=== PATIENT | female | born 1950 | race Two or more races ===

== ENCOUNTER 2017-09-17 21:44 | Emergency (ER) | payer MEDICARE, OTHER ==
[~2017-09-17] VITALS: Ht 147.3 cm; Wt 62.1 kg
[2017-09-17] MEDS ORDERED: ALLOPURINOL300 MG PO (22:38)
[2017-09-17] MEDS ORDERED: LISINOPRIL30 MG PO (22:38)
[2017-09-17] MEDS ORDERED: LEVOTHYROXINE88 MCG PO (22:39)
[2017-09-17] MEDS ORDERED: ASPIR-LOW81 MG PO (22:39)
[2017-09-17] MEDS ORDERED: VITAMIN D22000 UNIT PO (22:40)
== END 2017-09-17 23:11 | disposition home or self-care (01) ==
LOC: ED 21:44
DX: M10.9 Gout, unspecified (principal); I10 Essential (primary) hypertension; E03.9 Hypothyroidism, unspecified; F17.200 Nicotine dependence, unspecified, uncomplicated; Z88.5 Allergy status to narcotic agent; Z88.6 Allergy status to analgesic agent; Z79.82 Long term (current) use of aspirin; Z79.899 Other long term (current) drug therapy
CPT/HCPCS: 99282

== ENCOUNTER 2021-01-25 15:39 | Observation (INO) | payer MEDICARE, OTHER ==
[~2021-01-25] VITALS: Ht 147.3 cm; Wt 54.7 kg
[~2021-01-25 15:39] MED LIST: ALLOPURINOL300 MG PO; ASPIR-LOW81 MG PO; LEVOTHYROXINE88 MCG PO; LISINOPRIL30 MG PO; VITAMIN D22000 UNIT PO
--- NOTE | 2021-01-25 18:55 | EKG ---
[facility] [address] [facility] [place] [address] Signed Normal sinus rhythm Biatrial enlargement Rightward axis Pulmonary disease pattern T wave abnormality, consider inferior ischemia Abnormal ECG No previous ECGs available Confirmed by LILIA FISCHER MD ([id number]) on 01/25/2021 6:54:51 PM Electronically Signed By: LILIA FISCHER MD 01/25/21 1855 PATIENT NAME: MELBA BRENNANJOYCE DALTON Electrocardiogram DATE OF : 52 PHYSICIAN: LILIA FISCHER MD REPORT #: [id number] REPORT IS CONFIDENTIAL AND NOT TO BE RELEASED WITHOUT AUTHORIZATION
--- NOTE | 2021-01-26 11:09 | CONS ---
[facility] [address] [place], [place] [address] Signed DATE OF CONSULTATION: 01/26/2021 CHIEF COMPLAINT: Shortness of breath. HISTORY OF PRESENT ILLNESS: Jd is a 70-year-old French lady who is originally from [place]. She has been in the [facility] many years. She has worked here in [place], [place] for many years and is now retired. She has her own home and drives. She smoked around a pack of cigarettes a day, but is down to about five cigarettes a day because of the cost. She said her one and only child committed suicide and she is . However, she does have a friend named Eloisa, who spends time with her here in [place]. The last 3-4 weeks she has had trouble with some shortness of breath and dyspnea on exertion and a cough. She thinks maybe there are some brown flecks in the in the clear sputum. Her oxygen levels have been little low, so she decided to come the emergency room yesterday evening for evaluation. In the emergency room, her O2 sats were in the high 80s and low 90s. Chest x-ray showed patchy densities in the right mid lower lung and obscuration of the right hemidiaphragm. In the meantime, CT scan was ordered and she got admitted to the Internal Medicine Service. CT scan came back with a moderate-sized right pleural effusion with tethering of the lung to the lateral chest wall as well as the diaphragm in the middle lobe. She has extensive right hilar mediastinal adenopathy along with multiple lesions in the dome of her liver. There is also at least two spiculated lesions in the right lung. And again, her moderate-sized right pleural effusion. Overall, Jd was resistant to admission and testing and so forth. She still remains anxious to go home. Otherwise, she has been hemodynamically stable. PAST MEDICAL HISTORY: Hypothyroidism, hypertension, and gout. PAST SURGICAL HISTORY: , left carpal release. SOCIAL HISTORY: She was smoking a pack of cigarettes a day, but is down to five cigarettes per day mainly because of cost. She does not drink. Dr. Paul Patel is her primary care provider. She prefers to [facility]. Her only son committed suicide. She is and lives alone. She has a friend Eloisa Montero at [phone]. She has her own house and does drive here in town. FAMILY HISTORY: She was an only child, but she remembers her mom had COPD from smoking and her dad of old age at 97. He had been treated for gallstones. Electronically Signed By: ABI DEVINE MD 01/26/21 1109 PATIENT NAME: JD BRENNAN CONSULTATION DATE OF : 52 REPORT #: [id number] PHYSICIAN: ABI DEVINE MD PCP: PAUL PATEL MD REPORT IS CONFIDENTIAL AND NOT TO BE RELEASED WITHOUT AUTHORIZATION [facility] [address] [place] [id number] Signed REVIEW OF SYSTEMS: Jd had 10 systems reviewed and we focused mainly on her pulmonary symptoms. Those were reviewed above. ALLERGIES: Codeine and Tylenol. MEDICATIONS: Allopurinol, lisinopril, levothyroxine, aspirin, and vitamins. PHYSICAL EXAMINATION: VITAL SIGNS: Her blood pressure is 181/87, heart rate is 81, respiratory rate is 20, temperature 97.4, she is 94% on room air. She is 4 feet 10 inches at 54 kg. GENERAL: Jd is a 70-year-old female lying supine semi-recumbent in her hospital bed. She has good muscle mass. Very minimal shortness of breath. She is able to talk in full sentences. She results of her CT scan. LUNGS: Have bilateral rhonchi. HEART: Regular rate and rhythm without murmur. ABDOMEN: Soft, flat and nontender. I cannot palpate any hepatosplenomegaly. LABORATORY DATA: Her white blood count is 8, hemoglobin 15, neutrophils 66, platelets 217. Electrolytes are unremarkable. COVID is negative. Troponin is negative. BNP is 89. RADIOGRAPHIC STUDIES: The chest x-ray showed patchy density in the right mid and lower lung with obscuration of the right hemidiaphragm. Unfortunately, I cannot get the x-rays to come up today to review them directly. The CT scan of the chest showed the moderate-sized right pleural effusion with at least two spiculated lesions in the right lung and multiple lesions in the top of the liver. The right middle lobe is tethered to her lateral chest wall along with the diaphragm. She has extensive quite enlarged right hilar and mediastinal lymphadenopathy. ASSESSMENT/PLAN: Jd is a 70-year-old female who presents with what appears to be right-sided lung cancer. It is quite extensive. She is a little short of breath, but is able to function at home. She is quite anxious to leave. We talked about her current findings in detail including the CT scan of her chest. She is well aware that this is quite extensive. She is in need of some level of tissue diagnosis. I explained to her that to do this blindly with thoracentesis today would probably be unwise and could lead to a pneumothorax given the fact her lungs tethered to the chest wall and to the diaphragm. She will be much better served to have this done under our controlled condition tomorrow the next day with ultrasound-guided thoracentesis or she can travel to our [facility] to review this with the assistant department manager and decide what would be Electronically Signed By: ABI DEVINE MD 01/26/21 5427 PATIENT NAME: JD BRENNAN CONSULTATION DATE OF : 52 REPORT #: [id number] PHYSICIAN: ABI DEVINE MD PCP: PAUL PATEL MD REPORT IS CONFIDENTIAL AND NOT TO BE RELEASED WITHOUT AUTHORIZATION [facility] [address] [place] [id number] Signed her best options at this point as far as biopsy and treatment beyond that. She understands what we have discussed in detail. I have also reviewed it with Dr. Greer. They have expressed understanding and agreed to above plan. Abi Devine MD ALB/MODL /[id number] cc: MD Abi Moralez MD Copies: PAUL PATEL MD, ANDREW L MD ~ Electronically Signed By: ABI DEVINE MD 01/26/21 1109 PATIENT NAME: JD BRENNAN CONSULTATION DATE OF : 52 REPORT #: [id number] PHYSICIAN: ABI DEVINE MD PCP: PAUL PATEL MD REPORT IS CONFIDENTIAL AND NOT TO BE RELEASED WITHOUT AUTHORIZATION
[2021-01-27] MEDS ORDERED: LEVOTHYROXINE75 MCG PO (08:25)
[2021-01-27] MEDS ORDERED: ALBUTEROL2.5 MG/3 M INH (12:40)
--- NOTE | 2021-01-27 18:29 | CONS ---
[facility] [address] [place], [place] [address] Signed DATE OF CONSULTATION: 01/26/2021 CONSULTING PHYSICIAN: Liz Justin MD REQUESTING PHYSICIAN: Nola Greer MD PROBLEM: Symptomatic right pleural effusion, likely malignant. HISTORY OF PRESENT ILLNESS: This 70-year-old dark-skinned woman was admitted by Dr. Greer on January 25, 2021, having been seen through the emergency room with significant shortness of breath. A chest x-ray showed haziness of the right pleural space and chest and subsequent CT scan was obtained, which shows a moderate-size right-sided pleural effusion, a significant mediastinal mass with adenopathy, and probable metastatic disease to the liver. The patient continues to smoke. The patient was considered to have acute hypoxemic respiratory failure at presentation. She has extreme shortness of breath with any exertion. She is noted to have negative COVID-19 test. LABORATORY DATA: Other laboratory studies showed a normal troponin level. BNP of only 89 and normal electrolytes. Creatinine is 1.03. White count of 9.5, hematocrit 49, and platelet count of 250,000. Dr. Greer requests evaluation and consideration for decompression of the right pleural effusion on the basis of probable underlying incurable neoplasm. There were no other resources available to accomplish this task at this time. REVIEW OF SYSTEMS: The patient denies any hemoptysis. She does have significant shortness of breath. Most dominantly, she would like a shower right now. PHYSICAL EXAMINATION: GENERAL: A small dark-skinned white woman, who looks to be alert and oriented without sign of delirium. VITAL SIGNS: Temperature is 97.6, pulse 95, blood pressure 136/69, O2 saturation is 96% on 3 L nasal cannula. HEENT: Trachea is midline. CHEST: Shows dullness to percussion in the right lung base. Left side normal. Electronically Signed By: LIZ JUSTIN MD 01/27/21 1829 PATIENT NAME: JD BRENNAN CONSULTATION DATE OF : 52 REPORT #: [id number] PHYSICIAN: LIZ JUSTIN MD PCP: PAUL KHAN MD REPORT IS CONFIDENTIAL AND NOT TO BE RELEASED WITHOUT AUTHORIZATION [facility] [address] [place], [place] [address] Signed EXTREMITIES: Show minimal clubbing. ASSESSMENT: I have reviewed the plain chest x-ray as well as the CT scan in detail. I do not believe there is high likelihood of pleural tethering and her pleural effusion would be considered moderate, but likely contributing to her subjective shortness of breath at this time. If malignancy is identified on pleural fluid cytology as it is quite likely, this would indicate incurable neoplasm for which palliative treatment might be indicated. This could include possibility of pleurodesis to prevent recurrent effusion. I discussed the risks of bleeding, infection, pneumothorax, and so forth to the patient. Any of those complications may require a formal chest tube. She understands that. Under these circumstances, she does wish to proceed with the procedure, which we will perform today. MD YEMI Rodriguez/VICENTA /[id number] cc: MD Nola Moralez MD Copies: PAUL KHAN MD, CYNTHIA MD ~ Electronically Signed By: LIZ JUSTIN MD 01/27/21 1829 PATIENT NAME: JD BRENNAN CONSULTATION DATE OF : 52 REPORT #: [id number] PHYSICIAN: LIZ JUSTIN MD PCP: PAUL KHAN MD REPORT IS CONFIDENTIAL AND NOT TO BE RELEASED WITHOUT AUTHORIZATION
--- NOTE | 2021-01-27 18:29 | OR ---
[facility] [address] [place], [place] [address] Signed DATE OF OPERATION: 01/26/2021 SURGEON: Liz Justin MD PREOPERATIVE DIAGNOSIS: Right pleural effusion, symptomatic, probably malignant. POSTOPERATIVE DIAGNOSIS: Right pleural effusion, symptomatic, probably malignant. PROCEDURE: Right thoracentesis. ANESTHESIA: 1% lidocaine. INDICATION: This 70-year-old woman lives locally and has for many years. She presented to the emergency room with shortness of breath on 01/25/2021, was admitted by Dr. Greer for finding showing a right-sided pleural effusion. A CT scan was subsequently performed confirming a moderate size right-sided pleural effusion. There was mediastinal adenopathy, a central hilar lung lesion and probable hepatic metastasis as well. I have been requested by Dr. Greer to perform right-sided thoracentesis to assist in improvement of her dyspnea. The patient understands the risks of bleeding, infection, pneumothorax, and so forth related to thoracentesis and wished to proceed. FINDINGS: Fatoumata colored fluid was noted. Only 550 mL were withdrawn. I expected more. Intermittent catheter drainage was noted rather than continuous. A postprocedure chest x-ray is pending. DESCRIPTION OF PROCEDURE: The patient was placed in the upright position with arms draped over a Kaye stand and the right posterior chest wall examined closely. The tip of the scapula was marked and the posterior thorax prepared with a chlorhexidine solution. At the tip of the scapula, a rib was identified and local anesthesia 1% lidocaine was injected with sterile technique. The rib was anesthetized itself and passage of the anesthetizing needle over the rib did not particularly demonstrate fluid as I had expected. The thoracentesis Electronically Signed By: LIZ JUSTIN MD 01/27/21 1829 PATIENT NAME: JD BRENNAN OPERATIVE REPORT DATE OF : 52 REPORT #: [id number] PHYSICIAN: LIZ JUSTIN MD PCP: PAUL KHAN MD REPORT IS CONFIDENTIAL AND NOT TO BE RELEASED WITHOUT AUTHORIZATION [facility] [address] [place], [place] [address] Signed catheter was then carefully placed directly over the 7th rib after making a small chavo in the skin with an #11 blade. This delivered only minimal fluid. A similar procedure was then taken a few cm lateral to this along with same rib and then at this point, fatoumata colored fluid was obtained. The catheter was once again replaced in the pleural space and attached to a three-way stopcock and drainage of fluid undertaken. Only 550 mL of fluid was retrieved, I expected more but, the drainage of the fluid was only intermittent and not as vigorous as often seen. When adequate fluid had been withdrawn, the catheter was removed, both sites were secured with Band-Aids. The fluid would be sent for cytologic examination as well as the usual chemistries and culture and so forth. A postprocedure chest x-ray will be obtained. She tolerated procedure well clinically. MD YEMI Rodriguez/VICENTA /[id number] cc: Lilia Greer MD Copies: LILIA GREER MD ~ Electronically Signed By: LIZ JUSTIN MD 01/27/21 1829 PATIENT NAME: JD BRENNAN OPERATIVE REPORT DATE OF : 52 REPORT #: [id number] PHYSICIAN: LIZ JUSTIN MD PCP: PAUL KHAN MD REPORT IS CONFIDENTIAL AND NOT TO BE RELEASED WITHOUT AUTHORIZATION
== END 2021-01-27 15:50 | disposition home or self-care (01) ==
LOC: ED 15:39 → MS 15:41 → ED 20:06 → MS 20:06
PROVIDERS: ADMIT Internal Medicine; ATTEND Internal Medicine
PROC: 0W9930Z Drainage of Right Pleural Cavity with Drainage Device, Percutaneous Approach (ICD-10-PCS; principal; 2021-01-26)
DX: J90 Pleural effusion, not elsewhere classified (principal); J96.01 Acute respiratory failure with hypoxia; J95.811 Postprocedural pneumothorax; T79.7XXA Traumatic subcutaneous emphysema, initial encounter; T81.82XA Emphysema (subcutaneous) resulting from a procedure, initial encounter; R91.8 Other nonspecific abnormal finding of lung field; J44.9 Chronic obstructive pulmonary disease, unspecified; I10 Essential (primary) hypertension; E03.9 Hypothyroidism, unspecified; M10.9 Gout, unspecified; F17.201 Nicotine dependence, unspecified, in remission; Z20.822 Contact with and (suspected) exposure to COVID-19; Z88.8 Allergy status to other drugs, medicaments and biological substances; Z88.5 Allergy status to narcotic agent; Z98.890 Other specified postprocedural states; Z79.82 Long term (current) use of aspirin; Z79.899 Other long term (current) drug therapy
CPT/HCPCS: 71045; 71260; 80048; 83986; 84484; 85025; 85730; 88112; 88305; 89051; 93005; 93010; 94640; 94761; 96372; 99285-25; C9803; G0378; J1644; J3480; J7060; Q9967; U0003

== ENCOUNTER 2021-01-29 18:54 | Inpatient (IN) | payer MEDICARE, OTHER ==
[~2021-01-29] VITALS: Ht 147.3 cm; Wt 52.5 kg
[~2021-01-29 18:54] MED LIST changes: +ALBUTEROL2.5 MG/3 M INH; +LEVOTHYROXINE75 MCG PO
--- OUTSIDE RECORDS SUMMARY | 2021-01-29 19:02 | XMS ---
PreManage Notification: JD BRENNAN Security Brim Shaper Events No recent Security Events currently on file CRITERIA MET - [facility] - 2 Visits in 30 Days CARE PROVIDERS There are no care providers on record at this time. Josiah has no Care Guidelines for this patient. [facility] MO[facility] NOTE: Visits indicate total known visits. ED/[facility] VISIT TRACKING (12 MO.) [facility] COMPLAINT: - CHEST PROBLEM 01/25/2021 15:40 [facility] OR TYPE: Emergency COMPLAINT: - SOB, DIZZYNESS, COUGH INPATIENT VISIT TRACKING (12 MO.) 01/25/2021 20:06 RO[facility] Zamora OR TYPE: Medical Surgical COMPLAINT: - ACUTE HYPOXEMIC RESP. 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
--- NOTE | 2021-01-29 22:20 | NUR ---
PATIENT ARRIVED FROM ER VIA STRETCHER WITH NURSING GOVERNMENT PROFESSOR. PATIENT USES BEDSIDE COMMODE AND VOIDED. PATIENT IN BED AND CHEST TUBE CONNECTED TO LOW WALL SUCTION AND THERE IS NO AIR LEAK. PATIENT TITRATED DOWN FROM 6L/NC TO 4L/NC AND IS AT 93% AND CONTINUOUS PULSE OX PLACED. PATIENT'S IV FLUSHED AND WNL. SHAHRZAD DIRECTOR OF BUSINESS DEVELOPMENT ASKING ADMISSION HX QUESTIONS AND SAV JENNINGS HELPING IN THE ROOM.
--- NOTE | 2021-01-29 23:00 | NUR ---
PATIENT GIVEN FRESH ICE WATER AND 2 JELLOS. PATIENT'S CHEST TUBE TO LOW WALL SUCTION WITH NO AIR LEAK AND REMAINS ON 4L/NC. CALL LIGHT IN REACH.
--- NOTE | 2021-01-29 23:59 | NUR ---
PATIENT RESTING QUIETLY IN BED WATCHING TV. PATIENT ON 4L/NC AND SATS AT 93%. CHEST TUBE HAS NO LEAKS AND REMAINS ON LOW WALL SUCTION. PATIENT DENIES PAIN OR NAUSEA. NO OTHER CARE NEEDS AT THIS TIME. CALL LIGHT IN REACH.
--- NOTE | 2021-01-30 02:00 | NUR ---
PATIENT UP TO THE BEDSIDE COMMODE AND BACK TO BED WITH 1PA. PATIENT'S VS REMAIN STABLE ON 4L/NC AND CHEST TUBE REMAINS TO LOW WALL SUCTION AND THERE IS NO AIR LEAK. PATIENT HAD NO OTHER CARE NEEDS AT THIS TIME. CALL LIGHT IS IN REACH.
--- NOTE | 2021-01-30 04:34 | NUR ---
PATIENT REMAINS ON 4L/NC AND O2 SATS 95% WITH HR=76, EYES ARE CLOSED, RESPIRATIONS REGULAR AND EVEN, CALL LIGHT IS IN REACH.
--- NOTE | 2021-01-30 06:30 | NUR ---
PATIENT'S VS ARE STABLE AND LUNGS ASCULTATED AND SOUND LIKE THEY ARE INFLATING EQUALLY. NO SUBCUTANEOUS EMPHYSEMA NOTED, BUT THERE HAS BEEN A FAIR AMOUNT OF PINK DRAINAGE FROM UNDER THE PATIENT'S DRESSING WITH HER COUGHING. CHEST TUBE SYSTEM STILL SHOWS THE SYSTEM TO BE CLOSED AND NO LEAK. CALLED ABOUT THE DRESSING LEAKING AND ORDERS WERE GIVEN TO TAKE DOWN THE DRESSING AND REPLACE THE PETROLEUM GUAZE, GUAZE, AND TAPE. THIS WAS DONE AND PATIENT TOLERATED IT WELL AND DRAINAGE SYSTEM STILL WITHOUT LEAK AND REMAINS TO SUCTION AT -20. CALL LIGHT IS IN REACH.
--- NOTE | 2021-01-30 07:03 | NUR ---
Report from Isak Orourke RN. Patient lying in bed. Chest tube in place. No leaking noted. Drainage of 350 mL throughout night of serosanguinous drainage. Respirations even and unlabored, chest rise and fall equal bilaterally, no tracheal deviation. Remains on 4L/min per NC O2. Denies shortness of breath. Call light in reach, bed rails up X2.
--- NOTE | 2021-01-30 07:20 | NUR ---
Medications reconciled
--- NOTE | 2021-01-30 07:47 | NUR ---
Shift report recieved from VANDANA Andersen, pt resting in bed safely w/ call light in reach.
--- NOTE | 2021-01-30 08:00 | NUR ---
Tape for dressing to right chest tube reinforced. No leaking noted. Chest with equal rise and fall. No tracheal deviated noted. Respirations even and unlabored. Remains on O2 per NC at 4L/min. Denies feeling short of breath. Assist to sit up in bed for breakfast. Does not want to get in recliner when offered.
--- NOTE | 2021-01-30 08:20 | NUR ---
Pt SBA to BSc, pt voided and now sitting up in bed safely eating breakfast. Chest tube in place no leak obsereved, and no new drainage. Lungs ascultated, inspriratory/expiratory wheezes throughout. Chest expansion equal, VSS on 4L of O2. Pt denies any pain or SOB. No further needs at this time.
--- NOTE | 2021-01-30 08:58 | NUR ---
Uses call light for assist to bedside commode. O2 sats remain in mid to high 90's on 4L/min per NC O2. Continent of bowel and bladder. Returns to bed. No air leak noted in chamber, no bubbling, dressing remains in place. No shortness of breath or chest pain noted. Chest expansion equal bilaterally. No tracheal deviation noted. Returns to bed. Call light in reach. Bed rails up X2.
--- NOTE | 2021-01-30 10:02 | NUR ---
Provider in room assesing pt, verbal order to start pt's home dose of lisinopril.
--- NOTE | 2021-01-30 10:22 | NUR ---
Dressing to right chest reinforced by this nurse. No leak noted. O2 remains on 4L/min per NC. Standby assist to bedside commode. Continent of urine. Assist into recliner to sit up. Chest tube remains in place. Denies shortness of breath. Chest rise and fall equal bilaterally. No tracheal deviation noted. Pulse ox reading mid 90's at this time. Will continue to monitor. Chest tube with small amount of serous drainage noted. Call light in reach.
--- NOTE | 2021-01-30 10:34 | NUR ---
PATIENT SITTING UP IN CHAIR. DOES NOT NEED ANYTHING AT THIS TIME. CALL LIGHT IN REACH.
--- NOTE | 2021-01-30 12:00 | NUR ---
Pt SBA to bathroom, pt cpmpleted oral care and bed bath w/ assistance, pt now back in bed w/ call light in reach. Pt denies SOB, chest tube remains in place on the R side, no leak obsereved. VSS on 4L O2. 2nd assesment complete, IV fluids infusing per provider order.
--- NOTE | 2021-01-30 14:00 | NUR ---
Pt resting in bed safely w/ call light in reach, visitor in room. Pt denies any needs at this time
--- NOTE | 2021-01-30 14:12 | NUR ---
IV LR bolus complete. New bag of IVF infused. Standby assist to bedside commode. Continent of urine. Returns to bed. O2 sats in mid 90's on 4L/min per NC oxygen. No shortness of breath noted. Chest rise and fall equal bilaterally. No tracheal deviation noted.
--- NOTE | 2021-01-30 17:13 | NUR ---
Assist to bedside commode. Continent of urine. Then sits in recliner to eat supper. Dressing leaking serous drainage, saturated. No leak noted, no c/o shortness of breath. Chest rise and fall equal bilaterally and no tracheal deviation noted. O2 sats remain in mid 90's on oxygen per NC at 4L/min. Call light in reach.
--- NOTE | 2021-01-30 18:11 | NUR ---
Up in chair for meals, calls appropriately, SBA to bathroom. R sided chest tube, hawa changed this evening. VSS on 4L of O2.
--- NOTE | 2021-01-30 18:15 | NUR ---
Chest tube dressing changed. Site cleansed with chlorhexadine prior to clean xeroform and gauze applied. Covered with large opsites X2. No bubbling in canister noted. Chest rise equal bilat. No complaints of shortness of breath. No trachial deviation. Remains on O2 per NC at 4L/min.
--- NOTE | 2021-01-30 18:33 | EKG ---
[facility] [address] [facility] [place] [address] Signed Supraventricular tachycardia Right axis deviation T wave abnormality, consider inferior ischemia Abnormal ECG When compared with ECG of 25-JAN-2021 16:14, Nonspecific T wave abnormality now evident in Lateral leads Confirmed by CHITRA GUILLEN MD ([id number]) on 01/30/2021 6:33:08 PM Electronically Signed By: CHITRA GUILLEN MD 01/30/21 1833 PATIENT NAME: JD BRENNAN Electrocardiogram DATE OF : 52 PHYSICIAN: CHITRA GUILLEN MD REPORT #: [id number] REPORT IS CONFIDENTIAL AND NOT TO BE RELEASED WITHOUT AUTHORIZATION
--- NOTE | 2021-01-30 19:20 | NUR ---
[facility]RISTY AND ANJALI AT BEDSIDE. pt AWAKE AND RESTING IN BED. CHEST TUBE TO WALL SUCTION, NO LEAKING DETECTED. DRESSING RECENTLY CHANGED TO CHEST TUBE, NO SHADOWING AT THIS TIME. WILL MONITOR FOR CHANGES. BOARD UPDATED, CALL LIGHT IN REACH.
--- NOTE | 2021-01-30 19:51 | NUR ---
IN TO PROVIDE FRESH ICE WATER, AT BEDSIDE, WHITEBOARD UPDATED, NO FURTHER NEEDS AT THIS TIME
--- NOTE | 2021-01-30 20:50 | NUR ---
IN TO GET VITALS, I&Os IN, TRASH EMPTIED, NO FURTHER NEEDS AT THIS TIME
--- NOTE | 2021-01-30 21:00 | NUR ---
ASSESSMENT COMPLETE, NO SCHEDULED MEDS (SEE EMAR). IV SITE WNL AND FLUSHES EASILY. pt DENIES PAIN AT REST, ONLY WHEN COUGHING. CHEST TUBE TORIGHT SIDE TO WALL SUCTION, NO LEAKING NOTED FROM CANISTER. NO LEAKING NOTED TO DRESSING, WILL MONITOR FOR CHANGES. 4LNC IN PLACE, NO DISTRESS NOTED. VISITOR IN ROOM, NO FURTHER NEEDS. CALL LIGHT IN REACH.
--- NOTE | 2021-01-30 21:45 | NUR ---
ASSISTED PT TO USE BSC, SHE IS NOW BACK IN BED. PT MADE A LOT OF NOISES WITH TRANSFER TO BSC AND THIS RN ASKED IF SHE HAS HAD PAIN MEDICATION RECENTLY. PT STATES "NO I DON'T WANNA TAKE ANY, I JUST WANT TO GO HOME". ASKED IF THERE IS ANYTHING ELSE SHE NEEDS AND SHE JUST REQUESTED ICE. PT DENIES FURTHER NEEDS. CALL LIGHT IS CLOSE.
--- NOTE | 2021-01-31 00:39 | NUR ---
IN TO ASSIST PT TO THE BSC, NOTED CHEST TUBE BANDAGE WAS LEAKING, RN NOTIFIED, PT BACK TO BED, RN AND PLASTIC AND RECONSTRUCTIVE SURGEON IN TO ASSESS BANDAGE
--- NOTE | 2021-01-31 00:57 | NUR ---
NOTIFIED BY MORTGAGE LOAN PROCESSOR THAT CHEST TUBE DRESSING WAS LEAKING. WITH HELP FROM BANQUET CHEF AMOR, DRESSING CHANGED. SITE CLEANED WITH CHLORHEXADINE, XEROFORM GAUZE AND 4X4 GAUZE APPLIED FOLLOWED WITH OPSITES X2. REMAINS TO WALL SUCTION, OUTPUT IN CANISTER SEROSANGUINEOUS IN COLOR. CPOX ALSO IN PLACE, O2 SAT UPPER 90'S ON 4LNC, HR 90'S. pt TOLERATED DRESSING CHANGE WELL, EQUAL CHEST RISE NOTED. DENIES SOB. NO TRACHIAL DEVATION NOTED. pt APPEARS COMFORTABLE AND REPORTS SHE "FEELS BETTER". pt DOES REPORTS DIFFILCULTY SLEEPING DUE TO SCHEDULED CT IMAGING, THERAPEUTIC COMMUNICATION PROVIDED. CALL LIGHT IN REACH.
--- NOTE | 2021-01-31 02:30 | NUR ---
IN TO CHECK ON PTs CHEST TUBE DRAINAGE, FILLED ICE WATER, NO FURTHER NEEDS AT THIS TIME
--- NOTE | 2021-01-31 02:45 | NUR ---
pt AWAKE AND RESTING IN BED, REPORTS RECENT NOSE BLEED. RESOLVED ON ITS OWN WITHOUT INTERVENTION. pt DENIES NEED TO SWITCH TO OXYMASK, WILL MONITOR. CPOX IN PLACE, O2 SAT REMAINS IN MID TO UPPER 90'S ON 4LNC. pt REPORTS IRRITATION WITH NASAL CANULA BEHIND EAR, RT NATASHA AWARE AND LOOKING FOR EAR PAD. HR 80'S-90'S. RR EVEN AND UNLABORED, NO DISTRESS OR REPORTS OF SOB NOTED. CHEST TUBE REMAINS TO WALL SUCTION, NO LEAKING DETECTED VIA CHEST TUBE CANISTER, WILL CONTINUE TO MONITOR. INTERMITTENT COUGH REMAINS NOTED. CALL LIGHT IN REACH.
--- NOTE | 2021-01-31 05:13 | NUR ---
CALL LIGHT ANSWERED, pt UP SBA TO VOID VIA BSC. IV SITE TO LEFT HAND INFILTRATED, SITE DISCONTINUED. CATHETER TIP INTACT. WITH HELP FROM CULLET WASHER, NEW 20G PLACED TO RIGHT WRIST. pt TOLERATED WELL AND BLOOD COLLECTED AND SENT TO LAB. TOURNIQUET REMOVED. IV FLUIDS RESUMED PER MD ORDERS. ASSESSMENT COMPLETE, NO NEW CHANGES OR CONCERNS. CALL LIGHT IN REACH.
--- NOTE | 2021-01-31 05:27 | NUR ---
SCHEDULED THYROID MED GIVEN, SEE EMAR. RT NATASHA CALLED FOR PRN BREATHING TREATMENT. MICHAELA CHOI IN ROOM FOR VS AND I&O'S. CALL LIGHT IN REACH, NO FURTHER NEEDS VERBALIZED AT THIS TIME.
--- NOTE | 2021-01-31 07:25 | NUR ---
REPORT RECEIVED FROM VANDANA FORBES. PT RESTING ON LEFT SIDE WITH EYES CLOSED. CHEST TUBE IN PLACE, NO FLUCUATION OF FOAT BALL IN NOTED WITH RESPIRATIONS. WILL FULLY EVALUATE WITH MORNING ASSESSMENT. PT ALLOWED TO REST UNDESURBED AT THIS TIME. RESPIRATIONS EVEN AND UNLABORED. o2 AT 4L BY NC REMAINS IN PLACE. OXYGEN SATURATION OF 94% WITH HEART RATE OF 93. CALL LIGHT WITHIN REACH. BED RAILS UP.
--- NOTE | 2021-01-31 07:46 | NUR ---
MORNING ASSESSMENT AND MEDICATION DUE. PT AWAKE AND ALERT AND OREITNED TO ALL. PT REPORTS 0/10 PAIN WHEN RESTING AND 8/10 PAIN WHEN SHE HAS TO COUGH. PT DECLINES PAIN MEDICATION. ASSESSMENT DONE. FOAT BALL CONTINUES TO STAY STATIONARY. SUCTION TURNED OFF AND FLOAT BALL RISES TO 15CM, NO OSCULATION NOTED. CHEST TUBE OTHERWISE APPEARS PATTENT. WATER SEAL IS FILLED TO THE 2 CM LINE WITH NO BUBBLING NOTED AT ANY TIME. 0ML DRAINAGE NOTED SINCE SHIFT CHANGE REPORT. FLOAT BALL PRESENT AT THE 0CM LINE WITH WALL SUCTION SET TO 80 INDICATING TOTAL PT PRESSURE OF 80MM/HG. DRESSING INTACT WITH NO DRAINAGE LEAKING FROM SIDES. GAUZE UNDER DRESSING APPEARS MOIST WITH SERIOUS DRAINAGE. OPSITE INTACT. NO AIR LEAK NOTED. TRACHEA MIDLINE. PT REPORTS HER BREATHING FEELS "THE SAME." RR OF 20 WITH REST. PT UP TO BEDSIDE COMODE WITH RR INCREASING TO 28. OXYGEN SATURATION OF 94% WITH PT ON 4L O2 BY NC WHILE RESTING, OXYGEN SATURATION DECLINES TO 88% WITH ACTIVITY. HEART RATE INCREASES WELL TO 104 WITH ACTIVITY. LUNG SOUNDS NOTED IN ALL LOBES, CLEAR ON RIGHT SIDE, CORSE AND WHEEZY ON LEFT SIDE. PT DECLINES USE OF I.S. IS WILLING TO TRY ONE TIME AND REACHES 250ML. PT REPORTS "I DON'T WANT TO DO THAT THING." EDUCATION DONE WITH PT REGARDING BENIFITS OF I.S. USE, PT CONTINUES TO DECLINE. PT VOIDS 200ML CLEAR YELLOW URINE. ELADIA CARE DONE BY PT. DEPENDS REMAINS IN PLACE, PT DECLINES NEW DEPENDS. MEDICATIONS GIVEN (SEE MAR). PT UP TO CHAIR WITH STAND BY ASSIST FOR TUBE AND LINE MANAGEMENT. PT EATING BREAKFAST. PT VERBALIZES UNDERSTANDING OF CALL LIGHT. CALL LIGHT WITHIN REACH. PT EASILY VIEWED FROM NURSES STATION.
--- NOTE | 2021-01-31 08:20 | NUR ---
PT VERY UPSET THAT SHE HAS NOT RECEIVED HER LISINOPRIL TODAY. EDUCATION DONE WITH PT REAGARDING HER RECENT BLOOD PRESSURES. VITAL SIGNS TAKEN PER PT REQUEST, VA=[phone] AT THIS TIME. PT REQUESTS THAT MD BE UPDATED. WILL UPDATE MD. PT DECLINES NICOTENE PATCH, HELD PER PT REQUEST.
--- NOTE | 2021-01-31 09:25 | NUR ---
DR. FELIPE UPDATED ON PT CONDITION, CHEST TUBE STATUS, CHEST TUBE DRESSING AND PTS REQUEST FOR LISINOPRIL. MD TO ROOM FOR ROUNDS. STATES CHEST TUBE IS WNL, NO ACTION NEEDED. STATES TO CHANGE CHEST TUBE DRESSING PRN WHEN SATURATED. NO ADDITIONAL NEW ORDERS.
--- NOTE | 2021-01-31 09:47 | NUR ---
15MLS OF GASTROGRAFIN DILUTED IN 591MLS OF WATER AND GIVEN TO PT.
--- NOTE | 2021-01-31 10:24 | NUR ---
THIS RN TO ROOM TO CHECK ON PT. PT DENIES PAIN "EXCEPT WHEN I COUGH." PT DENIES NAUSEA. STAND BY ASSIST UP TO BEDSIDE COMODE TO VOID AND HAVE BOWEL MOVEMENT. CHEST TUBE DRESSING NOTED TO BE SATURATED WITH SEROUS DRAINAGE, DRANGE ALSO LEAKING ONTO SHEETS. DRESSING CHANGE PER MD ORDER DONE TO CHEST TUBE SITE. NEW PETROLIUM GAUZE, 4X4 GAUZE AND OPSITE APPLIED. PT TOELRATED WITH MINIMAL PAIN. EDUCATION DONE WITH PT REGARDING CT SCAN. PT VERBALIZES UNDERSTANDING. PT ENCOURAGED TO TAKE PAIN MEDICATION PRIOR TO SCAN. PT STATES SHE WILL "THINK ABOUT IT." 2ND DOES OF GASTROGRAPHIN GIVEN. PT DRINKING SLOWING, FINISHED FIRST DOES WITHOUT ISSUE. PT RESINGIN BED ON LEFT SIDE. NO ADDITIONAL REQUESTS OR COMPLAINTS. CHEST TUBE WNL WITH NEW SERIOUS DRAINAGE NOTED IN DRAINAGE COMPARTEMENT. NO BUBBLES NOTED, VARIFIYING NO AIR LEAK. FLOATING BALL REMAINS STATIONARY AT 0CM ANNETTE WITH 80MM/HG SUCTION APPLIED. MD AWARE AND STATES CHEST TUBE WNL AT THIS TIME. WARM BLANKET PROVIDED. NO ADDITIONAL REQUESTS OR COMPLAINTS. CALL LIGHT WITHIN REACH. BED RAILS UP.
--- NOTE | 2021-01-31 11:33 | NUR ---
PT 60% FINISHED WITH SECOND BOTTLE OF CONTRAST. CT CALLED AND UPDATED, WILL ARRIVE IN ~20MINUTES TO TAKE PT TO CT. PT ENCOURAGED TO TAKE PAIN MEDICAITON PRIOR TO CT. PT DECLINES. EDUCATION DONE, PT CONTINUES TO DECLINE. NO ADDITIONAL REQUESTS OR COMPLAINTS. CALL LIGHT WITHIN REACH.
--- NOTE | 2021-01-31 11:54 | NUR ---
PT ASSSITED TO BSC AND BACK TO BED. PT MOSTLY INDEPENDENT WITH MINIMAL ASSISTANCE NEEDED.
--- NOTE | 2021-01-31 11:55 | NUR ---
PT TO CT. CONTINUES TO DECLINE PAIN MEDICAITON.
--- NOTE | 2021-01-31 11:57 | NUR ---
PT BEING PREPPED TO BE TAKEN TO IMAGING. WILL FOLLOW
--- NOTE | 2021-01-31 12:02 | NUR ---
PT OFF FLOOR TO IMAGING.
--- NOTE | 2021-01-31 12:31 | NUR ---
PT RETURNED FROM CT. O2 SATURATION AT 84% ON 4L O2 BY NC. PT TACHYPENIC. PT AND CT TECHNITIAN STATES PT HAD TROUBLE WITH SHORTNESS OF BREATH DURING CT SCAN. PT STATES IT WAS "REALLY HARD" TO LYE FLAT. O2 INCREASED TO 6L O2 BY NC. LUNG SOUNDS WHEEZY THROUGHOUT. RT CALLED AND TO BEDSIDE FOR BREATHING TREATEMENT. O2 WEANED BACK TO 4L O2 BY NC AFTER BREATHING TREATMENT. CHEST TUBE REMAINS WNL, NO BUBBLING NOTED IN WATER SEAL CHAMBER. FLOAT BALL REMAINS AT 6CM WITH SUCTION APPLIED TO 80MM/HG FOR TOTAL PATIENT PRESSURE OF 86. LUNCH ORDER PLACED FOR PT. PT DENIES PAIN AND NAUSEA. NO ADDITIONAL REQUESTS OR COMPLAINTS. CALL LIGHT WITHIN REACH. BED RAILS UP.
--- NOTE | 2021-01-31 13:15 | NUR ---
AFTERNOON ASSESSMENT DUE. PT VISITING WITH FRIENDS AT BEDSIDE. O2 SATURATION REMAINS AT 95% ON 4L O2 BY NC WITH HEART RATE OF 103. RR = 28 WHILE PT IS UP AND VISITING, DECREASES TO 24 WHEN PT IS RESTING. SHALLOW BREATHS NOTED. CHEST TUBE EVALUATTED. WATER SEAL FILLED TO 2CM LINE WITH NO BUBBLING NOTED IN WATERSEAL CHAMBER. FLOAT BALL AT 4CM LINE WITH SUCTION IN PLACE AT 82MM/HG FOR TOTAL PT PRESSURE OF 86. UNIT PLACED ON FLOOR BELOW PTS CHEST. NO FLUCUATION OF FLOAT BALL NOTED, MD AWARE. DRESSING TO RIGHT CHEST, TUBE INCERTION SITE, 80% SATURATED. PT DECLINES DRESSING CHANGE AT THIS TIME STATING, "LETS DO IT LATER." ARRANGEMENTS MADE WITH PT FOR DRESSING CHANGE THIS AFTERNOON. MILD TACHYCARDIA CONTINUES. PT DEMONSTRATES USE OF I.S. REACHING 500ML. NO ADDITIONAL REQUESTS OR COMPLAINTS AT THIS TIME. PT CONTINUES VISITING WITH FRIENDS. CALL LIGHT WITHIN REACH. BED RAILS UP.
--- NOTE | 2021-01-31 13:30 | NUR ---
Met with pt and she states she spoke with Dr. Bell and has good news. She feels she may not have cancer and lung issues are COPD or Emphysema. Pt has labored breathing throughout our conversations. Wants to go home with SO on discharge but has fear SO may find her in her bed. She states she has not been able to complete any activities around her house for 2 months. Pt unsure of what or how she wants to proceed. States Dr informed her she may need to transfer to higher level of care for further assessment of liver and lungs. Discussed I will see her Wednesday and we can discuss some options such as how to seek evaluation for state paid cg in the home.
--- NOTE | 2021-01-31 15:44 | NUR ---
PT UP FOR SHOWER WITH SOLAR ENERGY ENGINEER. HAIR WASHED, ELADIA CARE DONE. THIS RN TO ROOM TO EVAULATE CHEST TUBE AFTER SHOWER. CHEST TUBE WNL, SERIOUS DRAINAGE NOTED IN CHEST TUBE TUBING, NO BUBBLES NOTED IN WATER SEAL CHAMBER. FLOAT BALL STEADY AT THE 10CM LINE, NO FLUCUATIONS NOTED, MD AWARE. CHEST TUBE UNIT POSITIONED BELOW PTS CHEST ON FLOOR BELOW BED. SHALLOW BREATHING NOTED. O2 AT 95% ON 4L O2 BY NC. DRESSING TO CHEST TUBE SATURATED WITH SERIOUS DRAINAGE. DRESSING CHANGED PER MD ORDER WITH PETROLIUM GAUZE, 4X4'S, AND OPSITE APPLIED. PT TOELRATED DRESSING CHANGE WELL. PT DENIES PAIN AND NAUSEA. IV ASSESSED, WNL, NO S/S PHELBITIS NOTED. ALOCHOL CAP IN PLACE. WARM BLANKETS PROVIDED. PT RESTING WITH EYES CLOSED. CALL LIGHT WITHIN REACH. BED RAILS UP. NO ADDITIONAL REQUESTS OR COMPLAINTS.
--- NOTE | 2021-01-31 17:25 | NUR ---
PT HERE FOR RIGHT SIDED HYDROPNEUMOTHORAX. PT UP WITH 1 PERSON ASSIST FOR LINE MANAGEMENT THIS SHIFT. PT PAINFUL WITH ACTIVIES AND COUGH BUT OTHERWISE DENIES PAIN AND NAUSEA THIS SHIFT. PT DECLINES ALL PAIN MEDICATIONS. pT TOLERATING REGULAR DIET WITH GOOD APPITITE. PT REMAINS ON 4L O2 BY NC WITH OXYGEN SATURATIONS ABOVE 90% EXCEPT AFTER ABDOMINAL CT SCAN. WHEN RETURNED FROM SCAN PT DESTATED TO 84%, RECOVERED WITH NEBULIZER TX AND TEMPORARY INCREASE IN OXYGEN. LUGN SOUNDS CLEAR ON RIGHT SIDE WITH CRACKELS AT TIMES ON LEFT AND EXPIRATORY WHEEZES ON AND OFF. CHEST TUBE REMAINS WNL WITH SUCTION IN PLACE. CHEST TUBE DRESSING CHANGED X2 THIS SHIFT. SHOWER THIS SHIFT. PT VOIDING QUANTITY SUFFICIENT. PT USES CALL LIGTH APPROPRIATLY.
--- NOTE | 2021-01-31 18:11 | NUR ---
THIS RN TO ROOM TO CHECK ON PT. PT RESTING IN BED. PT REPORTS 6/10 ABDOMINAL CRAMPING PAIN STATING THAT IT STARTED AFTER EATING DINNER. PT STATES SHE HAS HAD SIMILAR TROUBLE IN THE PAST WITH [employer]ODUCTS. STAND BY ASSIST UP TO BEDSIDE COMODE. PT VOIDS 200ML CLEAR YELLOW URINE WITH OUT ISSUE. SMALL SOFT BOWEL MOVEMENT NOTED, WHICH PT REPORTS "HELPED" THE PAIN. PT CONTINUES TO DECLINE PAIN MEDICATION. HEAT PACK PROVIDED. ELADIA CARE DONE. STAND BY ASSIST BACK TO BED. PT VISISITNG WITH FRIEND. CHEST TUBE ASSESSED, WNL. NO BUBBLING NOTED IN WATER SEAL CHAMBER. FOALT BALL NOW LOWER IN CHAMBER AT +1 CM ANNETTE. WALL SUCTION REMAINS SET AT 80. WILL CONTINUE TO MONITOR FOR AIR LEAK. 50ML NEW SEROUS DRAIANGE NOTED IN CANISTER. CHEST TUBE DRESSING WNL, 25% SATURATED WITH SEROUS DRAINAGE AT THIS TIME, OTHERWISE WELL INTACT. PT RESTING IN BED WORKING ON [employer]. NO ADDITIONAL REQUESTS OR COMPLAINTS. CALL LIGHT WITHIN REACH. PTS FRIEND AT BEDSIDE.
--- NOTE | 2021-01-31 18:44 | NUR ---
AFTER PATIENT'S SHOWER TODAY SHE WANTED HER HAIR BLOWED DRIED AND HAIR COMBED. NEW GOWN. NEW ATTENDS. NOW PATIENT IS SITTING UP IN HER BED WORD SEARCH.
--- NOTE | 2021-01-31 19:05 | NUR ---
SHIFT REPORT RECEIVED FROM [facility] VANDANA BECKMAN AT BEDSIDE. pt AWAKE AND RESTING IN BED, CPOX IN PLACE. SPO2 95-96% ON 4LNC, HR UPPER 90'S. CHEST TUBE TO RIGHT SIDE IN PLACE, DRESSING INTACT. NO LEAKING FROM DRESSING AT THIS TIME, WILL MONITOR. CHEST TUBE TO WALL SUCTION, NO BUBBLING WITH VERY SCANT FLOAT BALL OSCILLATION NOTED. BALL FLOAT IS ABOVE ZERO AND REMAINS AT 1 -CMH2O MARKER. WHEN SUCTION IS TURNED OFF, FLOAT BALL RISES TO THE 12-13 -CMH20 MARKER BELOW THE WATER SEAL CHAMBER. ONCE SUCTION IS RESUMED THE FLOAT BALL LOWERS AND RETURNS TO THE 1 -CMH20 MARKER. NO DISTRESS NOTED, RR EVEN AND UNLABORED. pt DENIES NEEDS OR CONCERNS AT THIS TIME. CALL LIGHT IN REACH.
--- NOTE | 2021-01-31 21:05 | NUR ---
ASSISTED PT TO BSC AND BACK TO BED, SHE DENIES FURTHER NEEDS AT THIS TIME. CALL LIGHT IS CLOSE.
--- NOTE | 2021-01-31 21:20 | NUR ---
IN TO GET VITALS, ICE CHIPS AND ICE WATER REFILLED, NO NEW CT DRAINAGE NOTED AT THIS TIME (LAST RECORD AT 1800), NO FURTHER NEEDS, WARM BLANKET PROVIDED
--- NOTE | 2021-01-31 21:31 | NUR ---
ASSESSMENT COMPLETE, CPOX IN PLACE. NO CHANGE TO CHEST TUBE AT THIS TIME. NO BUBBLING OR SIGNS OF AIR LEAK NOTED, VERY SCANT FLOAT BALL OSCILLATION NOTED WITH RESIRATIONS. FLAOT BALL CURRENTLY SITTING AT THE 3 -CMH20 MARKER. CHEST TUBE TO WALL SUCTION, WHEN SUCTION TURNED OFF FLOAT BALL RISES TO THE 13-14 -CMH20 MARKER WITH NO BUBBLING AND SCANT OSCILLATION. SUCTION RESUMED. VSS, RR WNL, EQUAL AND UNLABORED. pt DENIES SOB AND DYSPNEA. IV SITE WNL AND FLUSHES WELL. NO FURTHER NEEDS, CALL LIGHT IN REACH.
--- NOTE | 2021-02-01 00:22 | NUR ---
CALL LIGHT ANSWERED, pt UP SBA TO BSC AND BACK TO BED. pt TOLERATED WELL. 4LNC IN PLACE WITH CPOX. RIGHT CHEST TUBE DRESSING REMAINS INTACT, NO LEAKING NOTED. NO BUBBLING OR SIGNS OF LEAKING NOTED IN AIR LEAK MONITOR. FLOAT BALL SITTING AT THE +1 MARKER. WITH SUCTION PAUSED, FLAOT BALL RISES TO THE 11 -CMH20 MARKER AND FALLS BACK TO THE +1 MARKER WHEN SUCTION IS RESUMED. VERY SCANT FLOAT BALL OSCILLATION NOTED. MD ALREADY AWARE, WILL CONTINUE TO MONITOR. CALL LIGHT IN REACH.
--- NOTE | 2021-02-01 01:17 | NUR ---
SEROUS LEAKING NOTED TO CHEST TUBE DRESSING, DRESSING CHANGED PER MD ORDERS WITH HELP FROM VANDANA MARKHAM. pt TOLERATED WELL, REMAINED ON 4LNC. CPOX IN PLACE. SKIN FIRST CLEANED WITH CHLORAPREP, NEW DRESSING IN PLACE. NO BUBBLING NOTED TO AIR LEAK MONITOR, NO AIR LEAK DETECTED AT THIS TIME. PRIOR TO DRESSING CHANGE FLOAT BALL LOCATED AT THE 0 CM MARKER, NO FLOAT BALL OSCILLATION NOTED. MD ALREADY AWARE. RESPIRATIONS EVEN AND UNLABORED, NO DISTRESS NOTED. NO TRACHEAL DEVIATION NOTED, pt VERBALIZES SHE IS COMFORTABLE AT THIS TIME AND DENIES NEEDS. FLOAT BALL CURRENTLY AT THE 12 MARKER WITH NO OSCILLATION NOTED, WILL MONITOR. SUCTION BELLOW REMAINS AT THE TRIANGLE MARKER AND CHEST TUBE MACHINE BELOW INSERTION SITE. NO FURTHER NEEDS, CALL LIGHT IN REACH.
--- NOTE | 2021-02-01 01:49 | NUR ---
CALL LIGHT ANSWERED. SBA TO BSC. PT HAD SMALL LOOSE BM MIXED WITH URINE IN HAT. PT RETURNED TO BED, CALL LIGHT WITHIN REACH. NO FURTHER NEEDS AT THIS TIME.
--- NOTE | 2021-02-01 03:00 | NUR ---
pt RESTING IN BED, AWAKE. SODA PROVIDED PER pt REQUEST. CPOX IN PLACE, 4LNC REMAIN, RR EVEN AND UNLABORED. NO DISTRESS NOTED. NO BUBBLING TO CHEST TUBE, INDICATING NO AIR LEAK AT THIS TIME. WILL CONITNUE TO MONITOR. CALL LIGHT IN REACH.
--- NOTE | 2021-02-01 03:48 | NUR ---
CALL LIGHT ANSWERED, pt UP TO VOID SBA TO BSC AND BACK TO BED. pt TOLERATED WELL, CPOX IN PLACE. SPO2 AND HR REMAINED WNL DURING AMBULATION, ASSESSMENT COMPLETE. MAURI SOUNDS CLEAR WITH SCATTERED WHEEZING. NO DISTRESS NOTED, pt DENIES PAIN AND NAUSEA. DRESSING INTACT, NO LEAKING NOTED. NO BUBBLING NOTED IN AIR LEAK MONITOR, FLOAT BALL AT 5-CMH20 MARKER, NO OSCILLATION NOTED AT THIS TIME, MD ALREADY AWARE. CHEST TUBE TO WALL SUCTION, APROX 80MMHG. WILL CONTINUE TO MONITOR. CHEST DRAIN REMAINS BELOW INSERTION SITE AND NO KINKS IN TUBING NOTED. OUTPUT REMAINS SEROUS IN COLOR. WATER FILL LINE REMAINS AT 2CM LINE. NO FURTHER NEEDS, CALL LIGHT IN REACH.
--- NOTE | 2021-02-01 05:47 | NUR ---
PT CALLED FOR A WARM BLANKET, SHE DENIES FURTHER NEEDS AT THIS TIME. CALL LIGHT IS CLOSE.
--- NOTE | 2021-02-01 06:17 | NUR ---
SCHEDULED THYROID MED GIVEN, SEE EMAR. NO FURTHER NEEDS AT THIS TIME. CALL LIGHT IN REACH.
--- NOTE | 2021-02-01 06:58 | NUR ---
IN TO ASSIST PT OFF BSC, PT BACK INB BED AT THIS TIME, NO FURTHER NEEDS
--- NOTE | 2021-02-01 07:20 | NUR ---
CHEST TUBE DRESSING LEAKING SEROUS FLUID, DR FELIPE AT NURSE'S STATION AND MADE AWARE. DR FELIPE AND DAYSHIFT VANDANA BECKMAN IN ROOM AND ADJUSTING CHEST TUBE PLACEMENT AND REDRESSING CHEST TUBE. VANDANA BECKMAN TO RESUME CARE OF pt AT THIS TIME.
--- NOTE | 2021-02-01 07:49 | NUR ---
THIS RN TO ROOM FOR MORNING REPORT, REPORT RECEIVED FROM VANDANA FORBES. CHEST TUBE FLOAT BALL PRESENT AT 6CM WITH NO FLUCTUATION NOTED, MD AWARE. WALL SUCTION SET AT 82. DRESSING OVER CHEST TUBE SATURATED. DR. FELIPE TO BEDSIDE TO EXAMINE CHEST TUBE. DR FELIPE REMOVES DRESSING, AND SUTURES TO READJUST CHEST TUBE PER THIS MORNINGS CHEST X-RAY. APPLIES ~8ML LIDOCANE WIHT EPENEPHRINE. CHEST TUBE WITHDRAWN, INCERTION NOW AT 8CM AT SKIN LINE. [address] FELIPE, SILK 2.0. NEW DRESSING, XEROFORM, 4X4 AND OPSITE, APPLIED BY . FLOAT BALL REMAINS AT 6CM WITH WALL SUCTION SET AT 82. SEROUS DRAINAGE NOTED IN CHEST TUBE TUBING. PT TOLERATES PROCEEDURE WELL WITH MINIMAL PAIN. PT CONTINUES TO DECLINE PAIN MEDICATION. PT NOW RESTING ON LEFT SIDE, SITTING UP IN BED WORKING ON [employer] PUZZLES. X-RAY CALLED FOR NEW IMAGING. NO ADDITIONAL REQUESTS OR COMPLAINTS. CALL LIGHT WITHIN REACH. BED RAILS UP.
--- NOTE | 2021-02-01 08:08 | NUR ---
MORNING ASSESSMENT AND MEDICAITON DUE. THIS RN TO BEDSIDE, PT SITTING UP IN BED WATCHING TV. PT REPORTS BREATHING FEELS "ABOUT THE SAME." PT REPORTS DYSPNEA ON EXERTION BUT OTHERWISE DENIES SHORTNESS OF BREATH. PT REMAINS ON 4L O2 BY NC WITH O2 SATURATION OF 94% AND HEART RATE OF 86. LUNG SOUNDS SHOW INPRIATORY AND EXPIRATORY WHEEZES THROUGHOUT WELL. CHEST TUBE DRESSING REMAINS C/D/I AT THIS TIME. CHEST TUBE FLOAT BALL RESTING AT 6CM WITH MINIMAL TO NO FLUCUTUATIONS. NO BUBBLING NOTED IN WATER SEAL CHAMBER INDICATING NO AIR LEAK IS PRESENT. CHEST TUBE UNIT IS PLACED BELOW PTS CHEST ON FLOOR AT END OF BED, KICK STAND AND HANGERS USED TO SUPPORT TUBE. SERIOUS DRAINANGE NOTED IN CHEST TUBE. 0ML NEW DRAINAGE NOTED IN CANISTER SINCE NIGHT SHIFTS LAST RECORDING. WALL SUCTION SET TO 82 WITH FLOAT BALL RESTING AT 6 INDICATING TOATAL PATIENT PRESSURE OF 76MM/HG. WATER IN WATER SEAL CHAMBER REMAINS FILLED TO THE 2CM LINE. IV REMAINS SALINE LOCKED, NO S/S PHELBITIS NOTED. ALCOHOL CAP APPLIED. GENERALIZED WEAKNESS REMAINS. PT DECLINES TIME UP TO THE CHAIR AT THIS TIME STATING "MAYBE LATER." PT ASKS RT TO RETURN "IN A FEW MINUTES" SO SHE CAN FINISH EATING BREAKFAST PRIOR TO BREATHING TREATEMENT. PT DENIES ADDITIONAL REQUESTS OR COMPLAINTS. PT CONTINUES TO DECLINE PAIN MEDICAITON AND NICOTENE PATCH. EDUCATION DONE WITH PT REGARDING WHAT A HYDROPNEUMOTHROAX IS AND HOW IT HEALS. EDUCATION DONE REGARDING MEDICATIONS. PT VERBALIZES UNDERSTANDING. NO ADDITIONAL REQUESTS OR COMPLAINTS. CALL LIGHT WITHIN REACH. BED RAILS UP.
--- NOTE | 2021-02-01 09:07 | NUR ---
PT AWAKE IN ROOM. PT WAS SBA TO THE BSC THIS AM. PT NOW UP IN CHAIR DOING [employer]OS[employer] PUZZLES. CALL LIGHT WITHIN REACH, NO FURTHER NEEDS AT THIS TIME.
--- NOTE | 2021-02-01 10:42 | NUR ---
THIS RN TO ROOM TO CHECK ON PT. STAND BY ASSIST UP TO CHAIR. CHEST TUBE REMAINS WNL WITH FLOAT BALL RESTING AT 6CM. WALL SUCTION REMAINS IN PLACE AT 82MM/HG. PT DENIES PAIN "EXCEPT WHEN I COUGH." PT DENIES NAUSEA. LUNCH ORDER PLACED FOR PT. NO ADDITIONAL REQUESTS OR COMPLAINTS. PT VISITING WITH FRIEND. CALL LIGHT WITHIN REACH.
--- NOTE | 2021-02-01 12:24 | NUR ---
THIS RN TO ROOM TO CHECK ON PT. PT UP TO CHAIR VISITING WITH FRIEND. CHEST TUBE DRESSING SATURATED WITH SERIOUS FLUID AND LEAKING. DRESSING CHANGED PER MD ORDER. OLD DRESSING REMOVED. NEW XEROFORM PETROLIUM GAUZE, 4X4 GAUZE AND OPSITE APPLIED. PT TOLERATED DRESSING CHANGE WELL. CHEST TUBE CANISTER POSITIONED BELOW PTS CHEST ON FLOOR AT FOOT OF CHAIR. WATER NO LONGER FILLED TO THE 2CM LINE IN WATER SEAL CHAMBER. 5ML STERILE WATER ADDED USING AN 18 GAUGE NEEDLE THROUGH PORT AT BACK OF CANISTER. NOW FILLED EXACTLY TO 2CM LINE. NO BUBBLES NOTED IN WATER SEAL CHAMBER. FLOAT BALL STEADY AT 6CM ANNETTE, NO FLUCUATIONS NOTED. WALL SUCTION REMAINS AT 82 FOR TOTAL PT PRESSURE OF 76. MINIMAL SERIOUS FLUID NOTED IN CHEST TUBE TUBING. O2 SATURATION AT 96% ON 4L O2 BY NC. RASHMI RT TO BEDSIDE FOR BREATHING TREATMENT. PT REAMINS UP TO CHAIR FOR BREATHING TREATEMENT. CALL LIGHT WITHIN REACH. NO ADDITIONAL REQUESTS OR COMPLAINTS.
--- NOTE | 2021-02-01 13:13 | NUR ---
AFTERNOON ASSESSMENT DUE. PT CALL LIGHT ON. PT REQUESTS ASSISTANCE UP TO RESTROOM. STAND BY ASSIST UP TO BED SIDE PAULE, 1 PERSON FOR TUBE MANAGEMENT. DYSPNEA ON EXERTION PRESENT AND O2 SATURATION DROPS TO 88% ON 4l O2 BY NC WITH ACTIVITY. PT VOIDS 200ML CLEAR YELLOW URINE. STAND BY ASSIST BACK TO BED. PT DENIES PAIN "EXCEPT WHEN I COUGH" AND CONTINUES TO DECLINE PAIN MEDICATION. IV ASSESSED, WNL. NO S/S OF PHELBITIS NOTED. PT DENIES PAIN AT SITE. IV REMAINS SALINE LOCKED WITH ALCOHOL CAP IN PLACE. LUNG SOUNDS IMPROVIED THIS AFTERNOON. EXPIRATORY WHEEZES NOTED ON RIGHT SIDE AND LLL. BRIDGETTE CLEAR TO ASCULTATION. COUGH INCREASING WITH ACTIVITY. CHEST TUBE DRESSING 50% SATURATED WITH SEROUS DRAINAGE, WILL CONTINUE TO MONITOR. CHEST TUBE WNL. NO BUBBLING NOTED IN WATER SEAL CHAMBER, CHEST TUBE UNIT PLACED AT FOOT OF BED ON FLOOR WITH KICK STAND AND HANGERS IN PLACE: BELOW PTS CHEST. 40ML SEROUS DRAINAGE NOTED SINCE THIS MORNING IN CHEST TUBE CANSITER. FLOAT BALL STEADY AT 3CM WITH WALL SUCTION SET AT 82 FOR TOTAL PT PRESSURE OF 79. NO FLUCUATION OF FLOAT BALL NOTED, MD AWARE. DENNYS INFLATED TO DELTA SIGN. SUCTION PRESSURE DIET REMAINS TO -20CM. WITH REST OXYGEN SATURATION OF 94% ON 4L O2 BY NC. PT RESTING IN BED WITH HEAD OF BED ELEVATED TO 42 DEGREES. PT DEMONSTRATES USE OF I.S. X5 REACHING 500ML. PT DENIES ADDITIONAL REQUESTS OR COMPLAINTS. CALL LIGHT WITHIN REACH. BED RAILS UP. PTS FRIEND AT BEDSIDE.
--- NOTE | 2021-02-01 14:30 | NUR ---
MD UPDATED BY TELEPHONE ON PTS CONDITION, CHEST TUBE STATUS, AND DRESSING CHANGES. NO NEW ORDERS AT THIS TIME.
--- NOTE | 2021-02-01 14:44 | NUR ---
PT AWAKE IN ROOM VISITING WITH FAMILY. CALL LIGHT WITHIN REACH. NO FURTHER NEEDS AT THIS TIME.
--- NOTE | 2021-02-01 16:00 | NUR ---
THIS RN TO ROOM TO CHECK ON PT. PT RESTING IN BED. CHEST TUBE FLOAT BALL DOWN BELOW +2 NEAR WATER SEAL CHAMBER. SUCTION TURNED OFF AND FLOAT BALL RISES TO 2CM. SUCTION REAPPLED AND FLOAT BALL DROPS TO +2 CM. PT ASKED TO COUGH AND USE I.S. FLOAT BALL RISES TO 0CM ANNETTE AND REMAINS THERE. PT CONDITION UNCHANGED. PT REPORTS SOB REMAINS THE SAME. LUNG SOUNDS PRESENT IN ALL [place] WITH EXPIRATORY WHEEZES NOTED. NO INCREASED WORK OF BREATHING NOTED. O2 SATURATION REMAINS ABOVE 90% ON 4L O2 BY NC. CHEST TUBE DRESSING SATURATED ONCE AGAIN. NOT YET LEAKING. PT ASKED THAT DRESSING BE CHANGED AFTER HER BREATHIGN TREATEMENT. RT TO BEDSIDE FOR BREATHING TREATMENT. WILL CHANGE DRESSING ONCE BREATHING TREATEMENT IS COMPLETED. NO ADDITIONAL REQUESTS OR COMPLAINTS. CALL LIGHT WITHIN REACH. BED RAILS UP.
--- NOTE | 2021-02-01 17:03 | NUR ---
PT HERE FOR HYDROPNEUMOTHORAX. PT UP TO CHAIR FOR MEALS AND IN ROOM THIS SIFT WITH STAND BY ASSIST FOR TUBE MANAGMENT. pT TOELRATIN GREGULAR DIET WITH GOOD APPITITE. 20G IV REMAINS IN RIGHT WRIST, WNL, NO S/S OF PHELBITIS NOTED, SALIEN LCOKED. pT REMAINS ON 4L O2 BY NC WITH OXYGEN SATURATIONS FROM 90-96%, PT CONTINUES TO DESATURATE WITH ACTIVITIES. CHEST TUBE READJUSTED BY THIS SHIFT, WITHDRAWN TO 8CM AT INCERTION SITE, AND RESUTURED. DRESSING CHANGES X2 THIS SHIFT DRESSING CONTINUES TO SATURATE. CHEST TUBE TO WALL SUCTION, OUTPUT OF SEROUS FLUID DECREASED THIS SHIFT. PT CONTINUES TO HAVE DYSPNEA ON EXERTION, OTHERWISE BREATHING WITH STEADY RATE AND RHYTHEM. I.S. USE ENSURED, PT REACHES ~500ML WITH USE. pT CONTINUES TO REPORT PAIN ONLY WITH COUGH. PT DECLINES PAIN MEDICATIONS. PT VOIDING QUANTITY SUFFICIENT. PT USES CALL LIGHT APPROPRIATLY AND MAKES NEEDS KNOWN.
--- NOTE | 2021-02-01 17:14 | NUR ---
PT AWAKE AFTER RT TREATEMENT AND NAP. CHEST TUBE DRESSING CHANGED PER MD ORDER WITH XEROFORM, 4X4 GAUZE AND OPSITE APPLIED. PT TOELRATED DRESSING CHANGE WELL. CHEST TUBE FLOAT BALL AT 1CM WITH WALL SUCTION SET AT 82 FOR TOTAL PT PRESSURE OF 81. NO BUBBLING NOTED IN WATER SEAL CHAMBER. CHEST TUBE REMAINS AT FOOT OF BED BELOW PTS CHEST. 40ML ADDITIONAL SEROUS FLUID NOTED IN CANISTER SINCE 1300 THIS AFTERNOON. SUCTION PRESSURE ON CANISTER SET AT -20CM. PT SITTING UP IN BED WITH HEAD OF BED ELEVATED TO 50 DEGREES FOR DINNER. PT DECLINES GETTING UP TO CHAIR STATING "I'M TOO TIRED." OXYGEN SATURATION AT 93% WITH HEART RATE OF 91. PT DENIES PAIN AND [place]UEA AT THIS TIME. NO ADDITIONAL REQUESTS OR COMPLAINTS. CALL LIGHT WITHIN REACH. BED RAILS UP.
--- NOTE | 2021-02-01 18:02 | NUR ---
PT AWAKE IN ROOM. PT IS INDEPENDENT WITH USE OF BSC. PT IN BED WATCHING TV. CALL LIGHT WITHIN REACH. NO FURTHER NEEDS AT THIS TIME.
--- NOTE | 2021-02-01 18:23 | NUR ---
THIS RN TO ROOM TO CHECK ON PT. PT WATCHING TV AND PLAYING ON PHONE. PT STATES "I'M PRETTY COMFORTABLE RIGHT NOW." RR = 18. O2 SATURATION AT 9% ON 2L O2 BY NC. CHEST TUBE REMAINS WNL WITH FLOAT BALL AT THE +1 ANNETTE AND WALL SUCTION SET TO 81. NO BUBBLING NOTED IN WATER SEAL CHAMBER. DRESSING 20% SATURATED, OTHERWISE INTACT. CHEST TUBE CANISTER AT FOOT OF BED BELOW PTS CHEST. SUCTION PRESSURE ON CANISTER REMAINS SET TO -20. PT DENIES PAIN. NO ADDITIONAL REQUESTS OR COMPALINTS. CALL LIGHT WITHIN REACH. BED RAILS UP.
--- NOTE | 2021-02-01 19:25 | NUR ---
SHIFT REPORT RECEIVED FROM [facility] VANDANA BECKMAN AT BEDSIDE. pt AWAKE AND RESTING IN BED, RR EVEN AND UNLABORED. NO DISTRESS NOTED, CPOX IN PLACE WITH 4LNC. SPO2 SAT MID 90'S, HR WNL. CHEST TUBE TO WALL SUCTION, FLOAT BALL AT THE +2 MARKER. NO BUBBLING NOTED IN AIR LEAK MONITOR. NO OSCILLATION OF FLOAT BALL DETECTED. TO CHECK CHEST CATHETER PATENCY, SUCTION WAS BRIEFLY TURNED OFF AND FLOAT BALL ALEKS TO THE 10 -CMH2O MARKER AND OSCILLATION WAS NOTED. SUCTION RESUMED AND FLOAT BALL RETURNED TO +2 NEAR THE BOTTOM OF THE AIR LEAK MONITOR. NO FURTHER NEEDS, CALL LIGHT IN REACH.
--- NOTE | 2021-02-01 21:43 | NUR ---
ASSESSMENT COMPLETE, NO SCHEDULED MEDS. pt A/OX4, DENIES PAIN, SOB, AND DYSPNEA. LUNG SOUNDS CLEAR/DIMINISHED OVERALL WITH SOME SCANT WHEEZING IN LEFT LOBES. NO DISTRESS NOTED, RR EVEN AND UNLABORED. pt APPEARS RELAXED AND IS WORKING ON PUZZLE IN BED. CPOX IN PLACE, 4LNC. NO TRACHIAL DEVIATION NOTED, RIGHT CHEST TUBE DRESSING DRY AND INTACT, NO LEAKING NOTED. OUTPUT REMAINS SEROUS IN COLOR. NO BUBBLING FROM RIGHT TO LEFT NOTED IN AIR LEAK MONITOR, FLOAT BALL AT THE 3 MARKER, NO OSCILLATION NOTED. WHEN SUCTION IS TURNED OFF BREIFLY, FLOAT BALL RISES TO THE 10 MARKER AND OSCILLATION IS NOTED AT THIS TIME WITH RESPIRATIONS. SUCTION RESUMED AND BALL RETURNS TO ORIGINAL 3 MARKER. NO KINKS IN TUBING NOTED AND MACHINE REMAINS BELOW LEVEL OF INSERTION. WILL CONTINUE TO MONITOR. CALL LIGHT IN REACH.
--- NOTE | 2021-02-02 00:26 | NUR ---
CALL LIGHT ANSWERED, pt REQUESTING WARM BLANKETS. BLANKETS PROVIDED. DRESSING REMAINS INTACT, CHEST TUBE TO WALL SUCTION. WALL SUCTION CURRENTLY AT 83MMHG, SEROUS OUTPUT IN CHEST TUBING. FLOAT BALL AT THE +1 TO ZERO MARKER WITH NO OSCILLATION. 4LNC IN PLACE, SPO2 MID 90'S, HR 80'S. pt DENIES CONCERNS, APPEARS RELAXED AND COMFORTABLE. CALL LIGHT IN REACH. RR EVEN AND UNLABORED, NO DISTRESS NOTED.
--- NOTE | 2021-02-02 01:43 | NUR ---
pt RECENTLY UP TO VOID WITH HELP FROM PIECE DYE WORKER. pt HEARD COUGHING FROM RN STATION, THIS RN IN ROOM TO ASSESS. pt REPORTS INCREASED BURNING PAIN THAT "COMES AND GOES" NEAR CHEST TUBE INSERTION SITE. TUBE RECENTLY ADJUSTED BY MD EARLIER ON HI, NO SIGNS OF AIR LEAK NOTED ON CHEST DRAIN. NO LEAKING DETECTED FROM DRESSING, PAIN MEDICATION OFFERED. pt CONTINUES TO DECLINE. NO DISTRESS NOTED, pt WORKING ON PUZZLE IN BED. WILL CONTINUE TO MONITOR. CALL LIGHT IN REACH.
--- NOTE | 2021-02-02 03:40 | NUR ---
pt REPORTS THAT BURNING PAIN R/T CHEST TUBE HAS RESOLVED. NO CHANGE TO DRESSING APPEARANCE, NO LEAKING NOTED AT THIS TIME. CHEST TUBE REMAINS AT WALL SUCTION, SET TO 83MMHG, SEROUS OUTPUT IN TUBE NOTED. FLOAT BALL AT THE +1 TO ZERO MARKER, NO OSCILLATION NOTED. NO NEEDS VERBALIZED AT THIS TIME, CALL LIGHT IN REACH.
--- NOTE | 2021-02-02 05:34 | NUR ---
VSS, 4LNC IN PLACE. SPO2 MID 90'S, HR MID TO UPPER 90'S. CHEST TUBE DRESSING SATURATED AND LEAKING, DRESSING CHANGE COMPLETE PER MD ORDERS. SITE CLEANED WITH CHLORAPREP, SUTURES REMAIN INTACT, SKIN MILDLY RED AROUND INSERTION SITE, WILL MONITOR FOR CHANGES. XEROFROM GAUZE, 4X4, AND OPSITES X2 IN PLACE. pt TOLERATED WELL. FLOAT BALL AT THE 4-5 MARKER, NO OSCILLATION NOTED. NO BUBBLING OR SIGNS OF AIR LEAKING AT THIS TIME. DRAIN REMAINS BELOW INSERTION SITE AND IS SITTING FLAT ON FLOOR AND SECURED WITH HANGING HOOK. NO FURTHER NEEDS, CALL LIGHT IN REACH. THYROID MEDICATION GIVEN, SEE EMAR.
--- NOTE | 2021-02-02 07:25 | NUR ---
REPORT RECEIVED FROM NIGHTSHIFT RN, PT SITTING UP IN BED AWAKE AND ALERT AND HAD JUST FINISHED GETTING A CHEST X-RAY. CHEST TUBE IN PLACE AND ON SUCTION. SITE IS C/D/I, PT REPORTS NO NEEDS AT THIS TIME, WILL CONTINUE PLAN OF CARE.
--- NOTE | 2021-02-02 07:54 | NUR ---
PT AWAKE IN ROOM. PT AMBULATED TO BSC INDEPENDENTLY. PT NOW UP IN CHAIR DOING CROSSWORD PUZZLES. WARM CLOTH GIVEN FOR FACE. WHITE BOARD UPDATED, CALL LIGHT WITHIN REACH. LINEN CHANGED. NO FURTHER NEEDS AT THIS TIME.
--- NOTE | 2021-02-02 09:00 | NUR ---
THIS RN IN TO ADMINISTER SCHEDULED MEDICATIONS AND ASSESS PT. PT SITTING IN BEDSIDE RECLINER AT THIS TIME AND DENIES HAVING ANY PAIN WHEN ASKED. SCHEDULED MEDICATIONS ADMINISTERED, PT REFUSED THE NICOTINE PATCH (SEE MAR). PT ASSESSED AT THIS TIME, CHEST TUBE IN PLACE AND CONNECTED TO WALL AND DRAINING. DRESSING C/D/I. PT GIVEN WATER REQUESTED AND ASSISTED TO THE BEDSIDE COMMODE SHE NEEDED TO USE IT. PT STATES SHE WILL USE THE CALL LIGHT ONCE SHE IS FINISHED. CALL LIGHT LEFT WITHIN REACH, PT REPORTS NO FURTHER NEEDS AT THIS TIME, WILL CONTINUE PLAN OF CARE.
--- NOTE | 2021-02-02 09:20 | NUR ---
THIS RN BACK IN ROOM TO CHECK ON PT. PT NOW BACK IN BEDSIDE RECLINER. PT DENIES PAIN AT THIS TIME AND REPORTS NO FURTHER NEEDS. CALL LIGHT IN REACH, BED IN LOWEST POSITION, PT ON 4L O2 SPO2 93%, WILL CONTINUE PLAN OF CARE.
--- NOTE | 2021-02-02 10:17 | NUR ---
RESPONDED TO PT CALL LIGHT. PT SITTING IN BEDSIDE RECLINER AWAKE AND ALERT. PT STATED SHE WANTED HER BLINDS PUT UP AND BEDSIDE TABLE OVER HER. PT REPORTED NO FURTHER NEEDS WHEN ASKED AFTERWARDS, WILL CONTINUE PLAN OF CARE. CALL LIGHT IN REACH.
--- NOTE | 2021-02-02 10:34 | NUR ---
PT AWAKE IN CHAIR PLAYING ON PHONE. CALL LIGHT WITHIN REACH. NO FURTHER NEEDS AT THIS TIME.
--- NOTE | 2021-02-02 11:09 | NUR ---
THIS RN IN TO CHECK ON PT. PT SLEEPING IN RECLINER AT THIS TIME AND WOKE EASILY LUNCH ORDER TAKEN FOR PT AT THIS TIME. PT REPORTS NO FURTHER NEEDS, WILL CONTINUE PLAN OF CARE. CALL LIGHT WITHIN REACH.
--- NOTE | 2021-02-02 11:50 | NUR ---
THIS RN IN TO CHECK ON PT. PT SITTING AT BEDSIDE RECLINER. PT TAKEN OFF OF WALL SUCTION AT THIS TIME FOR CHEST TUBE AND NOW ON WATER SEAL. PT INFORMED ON INFORMING THIS RN IF SHE DEVELOPS RESPIRATORY DISTRESS/DIFFICULTY. PT CHEST TUBE NOW ON WATER SEAL, WATER PROVIDED TO PT, PT HELPED IN REPOSITIONING ON RECLINER. PT REPORTS NO FURTHER NEEDS AT THIS TIME, R.T NOW IN ROOM TO DO A SCHEDULED NEB TREATMENT, WILL CONTINUE PLAN OF CARE. CALL LIGHT WITHIN REACH.
--- NOTE | 2021-02-02 12:17 | NUR ---
THIS RN IN TO BRING PT HER LUNCH. PT SITTING AT RECLINER AWAKE AND ALERT. PT NOW EATING LUNCH AT THIS TIME AND REPORTS NO FURTHER NEEDS WHEN ASKED. CALL LIGHT WITHIN REACH, PT ON 4L NC, WILL CONTINUE PLAN OF CARE.
--- NOTE | 2021-02-02 14:18 | NUR ---
THIS RN TO ROOM TO ASSIST WITH DRESSING CHANGE PER PTS RN REQUEST. DRESSING 100% SATURATED WITH SEROUS FLUID AND LEAKING ON PTS SHEETS AND CLOTHING. DRESSING REMOVED. NEW XEROFORM, 4X4 GAUZE, AND OPSITE APPLIED. CHEST TUBE REMAINS WNL, TO GRAVITY DRAIN AT THIS TIME, NO SUCTION IN PLACE. FLOAT BALL ALL THE WAY TO THE TOP OF THE CANISTER. WATER SEAL CHAMBER SHOWS NO BUBBLING, FILLED TO THE 2CM LINE PER PACKAGE INSERT INSTRUCTIONS. CHEST TUBE UNIT ON THE FLOOR AT THE FOOT OF THE BED SUPPORTED BY KICK STAND AND SECURMENT HOOKS, BELOW PTS CHEST LEVEL. PT TOLERATED DRESSING CHANGE WITH MINIMAL PAIN. PT BACK TO BED. WARM BLANKETS PROVIDED. GOWN CHANGED. PT DENIES ADDITIONAL REQUESTS OR COMPLAINTS AT THIS TIME. CALL LIGHT WITHIN REACH. BED RAILS UP. NO ADDITIONAL REQUESTS OR COMPLAINTS. BED RAILS UP.
--- NOTE | 2021-02-02 14:20 | NUR ---
RN RK FINISHED WITH DRESSING CHANGE AT THIS TIME. WARM BLANKET PROVIDED TO PT PER HER REQUEST. PT REPORTS NO FURTHER NEEDS WHEN ASKED AT THIS TIME, WILL CONTINUE PLAN OF CARE. PT ON 4L O2, SPO2 IN 90'S, CHEST TUBE WATER SEALED AND DRAINING, CALL LIGHT WITHIN REACH.
--- NOTE | 2021-02-02 16:33 | NUR ---
THIS RN IN TO ASSESS PT. PT SITTING UP IN BED AT THIS TIME AWAKE AND ALERT AND DENIES THE NEED FOR PAIN MEDICATION. WHEEZES HEARD THROUGHOUT LUNGS, PT DENIES SOB AT THIS TIME AND IS ON 4L O2 NC, SPO2 94%. CHEST TUBE SITE ON RIGHT SIDE ASSESSED AT THIS TIME. DRESSING IS SATURATED WITH SEROUS FLUIDS AT THIS TIME, WILL CHANGE DRESSING. CHEST TUBE BENEATH LEVEL OF CHEST AT FLOOR AND IS WATER SEALED. NO BUBBLING NOTED WHEN OBSERVING WATER SEAL. DRESSING CHANGED AT THIS TIME, CHEST TUBE SITE IS WNL AND NOW C/D/I. NEW PETROLEUM GAUZE, 4X4 GAUZE, AND OPSITE PLACED OVER CHEST TUBE SITE. IT WAS NOTED THAT PT HAS NOT HAD SIGNIFICANT DRAINIAGE AND IS STILL AT 1210 ML SINCE. PT UP TO VOID AFTER DRESSING CHANGE AND LINENS CHANGED AT THIS TIME. PT DENIES THE NEED FOR PAIN MEDICATION STILL WHEN ASKED. PT NOW BACK IN BED SITTING UP AWAKE AND ALERT. PT ON 4L O2 NC SPO2 AT 96%, PT DENIES SHORTNESS OF BREATH OR ANY TYPE OF RESPIRATORY DISTRESS. PT REPORTS NO FURTHER NEEDS WHEN ASKED, WILL CONTINUE PLAN OF CARE. CALL LIGHT IN REACH, BED IN LOWEST POSITION.
--- NOTE | 2021-02-02 16:50 | NUR ---
DR. FELIPE UPDATED ON PT AT THIS TIME REGARDING CHEST TUBE, DRAINIAGE, DRESSING CHANGES, AND PT'S RESPIRATORY STATUS. WILL CONTINUE PLAN OF CARE.
--- NOTE | 2021-02-02 17:11 | NUR ---
DINNER BROUGHT TO PT AT THIS TIME, PT AWAKE AND ALERT LAYING IN BED. PT REPORTS NO NEEDS AT THIS TIME, WILL CONTINUE PLAN OF CARE.
--- NOTE | 2021-02-02 17:13 | NUR ---
PT HAS BEEN ALERT AND ORIENTED ON 4L O2 NC, SPO2 MAINTAINING AT 93-96%. CHEST TUBE TAKEN OFF WALL SUCTION AND NOW WATER SEALED PER DR. FELIPE. PT HAS HAD 2 DRESSING CHANGES DUE TO LEAKAGE AND SATURATION OF DRESSING WITH SEROUS FLUIDS. PT HAS DECLINED PAIN MEDICATIONS STATING HER PAIN IS TOLERABLE. PT STILL SBA AND USES THE BEDSIDE COMMODE. PT NOW HAS ORDERS FOR ACTIVITY AND IS ALLOWED TO WALK WITH STAND BY ASSISTANCE. MINIMAL TO NO DRAINAGE NOTED IN CHEST DRAIN. DR. FELIPE INFORMED OF PTS SPO2, LACK OF CHEST DRAINAGE, AND NUMBER OF DRESSING CHANGES. PT USING CLAL LIGHT APPROPRIATELY STILL AND REPORTING NEEDS.
--- NOTE | 2021-02-02 18:10 | NUR ---
THIS RN IN TO CHECK ON PT. PT LAYING IN BED AWAKE AND ALERT. PT STATED SHE NEEDED TO USE THE BSC, PT ABLE TO GET UP WITH NO ASSISTANCE, VOID ON BSC, AND GET BACK INTO BED. PT REPORTS BEING FINISHED WITH DINNER AT THIS TIME. IV ASSESSED AT THIS TIME, IV NO LONGER PATENT AND LEAKING. THIS RN ATTEMPTED TO PLACE AN IV 2X ON RIGHT SIDE. RN STEPHY NOW IN TO PLACE AN IV. CHEST TUBE DRESSING IS NOT LEAKING, SITE IS C/D/I. WATER SEAL STILL IN PLACE, ONLY 10ML OF DRAINAGE NOTED THROUGHOUT THE DAY. PT REPORTS NO FURTHER NEEDS AT THIS TIME AND DENIES SOB. PT ON 3.5L O2 NC, SPO2 AT 96%. WILL CONTINUE PLAN OF CARE.
--- NOTE | 2021-02-02 18:24 | NUR ---
IV PLACED BY VANDANA KEYES IN RIGHT FOREARM, IV DC'D FROM R WRIST BY VANDANA KEYES. WILL CONTINUE PLAN OF CARE.
--- NOTE | 2021-02-02 18:30 | NUR ---
PATIENT IN BED WATCHING TV. RN IN ROOM AT THIS TIME. VITALS AND I&O'S CHARTED. CALL LIGHT IN REACH. NO FURTHER NEEDS AT THIS TIME.
--- NOTE | 2021-02-02 19:15 | NUR ---
SHIFT REPORT RECEIVED FROM RAMESH LEON AT BEDSIDE. pt AWAKE AND WORKING ON PUZZLE IN BED. RT SESAR PREPARING TO GIVE SCHEDULED BREATHING TREATMENT, CPOX IN PLACE WITH 3.5-4LNC. SPO2 95%, HR 83. NO TRACHIAL DEVIATION NOTED, RR EVEN AND UNLABORED. NO DISTRESS NOTED, pt DENIES SOB OR DYSPNEA AT THIS TIME. DRESSING INTACT, NO LEAKING NOTED. CHEST TUBE DRAIN BELOW INSERTION SITE, CHEST TUBE TO WATER SEAL. FLOAT BALL NEAR THE 17 MARKER BELOW THE WATER SEAL CHAMBER. NO OSCILLATION NOTED. PER REPORT, WATER WAS BELOW THE 2CM FILL LINE, WATER WAS RECENTLY ADDED BY RAMESH BUT THE WATER WENT UP TOWARDS THE WATER SEAL CHAMBER. WATER CURRENTLY BELOW THE 2CM LINE. pt APPEARS RELAXED AND DENIES NEEDS OR CONCERNS. CALL LIGHT IN REACH. WILL CONTINUE TO MONITOR CHEST TUBE AND pt APPEARANCE.
--- NOTE | 2021-02-02 20:00 | NUR ---
PATIENT CALLED. ICE WATER AND ICE CHIPS PROVIDED.
--- NOTE | 2021-02-02 21:35 | NUR ---
INFORMED BY MICHAELA ANG pt BEGAN REPORTING INCREASED SOB BEFORE GETTING OOB TO VOID. THIS RN IN ROOM TO ASSESS. pt FOUND IN BED, STATING, "I CAN'T BREATH". CHEST TUBE PROMPTLY SWITCHED TO WALL SUCTION. VS FOLLOWED: 125/60 (77), HR 107-120'S. 91% ON 4LNC, RR 32. NO CHANGE TO LUNG SOUNDS, SCATTERED WHEEZES NOTED. O2 TITRATED FROM 4LNC TO 6LNC. STAT CHEST X-RAY ORDERED AND COMPLETED. AFTER LESS THAN 5 MINUTES, HR AND SPO2 BOTH IMPROVED. HR NOW 98, SPO2 95% ON 6LNC. pt APPEARING MORE RELAXED AND STATES, "OH I FEEL SO MUCH BETTER. THAT SCARED THE SHIT OUT OF ME". pt NOW ASKING FOR ICE CREAM, SNACK PROVIDED. CHEST TUBE DRESSING SATURATED AND LEAKING SEROUS FLUIDS. DR FELIPE MADE AWARE OF ALL INFORMATION WELL INFORMATION NOTED IN SHIFT REPORT NOTE REGARDING CHEST TUBE DRAIN. PER MD, CHANGE CHEST DRESSING PER ORDERS AND CHANGE OUT CHEST TUBE DRAIN. MD SUSPECTS LUNG COLLAPSED AFTER BEING ON WATER SUCTION, OKAY TO LEAVE ON WALL SUCTION. NO NEED TO NOTIFY MD OF IMAGING RESULTS UNLESS RESULTS SHOW DRASTIC CHANGE FROM PREVIOUS IMAGING. NO ADDITIONAL ORDERS.
--- NOTE | 2021-02-02 21:50 | NUR ---
IMAGING COMPLETE, RESULTS PENDING. THIS RN AND CATERING ADMINISTRATIVE ASSISTANT THERESA CHANGED CHEST TUBE DRESSING PER MD ORDERS. DRESSING FULLY SATURATED AND LEAKING SEROUS FLUID. SITE CLEANED WITH CHLORAPREP WITH XEROFORM GAUZE, 4X4 GAUZE, AND OPSITES X2 IN PLACE. pt TOLERATED WELL, DENIES NEED FOR PAIN MEDICATIONS. [employer]LECTION DRAIN ALSO CHANGED WITH HELP FROM CATERING ADMINISTRATIVE ASSISTANT BAILEY PER INSTRUCTIONS. CHEST TUBE AND CONNECTION DRAIN TUBING CONNECTED WITH CONNECTION PIECE, SECURED WITH CHEST TUBE TAPE AND ZIPTIES PREVIOUSLY SECURED. CHEST TUBE REMAINS AT WALL SUCTION AT LOW 80'S MMHG. ORANGE BELLOW EXPANDED TO TRIANGLE MARKER AND CHEST DRAIN RESTING ON FLOOR BELOW INSERTION SITE. STERILE FLUID REMAINS FILLED TO THE 2CM MARKER. FLOAT BALL AT THE 5-6 ANNETTE, NO SIGNS OF AIR LEAK DETECTED AT THIS TIME. WILL MONITOR. 6LNC REMAINS IN PLACE, pt ENCOURAGED TO REST AND DEEP BREATH. SPO2 LOW 90'S, HR 90'S TO 105. CALL LIGHT IN REACH.
--- NOTE | 2021-02-02 21:50 | NUR ---
PRIMARY RN NOTIFIES THIS OVERHEAD FOREMAN THAT PATIENT IS SHORT OF BREATH. CHEST TUBE TO WALL SUCTION AT THIS TIME AND STAT CHEST XRAY PLACED PER MD. VS COMPLETE, MD NOTIFIED BY PRIMARY RN. XRAY CALLED, WILL COME SOON POSSIBLE FOR CHEST XRAY.
--- NOTE | 2021-02-02 23:09 | NUR ---
RECENT CHEST X-RAY RESULTS SHOW NO CHANGE TO PREVIOUS CHEST X-RAY. MILD DISABILITIES TEACHER BAILEY MADE AWARE OF FINDINGS.
--- NOTE | 2021-02-02 23:38 | NUR ---
pt RESTING QUIETLY IN BED EYES CLOSED, RR EVEN AND UNLABORED. RR=16-18. SPO2 UPPER 90'S ON 6LNC, TITRATED BACK TO 4LNC BASELINE, SPO2 SUSTAINING IN MID 90'S.HR 80'S. pt UP SBA TO VOID VIA BSC AND BACK TO BED. pt DENIES ADDITIONAL NEEDS, CALL LIGHT IN REACH.
--- NOTE | 2021-02-03 03:03 | NUR ---
CALL LIGHT ANSWERED, pt UP SBA TO VOID VIA BSC. SPO2 DIPPED TO MID TO UPPER 80'S ON 4LNC WHEN AMBULATING, BUT QUICKLY RETURNED TO BASELINE. pt DID NOT REQUIRE ADDITIONAL O2 SUPPORT. CPOX IN PLACE, SPO2 SAT MID 90'S WITH HR 80'S. DRESSING PARTIALLY SATURATED, BUT NOT LEAKING. CHEST TUBE REMAINS TO WALL SUCTION, FLOAT BALL TO 5-6 MARKER, NO OSCILLATION NOTED. SEROUS OUTPUT NOTED. ASSESSMENT COMPLETE, NO NEW CHANGES OR CONCERNS. CALL LIGHT IN REACH.
--- NOTE | 2021-02-03 03:46 | NUR ---
pt HEARD COUGHING FROM RN STATION, RN IN ROOM TO ASSESS. PRN BREATHING TX PROVIDED BY RT SESAR. pt ASSISTED TO CHAIR PER pt REQUEST. 4LNC IN PLACE, SPO2 LOW 90'S, HR WNL. NO FURTHER NEEDS, CALL LIGHT AND PERSONAL BELNGINGS IN REACH.
--- NOTE | 2021-02-03 03:53 | NUR ---
BREATHING TX COMPLETE, pt NOW RESTING IN CHAIR AND ON HER PHONE. NO DISTRESS NOTED, COUGHING APPEARS TO HAVE STOPPED, WILL MONITOR. SPO2 94% ON 4LNC. pt REPORTS EFFORT OF BREATHING IMPROVED. NO FURTHER NEEDS, CALL LIGHT REMAINS IN REACH.
--- NOTE | 2021-02-03 06:12 | NUR ---
SCHEDULED THYROID MED GIVEN, SEE EMAR. CHEST TUBE DRESSING SATURATED AND LEAKING, CHANGED PER MD ORDERS. SITE CLEANED WITH CHLORAPREP AND XEROFORM, 4X4 GAUZE, AND OPSITES X2 IN PLACE, STERILE GLOVES USED TO PLACE NEW DRESSING. pt TOLERATED WELL, 25MLS SEROUS FLUID COLLECTED FROM CHEST TUBE DRAIN THUS FAR. SPO2 MID 90'S ON 4LNC. NO BUBBLING OR SIGNS OF AIR LEAK DETECTED. FLOAT BALL LOCATED AT THE 10 MARKER WITH NO OSCILLATION. ADDITIONAL STERILE SALINE ADDED TO THE AIR LEAK MONITOR TO MEET THE 2CM FILL LINE. BELLOW IS EXPANDED TO THE TRIANGLE MARKER AND MACHINE IS FLAT ON THE FLOOR AND SECURED TO BED. NO KINKS IN LINE. NO FURTHER NEEDS, CALL LIGHT IN REACH.
--- NOTE | 2021-02-03 07:15 | NUR ---
Report received from Jennifer ROSS. Pt resting in bed with eyes closed, awakens to voice. On 4L O2 NC, SPO2 95%. Chest tube visualized with special agent in charge, fund manager and RT, WNL. Dressing C/D/I no drainage noted. Pt has occasional harsh cough that she reports painful. Chest tube to wall suction. No needs identified at this time, will contiue plan of care. Call light in reach.
--- NOTE | 2021-02-03 08:37 | NUR ---
PT AWAKE IN ROOM. PT USED BSC INDEPENDENTLY AND IS NOW UP IN CHAIR WITH CROSSWORD PUZZLES, PHONE, ICE WATER AND TV. CALL LIGHT WITHIN REACH. WHITE BOARD UPDATED. NO FURTHER NEEDS AT THIS TIME.
--- NOTE | 2021-02-03 09:20 | NUR ---
Scheduled medications administered, assessment complete. Pt up in chair, states mild but tolerable discomfort, mostly related to coughing which this RN and MD reassure pt is normal and helpful. Chest tube settings WNL. Dressing C/D/I. Lung sounds wheezy and coarse throughout, on 4L O2 via NC. Pt denies needs at this time, call light in reach.
--- NOTE | 2021-02-03 09:40 | NUR ---
PT stated she, "just wants it all to go away." Stated she did not need anything, but appeared to be in some discomfort, shifting in chair and moaning quietly while touching/holding same location on torso. I informed MICHAELA Gamez who indicated whe would inform VANDANA Cardenas. Prayed with PT, asking for patience and perseverance as well as healing.
--- NOTE | 2021-02-03 10:30 | NUR ---
Spoke with Sherry. States she is feeling somewhat better today. CT was returned to suction. Breathing is less labored. She states she is being shipped to higher level of care and I am aware. Discussed if she would like me to go ahead and speak with [facility] to start process for possible cg in home and she would. 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 We discussed I am sure they can find someone that was not her coworked. Called and spoke with Kayla Rodriguez from [facility] and she states they will assign her a case preparer and liner which she has not worked with. Gave Kayla Powell's number and she will call. Reminded this can take up to 45 days, so to go ahead and make the call today. Understanding stated.
--- NOTE | 2021-02-03 10:58 | NUR ---
PT IS UP IN CHAIR AFTER USING BSC. PT IS DOING CROSSWORD AND WATCHING TV. PT REPORTS NO PAIN AND IS LOOKING FORWARD TO NAPPING. CALL LIGHT WITHIN REACH. NO FURTHER NEEDS AT THIS TIME.
--- NOTE | 2021-02-03 11:30 | NUR ---
Rounded on patient who is resting in chair with no pain or discomfort at this time. Chest tube WNL, dressing C/D/I. Pt requests pepsi from kitchen, this RN orders. No other needs at this time, call light in reach.
--- NOTE | 2021-02-03 13:50 | NUR ---
Rounded on patient who requests to use BSC, this RN assists. Dressing visualized, small amount of serous drainage noted on gauze, dressing change not needed at this time. Chest tube draining WNL. DIE CAST OPERATOR in room to take vitals, pt in stable condition. Reassured about safety of transfer and plan of care. Fresh water provided, call light in reach. at bedside
--- NOTE | 2021-02-03 14:37 | NUR ---
[facility] arrives to transfer pt, thorough report given and all questions answered. Pt in stable condition with VSS, A+O, on 4L O2 with spo2 at 95%. Dressing to chest tube C/D/I, chest tube suction WNL.
--- NOTE | 2021-02-03 14:38 | NUR ---
Pt left per stretcher for transfer to [place].
== END 2021-02-03 14:35 | disposition short-term general hospital (02) | DRG 200 ==
LOC: ED 18:54 → MS 20:54
PROVIDERS: ADMIT Surgery; ATTEND Surgery
PROC: 0W9930Z Drainage of Right Pleural Cavity with Drainage Device, Percutaneous Approach (ICD-10-PCS; principal; 2021-01-29)
PROC: 0W9930Z Drainage of Right Pleural Cavity with Drainage Device, Percutaneous Approach (ICD-10-PCS; 2021-02-03)
DX: J95.811 Postprocedural pneumothorax (principal); N17.9 Acute kidney failure, unspecified; R06.03 Acute respiratory distress; E03.9 Hypothyroidism, unspecified; Z20.822 Contact with and (suspected) exposure to COVID-19; J43.9 Emphysema, unspecified; I10 Essential (primary) hypertension; R91.8 Other nonspecific abnormal finding of lung field; R63.4 Abnormal weight loss; D49.1 Neoplasm of unspecified behavior of respiratory system; E79.0 Hyperuricemia without signs of inflammatory arthritis and tophaceous disease; M10.9 Gout, unspecified; F17.210 Nicotine dependence, cigarettes, uncomplicated; Z98.890 Other specified postprocedural states; Z79.82 Long term (current) use of aspirin; Z79.899 Other long term (current) drug therapy; Z88.5 Allergy status to narcotic agent
CPT/HCPCS: 32551; 71045; 71046; 74178; 80048; 80053; 85025; 93005; 93010; 94640; 94762; 99285-25; C9803; J0690; J1650; J2250; J3010; J7040; J7121; Q9967; U0003

== ENCOUNTER 2021-02-07 17:55 | Emergency (ER) | payer MEDICARE, OTHER ==
[~2021-02-07] VITALS: Ht 147.3 cm; Wt 52.2 kg
--- OUTSIDE RECORDS SUMMARY | 2021-02-07 17:58 | XMS ---
PreManage Notification: JD BRENNAN Security Inspector Subassembly Events No recent Security Events currently on file CRITERIA MET - [facility] - 2 Visits in 30 Days CARE PROVIDERS PAUL KHAN [facility] Current PHONE: [phone] Josiah has no Care Guidelines for this patient. Thais VISIT COUNT (12 MO.) 3 [facility] TOTAL 3 NOTE: Visits indicate total known visits. ED/C VISIT TRACKING (12 MO.) 02/07/2021 17:56 [facility] TYPE: Emergency COMPLAINT: - LOW OXYGEN LEVELS 01/29/2021 18:56 [facility] [place] TYPE: Emergency COMPLAINT: - CHEST PROBLEM 01/25/2021 15:40 [facility] [place] TYPE: Emergency COMPLAINT: - ACUTE HYPOXEMIC RESP. FAILURE DIAGNOSES: - Essential (primary) hypertension - Postprocedural pneumothorax - Shortness of breath - Other specified postprocedural states - Acute respiratory failure with hypoxia - Nicotine dependence, unspecified, in remission - Pleural effusion, not elsewhere classified - Other buttermaker helper (current) drug therapy - Chronic obstructive pulmonary disease, unspecified - Allergy status to narcotic agent - Gout, unspecified - Hypothyroidism, unspecified - buttermaker helper (current) use of aspirin INPATIENT VISIT TRACKING (12 MO.) 02/03/2021 19:19 [facility] TYPE: Cardiology DIAGNOSES: - Pneumothorax, unspecified - persistant right pneumothorax, lung nodules 01/29/2021 20:[address] [facility] [place] TYPE: Medical Surgical COMPLAINT: - RIGHT PTX, S/P CHEST TUBE PLACEMENT DIAGNOSES: - buttermaker helper (current) use of aspirin - Other buttermaker helper (current) drug therapy - Nicotine dependence, cigarettes, uncomplicated - Abnormal weight loss - Other nonspecific abnormal finding of lung field - Neoplasm of unspecified behavior of respiratory system - Other specified postprocedural states - Other custodial (current) drug therapy - Gout, unspecified - Acute kidney failure, unspecified - Essential (primary) hypertension - Allergy status to narcotic agent - Nicotine dependence, cigarettes, uncomplicated - Hyperuricemia without signs of inflammatory arthritis and tophaceous disease - Gout, unspecified - Abnormal weight loss - Other nonspecific abnormal finding of lung field - Postprocedural pneumothorax - Acute kidney failure, unspecified - Essential (primary) hypertension - Acute respiratory failure with hypoxia - Neoplasm of unspecified behavior of respiratory system - Hypothyroidism, unspecified - Acute respiratory distress - Hypothyroidism, unspecified - Postprocedural pneumothorax - Other specified postprocedural states - Emphysema, unspecified - Pleural effusion, not elsewhere classified - Allergy status to narcotic agent - Emphysema, unspecified - Acute respiratory distress - buttermaker helper (current) use of aspirin - Hyperuricemia without signs of inflammatory arthritis and tophaceous disease 01/25/2021 15:[address] [facility] [place] TYPE: Observation COMPLAINT: - ACUTE HYPOXEMIC RESP. FAILURE DIAGNOSES: - Essential (primary) hypertension - Postprocedural pneumothorax - Allergy status to narcotic agent - Other custodial (current) drug therapy - detention (current) use of aspirin - Shortness of breath - Other specified postprocedural states - Nicotine dependence, unspecified, in remission - Acute respiratory failure with hypoxia - Other nonspecific abnormal finding of lung field - Hypothyroidism, unspecified - Gout, unspecified - Allergy status to other drugs, medicaments and biological substances - Traumatic subcutaneous emphysema, initial encounter - Chronic obstructive pulmonary disease, unspecified - Emphysema (subcutaneous) resulting from a procedure, initial encounter - Pleural effusion, not elsewhere classified [email or web address]
== END 2021-02-07 19:13 | disposition home or self-care (01) ==
LOC: ED 17:55
DX: L76.34 Postprocedural seroma of skin and subcutaneous tissue following other procedure (principal); E03.9 Hypothyroidism, unspecified; I10 Essential (primary) hypertension; M10.9 Gout, unspecified; F17.200 Nicotine dependence, unspecified, uncomplicated; Z88.8 Allergy status to other drugs, medicaments and biological substances; Z88.5 Allergy status to narcotic agent; Z79.899 Other long term (current) drug therapy; Z79.82 Long term (current) use of aspirin
CPT/HCPCS: 71046; 80048; 85025; 99285-25

== ENCOUNTER 2021-02-23 12:42 | Emergency (ER) | payer MEDICARE, OTHER ==
[~2021-02-23] VITALS: Ht 147.3 cm; Wt 52.2 kg
--- OUTSIDE RECORDS SUMMARY | 2021-02-23 12:46 | XMS ---
PreManage Notification: JD BRENNAN Security Board Machine Set Up Operator Events No recent Security Events currently on file CRITERIA MET - [facility] - 2 Visits in 30 Days CARE PROVIDERS PAUL KHAN [facility] Current PHONE: [phone] Josiah has no Care Guidelines for this patient. Thais VISIT COUNT (12 MO.) 4 [facility] TOTAL 4 NOTE: Visits indicate total known visits. ED/UCC VISIT TRACKING (12 MO.) 02/23/2021 12:43 [facility] TYPE: Emergency COMPLAINT: - SOB, HIGH BP 02/07/2021 17:56 [facility] TYPE: Emergency COMPLAINT: - LOW OXYGEN LEVELS DIAGNOSES: - Gout, unspecified - Allergy status to narcotic agent - half-way (current) use of aspirin - Shortness of breath - Nicotine dependence, unspecified, uncomplicated - Other half-way (current) drug therapy - Allergy status to other drugs, medicaments and biological substances - Essential (primary) hypertension - Hypothyroidism, unspecified - Postprocedural seroma of skin and subcutaneous tissue following other procedure 01/29/2021 18:56 [facility] TYPE: Emergency COMPLAINT: - CHEST PROBLEM 01/25/2021 15:40 [facility] TYPE: Emergency COMPLAINT: - ACUTE HYPOXEMIC RESP. FAILURE DIAGNOSES: - Essential (primary) hypertension - Postprocedural pneumothorax - Shortness of breath - Other specified postprocedural states - Acute respiratory failure with hypoxia - Nicotine dependence, unspecified, in remission - Pleural effusion, not elsewhere classified - Other half-way (current) drug therapy - Chronic obstructive pulmonary disease, unspecified - Allergy status to narcotic agent - Gout, unspecified - Hypothyroidism, unspecified - terminal computer operator (current) use of aspirin INPATIENT VISIT TRACKING (12 MO.) 02/03/2021 19:19 [facility] TYPE: Cardiology DIAGNOSES: - Pneumothorax, unspecified - persistant right pneumothorax, lung nodules 01/29/2021 20:54 [facility] TYPE: Medical Surgical COMPLAINT: - RIGHT PTX, S/P CHEST TUBE PLACEMENT DIAGNOSES: - terminal computer operator (current) use of aspirin - Other half-way (current) drug therapy - Nicotine dependence, cigarettes, uncomplicated - Abnormal weight loss - Other nonspecific abnormal finding of lung field - Neoplasm of unspecified behavior of respiratory system - Other specified postprocedural states - Other half-way (current) drug therapy - Gout, unspecified - [...] Emphysema, unspecified - Acute respiratory distress - half-way (current) use of aspirin - Hyperuricemia without signs of inflammatory arthritis and tophaceous disease 01/25/2021 15:[address] [facility] TYPE: Observation COMPLAINT: - ACUTE HYPOXEMIC RESP. FAILURE DIAGNOSES: - Essential (primary) hypertension - Postprocedural pneumothorax - Allergy status to narcotic agent - Other half-way (current) drug therapy - terminal computer operator (current) use of aspirin - Shortness of [...] encounter - Pleural effusion, not elsewhere classified [email or web address]
== END 2021-02-23 14:40 | disposition home or self-care (01) ==
LOC: ED 12:42
DX: J90 Pleural effusion, not elsewhere classified (principal); I10 Essential (primary) hypertension; E03.9 Hypothyroidism, unspecified; M10.9 Gout, unspecified; F17.200 Nicotine dependence, unspecified, uncomplicated; Z88.8 Allergy status to other drugs, medicaments and biological substances; Z88.5 Allergy status to narcotic agent; Z79.899 Other long term (current) drug therapy; Z79.82 Long term (current) use of aspirin
CPT/HCPCS: 71045; 99284-25

== ENCOUNTER 2021-02-25 15:28 | Observation (INO) | payer MEDICARE, OTHER ==
[~2021-02-25] VITALS: Ht 147.3 cm; Wt 52.2 kg
--- OUTSIDE RECORDS SUMMARY | 2021-02-25 15:34 | XMS ---
PreManage Notification: JD BRENNAN Security Slate Splitter Events No recent Security Events currently on file CRITERIA MET - [facility] - 2 Visits in 30 Days - [facility] - Has Care Guidelines CARE PROVIDERS PAUL KHAN [facility] Current PHONE: [phone] Josiah has no Care Guidelines for this patient. Care History Medical/Surgical 02/24/2021 [facility], \T\nbsp; PLEASE REFER PATIENT TO [facility] FOR NON EMERGENT MEDICAL NEEDS. \T\nbsp; [facility] CAN SEE PATIENTS SAME DAY FOR APTS IF PATIENT CALLS FIRST THING IN THE MORNING. E.D. VISIT COUNT (12 MO.) 5 [facility] TOTAL 5 NOTE: Visits indicate total known visits. ED/UCC VISIT TRACKING (12 MO.) 02/25/2021 15:28 [facility] TYPE: Emergency COMPLAINT: - SHORTNESS OF BREATH 02/23/2021 12:43 [facility] TYPE: Emergency COMPLAINT: - SOB, HIGH BP 02/07/2021 17:56 [facility] TYPE: Emergency COMPLAINT: - LOW OXYGEN LEVELS DIAGNOSES: - Gout, unspecified - Allergy status to narcotic agent - snf (current) use of aspirin - Shortness of breath - Nicotine dependence, unspecified, uncomplicated - Other assisted (current) drug therapy - Allergy status to other drugs, medicaments and biological substances - Essential (primary) hypertension - Hypothyroidism, unspecified - Postprocedural seroma of skin and subcutaneous tissue following other procedure 01/29/2021 18:56 [facility] TYPE: Emergency COMPLAINT: - CHEST PROBLEM 01/25/2021 15:[address] [facility] TYPE: Emergency COMPLAINT: - ACUTE HYPOXEMIC RESP. FAILURE DIAGNOSES: - Essential (primary) hypertension - Postprocedural pneumothorax - Shortness of breath - Other specified postprocedural states - Acute respiratory failure with hypoxia - Nicotine dependence, unspecified, in remission - Pleural effusion, not elsewhere classified - Other assisted (current) drug therapy - Chronic obstructive pulmonary disease, unspecified - Allergy status to narcotic agent - Gout, unspecified - Hypothyroidism, unspecified - snf (current) use of aspirin INPATIENT VISIT TRACKING (12 MO.) 02/03/2021 19:19 [facility] TYPE: Cardiology DIAGNOSES: - Pneumothorax, unspecified - persistant right pneumothorax, lung nodules 01/29/2021 20:[address] [facility] [place] TYPE: Medical Surgical COMPLAINT: - RIGHT PTX, S/P CHEST TUBE PLACEMENT DIAGNOSES: - continuous churn buttermaker (current) use of aspirin - Other assisted (current) drug therapy - Nicotine dependence, cigarettes, uncomplicated - Abnormal weight loss - Other nonspecific abnormal finding of lung field - Neoplasm of unspecified behavior of respiratory system - Other specified postprocedural states - Other terminal supervisor (current) drug therapy - Gout, unspecified - [...] Emphysema, unspecified - Acute respiratory distress - snf (current) use of aspirin - Hyperuricemia without signs of inflammatory arthritis and tophaceous disease 01/25/2021 15:[address] [facility] TYPE: Observation COMPLAINT: - ACUTE HYPOXEMIC RESP. FAILURE DIAGNOSES: - Essential (primary) hypertension - Postprocedural pneumothorax - Allergy status to narcotic agent - Other terminal supervisor (current) drug therapy - snf (current) use of aspirin - Shortness of [...] encounter - Pleural effusion, not elsewhere classified [email or web address]
--- NOTE | 2021-02-25 19:56 | EKG ---
[facility] [address] [place] [address] Signed Sinus tachycardia with 1st degree AV block Rightward axis Pulmonary disease pattern Prolonged QT Abnormal ECG When compared with ECG of 29-JAN-2021 19:19, AK interval has increased Confirmed by LILIA FISCHER MD ([id number]) on 02/25/2021 7:56:00 PM Electronically Signed By: LILIA FISCHER MD 02/25/211955 PATIENT NAME: JD BERNNAN Electrocardiogram DATE OF : 52 PHYSICIAN: LILIA FISCHER MD REPORT #: [id number] REPORT IS CONFIDENTIAL AND NOT TO BE RELEASED WITHOUT AUTHORIZATION
--- NOTE | 2021-02-25 22:41 | NUR ---
PATIENT ARRIVED TO THE FLOOR VIA STRETCHER. PATIENT WAS ABLE TO AMBULATE OFF STRETCHED TO THE RESTROOM. PATIENT WAS ABLE TO VOID. PATIENT IS NOW IN BED RESTING. PATIENTS ADMISSION COMPLETED. PATIENT EDUCATED SUPERVISOR TANK STORAGE LIGHT. IV INFUSING PER ORDER. MEDICATIONS GIVEN PER ORDER.
--- NOTE | 2021-02-25 23:12 | NUR ---
HANDOFF REPORT RECEIVED FROM VANDANA JEREZ, ASSUMED CARE OF pt.
--- NOTE | 2021-02-25 23:55 | NUR ---
pt COUGHING, RN IN ROOM. pt ASSISTED TO SIT UP IN BED, DRINK OF WATER PROVIDED. NO ADDITIONAL NEEDS. IN CHAIR.
--- NOTE | 2021-02-26 00:58 | NUR ---
CALL LIGHT ANSWERED. SBA TO RESTROOM FOR VOID AND BACK TO BED. IVF INFUSING WNL. WARM BLANKET PROVIDED. NO ADDITIONAL NEEDS AT THIS TIME. CALL LIGHT IN REACH.
--- NOTE | 2021-02-26 03:15 | NUR ---
pt RESTING IN BED, HOB ELEVATED, TRIPOD POSITION ON PILLOWS, EYES CLOSED. NO DISTRESS NOTED. SPO2 93% WITH 2L OXYGEN BY NC IN PLACE. CPOX ON.
--- NOTE | 2021-02-26 05:11 | NUR ---
PATIENT ASSISTED TO THE RESTROOM A SBA. PATIENT WAS ABLE TO VOID. PATIENT IS BACK IN BED RESTING. VITALS TAKEN AND RECORDED. INTAKE AND OUPUT RECORDED. PATIENT PROVIDED WITH WARM BLANKET. PATIENTS IS ASLEEP IN RECLINER. PATIENT REMAINS ON 2L VIA NC. PATIENT DENIES ANY FURTHER NEEDS. CALL LIGHT IN REACH.
--- NOTE | 2021-02-26 07:00 | NUR ---
MORNINF MEDICATIONS GIVEN PER ORDER. PATIENT IS IN BED RESTING. IV INFUSING PER ORDER. NO NEEDS NOTED. CALL LIGHT IN REACH.
--- NOTE | 2021-02-26 07:30 | NUR ---
Shift report received from VANDANA Calhoun, pt resting in bed w/ call light in reach. Eyes closed, RR even and unlabored.
--- NOTE | 2021-02-26 07:39 | NUR ---
Shift report received from VANDANA Don, pt resting in bed w/ call light in reach. Eyes closed, RR even and unlabored.
--- NOTE | 2021-02-26 08:08 | NUR ---
PT SITTING UP IN BED EATING BREAKFAST. IV FLUIDS INFUSING PER PROVIDER ORDER. MORNING ASSEMENT COMPLETE AND SCHEDULED MEDS GIVEN PER PROVIDER ORDERS. PT'S O2 SATS 93% ON 2L VIA NC, PT DOES NOT APPEAR TO BE IN RESPIRATOY DISTRESS, RR EVEN AND UNLABORED. PT DENIES ANY OTHER NEEDS A THIS TIME.
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
== END 2021-02-26 10:05 | disposition home or self-care (01) ==
LOC: ED 15:28 → MS 15:29
PROVIDERS: ADMIT Internal Medicine; ATTEND Internal Medicine
DX: R04.2 Hemoptysis (principal); C34.90 Malignant neoplasm of unspecified part of unspecified bronchus or lung; E03.9 Hypothyroidism, unspecified; I10 Essential (primary) hypertension; M10.9 Gout, unspecified; Z79.82 Long term (current) use of aspirin; Z87.891 Personal history of nicotine dependence; Z20.822 Contact with and (suspected) exposure to COVID-19
CPT/HCPCS: 71045; 71260; 80048; 80053; 85007; 85025; 85610; 86850; 86900; 86901; 93005; 93010; 94762; 96375; 96376; 99285-25; C9113; C9803; G0378; J1100; J3480; Q9967; U0003

== ENCOUNTER 2021-03-17 14:30 | Emergency (ER) | payer MEDICARE, OTHER ==
[~2021-03-17] VITALS: Ht 147.3 cm; Wt 50.8 kg
--- OUTSIDE RECORDS SUMMARY | 2021-03-17 14:34 | XMS ---
PreManage Notification: JD BRENNAN Security Playground Aide Events No recent Security Events currently on file CRITERIA MET - [facility] - 2 Visits in 30 Days - PDMP - [facility] - Has Care Guidelines - 6 ED Visits in 6 Months CARE PROVIDERS ZACK Keller Internal Medicine: Medical Oncology 02/26/2021-Current FAVIAN PHONE: [phone] PAUL KHAN [facility] Current PHONE: [phone] Josiah has no Care Guidelines for this patient. Care History Medical/Surgical 02/24/2021 [facility] - PATIENT IS [facility], \T\nbsp; PLEASE REFER PATIENT TO [facility] FOR NON EMERGENT MEDICAL NEEDS. \T\nbsp; [facility] CAN SEE PATIENTS SAME DAY FOR APTS IF PATIENT CALLS FIRST THING IN THE MORNING. E.D. VISIT COUNT (12 MO.) 6 [facility] TOTAL 6 NOTE: Visits indicate total known visits. ED/UCC VISIT TRACKING (12 MO.) 03/17/2021 14:31 [facility] TYPE: Emergency COMPLAINT: - LOW B/P HEART RATE 02/25/2021 15:28 [facility] TYPE: Emergency COMPLAINT: - SHORTNESS OF BREATH 02/23/2021 12:43 [facility] TYPE: Emergency COMPLAINT: - SOB, HIGH BP DIAGNOSES: - Hypothyroidism, unspecified - Allergy status to narcotic agent - Essential (primary) hypertension - intermediate (current) use of aspirin - Pleural effusion, not elsewhere classified - Allergy status to other drugs, medicaments and biological substances - Gout, unspecified - Shortness of breath - Other penitentiary (current) drug therapy - Nicotine dependence, unspecified, uncomplicated 02/07/2021 17:56 [facility] TYPE: Emergency COMPLAINT: - LOW OXYGEN LEVELS DIAGNOSES: - Gout, unspecified - Allergy status to narcotic agent - exterminator helper termite (current) use of aspirin - Shortness of breath - Nicotine dependence, unspecified, uncomplicated - Other penitentiary (current) drug therapy - Allergy status to [...] Pleural effusion, not elsewhere classified - Other intermediate teacher (current) drug therapy - Chronic obstructive pulmonary disease, unspecified - Allergy status to narcotic agent - Gout, unspecified - Hypothyroidism, unspecified - exterminator helper termite (current) use of aspirin INPATIENT VISIT TRACKING (12 MO.) 02/25/2021 15:29 [facility] TYPE: Observation COMPLAINT: - HEMOPTYSIS DIAGNOSES: - Gout, unspecified - Essential (primary) hypertension - Hemoptysis - Hypothyroidism, unspecified - Personal history of nicotine dependence - exterminator helper termite (current) use of aspirin - Malignant neoplasm of unspecified part of unspecified bronchus or lung 02/03/2021 19:19 [facility] TYPE: Cardiology DIAGNOSES: - Pneumothorax, unspecified - persistant right pneumothorax, lung nodules 01/29/2021 20:[address] [facility] TYPE: Medical Surgical COMPLAINT: - RIGHT PTX, S/P CHEST TUBE PLACEMENT DIAGNOSES: - intermediate (current) use of aspirin - Other penitentiary (current) drug therapy - Nicotine dependence, cigarettes, uncomplicated - Abnormal weight loss - Other nonspecific abnormal finding of lung field - Neoplasm of unspecified behavior of respiratory system - Other specified postprocedural states - Other penitentiary (current) drug therapy - Gout, unspecified - [...] Emphysema, unspecified - Acute respiratory distress - exterminator helper termite (current) use of aspirin - Hyperuricemia without signs of inflammatory arthritis and tophaceous disease 01/25/2021 15:[address] [facility] TYPE: Observation COMPLAINT: - ACUTE HYPOXEMIC RESP. FAILURE DIAGNOSES: - Essential (primary) hypertension - Postprocedural pneumothorax - Allergy status to narcotic agent - Other intermediate teacher (current) drug therapy - intermediate (current) use of aspirin - Shortness of [...] encounter - Pleural effusion, not elsewhere classified [id number]
[2021-03-17] MEDS ORDERED: ONDANSETRON ODT8 MG PO (14:46)
[2021-03-17] MEDS ORDERED: DEXAMETHASONE4 MG PO (14:46)
--- NOTE | 2021-03-19 13:22 | EKG ---
[facility] [address] [facility] [place] [address] Signed Irregular narrow complex rhythm, likely Atrial fibrillation Possible Right ventricular hypertrophy Nonspecific T wave abnormality Abnormal ECG When compared with ECG of 25-FEB-2021 16:05, Nonspecific T wave abnormality, worse in Inferior leads Nonspecific T wave abnormality, worse in Anterolateral leads Confirmed by CHITRA GUILLEN MD ([id number]) on 03/19/2021 1:22:05 PM Electronically Signed By: CHITRA GUILLEN MD 03/19/21 1322 PATIENT NAME: JD BRENNAN Electrocardiogram DATE OF : 52 PHYSICIAN: CHITRA GUILLEN MD REPORT #: [id number] REPORT IS CONFIDENTIAL AND NOT TO BE RELEASED WITHOUT AUTHORIZATION
== END 2021-03-17 19:11 | disposition home or self-care (01) ==
LOC: ED 14:30
DX: E83.42 Hypomagnesemia (principal); E87.6 Hypokalemia; R00.0 Tachycardia, unspecified; E03.9 Hypothyroidism, unspecified; I10 Essential (primary) hypertension; M10.9 Gout, unspecified; Z87.891 Personal history of nicotine dependence; Z88.5 Allergy status to narcotic agent; Z88.8 Allergy status to other drugs, medicaments and biological substances; Z79.82 Long term (current) use of aspirin; Z79.899 Other long term (current) drug therapy; Z85.118 Personal history of other malignant neoplasm of bronchus and lung
CPT/HCPCS: 71045; 80053; 83735; 84484; 85025; 93005; 93010; 96365; 96375; 99285-25; J3475; J3480; J7040

== ENCOUNTER 2021-08-11 17:17 | Emergency (ER) | payer MEDICARE, OTHER ==
[~2021-08-11] VITALS: Ht 147.3 cm; Wt 50.2 kg
[~2021-08-11 17:17] MED LIST changes: +DEXAMETHASONE4 MG PO; +ONDANSETRON ODT8 MG PO
--- OUTSIDE RECORDS SUMMARY | 2021-08-11 17:20 | XMS ---
PreManage Notification: JD BRENNAN Security Casing Finisher And Stuffer Events No recent Security Events currently on file CRITERIA MET - PDMP - [facility] - Has Care Guidelines CARE PROVIDERS REMEDIOS KellerZACK Internal Medicine: Medical Oncology 02/26/2021-Current FAVIAN PHONE: [phone] PAUL KHAN [facility] Current PHONE: Unknown JADE BARRIOS [facility] Current PHONE: [phone] Josiah has no Care Guidelines for this patient. Care History Medical/Surgical 02/24/2021 [facility] - PATIENT IS [facility], \T\nbsp; PLEASE REFER PATIENT TO [facility] FOR NON EMERGENT MEDICAL NEEDS. \T\nbsp; [facility] CAN SEE PATIENTS SAME DAY FOR APTS IF PATIENT CALLS FIRST THING IN THE MORNING. Thais VISIT COUNT (12 MO.) 7 [facility] TOTAL 7 NOTE: Visits indicate total known visits. ED/UCC VISIT TRACKING (12 MO.) 08/11/2021 17:18 [facility] TYPE: Emergency COMPLAINT: - VOMITING BLOOD 03/17/2021 14:31 [facility] TYPE: Emergency COMPLAINT: - LOW B/P HEART RATE DIAGNOSES: - Tachycardia, unspecified - Personal history of nicotine dependence - Personal history of other malignant neoplasm of bronchus and lung - Other fpc (current) drug therapy - Essential (primary) hypertension - Gout, unspecified - Hypokalemia - Allergy status to narcotic agent - equipment operator intermodal yard (current) use of aspirin - Elevated blood-pressure reading, without diagnosis of hypertension - Hypothyroidism, unspecified - Allergy status to other drugs, medicaments and biological substances - Hypomagnesemia 02/25/2021 15:[address] [facility] TYPE: Emergency COMPLAINT: - SHORTNESS OF BREATH 02/23/2021 12:[address] [facility] TYPE: Emergency COMPLAINT: - SOB, HIGH BP DIAGNOSES: - Hypothyroidism, unspecified - Allergy status to narcotic agent - Essential (primary) hypertension - MCC (current) use of aspirin - Pleural effusion, not elsewhere classified - Allergy status to other drugs, medicaments and biological substances - Gout, unspecified - Shortness of breath - Other fpc (current) drug therapy - Nicotine dependence, unspecified, uncomplicated 02/07/2021 17:56 [facility] TYPE: Emergency COMPLAINT: - LOW OXYGEN LEVELS DIAGNOSES: - Gout, unspecified - Allergy status to narcotic agent - MCC (current) use of aspirin - Shortness of breath - Nicotine dependence, unspecified, uncomplicated - Other equipment operator intermodal yard (current) drug therapy - Allergy status to [...] Pleural effusion, not elsewhere classified - Other fpc (current) drug therapy - Chronic obstructive pulmonary disease, unspecified - Allergy status to narcotic agent - Gout, unspecified - Hypothyroidism, unspecified - MCC (current) use of aspirin INPATIENT VISIT TRACKING (12 MO.) 02/25/2021 15:29 [facility] TYPE: Observation COMPLAINT: - HEMOPTYSIS DIAGNOSES: - Gout, unspecified - Essential (primary) hypertension - Hemoptysis - Hypothyroidism, unspecified - Personal history of nicotine dependence - MCC (current) use of aspirin - Malignant neoplasm of unspecified part of unspecified bronchus or lung 02/03/2021 19:19 [facility] TYPE: Cardiology DIAGNOSES: - Pneumothorax, unspecified - persistant right pneumothorax, lung nodules 01/29/2021 20:54 [facility] TYPE: Medical Surgical COMPLAINT: - RIGHT PTX, S/P CHEST TUBE PLACEMENT DIAGNOSES: - equipment operator intermodal yard (current) use of aspirin - Other equipment operator intermodal yard (current) drug therapy - Nicotine dependence, cigarettes, uncomplicated - Abnormal weight loss - Other nonspecific abnormal finding of lung field - Neoplasm of unspecified behavior of respiratory system - Other specified postprocedural states - Other equipment operator intermodal yard (current) drug therapy - Gout, unspecified - [...] Emphysema, unspecified - Acute respiratory distress - MCC (current) use of aspirin - Hyperuricemia without signs of inflammatory arthritis and tophaceous disease 01/25/2021 15:[address] [facility] TYPE: Observation COMPLAINT: - ACUTE HYPOXEMIC RESP. FAILURE DIAGNOSES: - Essential (primary) hypertension - Postprocedural pneumothorax - Allergy status to narcotic agent - Other equipment operator intermodal yard (current) drug therapy - MCC (current) use of aspirin - Shortness of [...] encounter - Pleural effusion, not elsewhere classified [email or web address]
[2021-08-11] MEDS ORDERED: LASIX20 MG PO (21:04)
== END 2021-08-11 21:15 | disposition home or self-care (01) ==
LOC: ED 17:17
DX: R04.2 Hemoptysis (principal); Z20.822 Contact with and (suspected) exposure to COVID-19; E03.9 Hypothyroidism, unspecified; I10 Essential (primary) hypertension; M10.9 Gout, unspecified; Z85.118 Personal history of other malignant neoplasm of bronchus and lung; Z87.891 Personal history of nicotine dependence; Z88.8 Allergy status to other drugs, medicaments and biological substances; Z88.6 Allergy status to analgesic agent; Z88.5 Allergy status to narcotic agent; Z79.82 Long term (current) use of aspirin; Z79.890 Hormone replacement therapy; Z79.899 Other long term (current) drug therapy
CPT/HCPCS: 36415; 71045; 71250; 80053; 85025; 85379; 99284-25; C9803; U0003

== ENCOUNTER 2021-10-05 21:00 | Emergency (ER) | payer MEDICARE, OTHER ==
[~2021-10-05] VITALS: Ht 147.3 cm; Wt 48.8 kg
[~2021-10-05 21:00] MED LIST changes: +LASIX20 MG PO
--- OUTSIDE RECORDS SUMMARY | 2021-10-05 21:02 | XMS ---
PreManage Notification: JD BRENNAN Security Coach Wirer Events No recent Security Events currently on file CRITERIA MET - [facility] - Has Care Guidelines CARE PROVIDERS ZACK Keller Internal Medicine: Medical Oncology 02/26/2021-Current FAVIAN PHONE: [phone] [facility] Current PHONE: Unknown Josiah has no Care Guidelines for this patient. Care History Medical/Surgical 08/12/2021 [facility] - PATIENT ONCOLOGIST DR ZACK Plascencia VISIT COUNT (12 MO.) [address] [place], [place] [address] TOTAL 8 NOTE: Visits indicate total known visits. ED/UCC VISIT TRACKING (12 MO.) 10/05/2021 21:01 [facility] [place] TYPE: Emergency COMPLAINT: - COLD SYMPTOMS 08/11/2021 17:18 [facility] [place] TYPE: Emergency COMPLAINT: - VOMITING BLOOD DIAGNOSES: - Hemoptysis - Personal history of nicotine dependence - Allergy status to analgesic agent - Other buttermaker continuous churn (current) drug therapy - Allergy status to narcotic agent - Personal history of other malignant neoplasm of bronchus and lung - termite renewal inspector (current) use of aspirin - Hormone replacement therapy - Gout, unspecified - Allergy status to other drugs, medicaments and biological substances - Essential (primary) hypertension - Hypothyroidism, unspecified 03/17/2021 14:31 [facility] [place] TYPE: Emergency COMPLAINT: - LOW B/P HEART RATE DIAGNOSES: - Tachycardia, unspecified - Personal history of nicotine dependence - Personal history of other malignant neoplasm of bronchus and lung - Other buttermaker continuous churn (current) drug therapy - Essential (primary) hypertension - Gout, unspecified - Hypokalemia - Allergy status to narcotic agent - termite renewal inspector (current) use of aspirin - Elevated blood-pressure reading, without diagnosis of hypertension - Hypothyroidism, unspecified - Allergy status to other drugs, medicaments and biological substances - Hypomagnesemia 02/25/2021 15:28 [facility] [place] TYPE: Emergency COMPLAINT: - SHORTNESS OF BREATH 02/23/2021 12:43 [facility] [place] TYPE: Emergency COMPLAINT: - SOB, HIGH BP DIAGNOSES: - Hypothyroidism, unspecified - Allergy status to narcotic agent - Essential (primary) hypertension - penitentiary (current) use of aspirin - Pleural effusion, not elsewhere classified - Allergy status to other drugs, medicaments and biological substances - Gout, unspecified - Shortness of breath - Other senior care (current) drug therapy - Nicotine dependence, unspecified, uncomplicated 02/07/2021 17:56 [facility] [place] TYPE: Emergency COMPLAINT: - LOW OXYGEN LEVELS DIAGNOSES: - Gout, unspecified - Allergy status to narcotic agent - penitentiary (current) use of aspirin - Shortness of breath - Nicotine dependence, unspecified, uncomplicated - Other buttermaker continuous churn (current) drug therapy - Allergy status to [...] effusion, not elsewhere classified - Other buttermaker continuous churn (current) drug therapy - Chronic obstructive pulmonary disease, unspecified - Allergy status to narcotic agent - Gout, unspecified - Hypothyroidism, unspecified - termite renewal inspector (current) use of aspirin INPATIENT VISIT TRACKING (12 MO.) 02/25/2021 15:[address] [facility] [place] TYPE: Observation COMPLAINT: - HEMOPTYSIS DIAGNOSES: - Gout, unspecified - Essential (primary) hypertension - Hemoptysis - Hypothyroidism, unspecified - Personal history of nicotine dependence - termite renewal inspector (current) use of aspirin - Malignant neoplasm of unspecified part of unspecified bronchus or lung 02/03/2021 19:19 [facility] TYPE: Cardiology DIAGNOSES: - Pneumothorax, unspecified - persistant right pneumothorax, lung nodules 01/29/2021 20:54 [facility] [place] TYPE: Medical Surgical COMPLAINT: - RIGHT PTX, S/P CHEST TUBE PLACEMENT DIAGNOSES: - termite renewal inspector (current) use of aspirin - Other senior care (current) drug therapy - Nicotine dependence, cigarettes, uncomplicated - Abnormal weight loss - Other nonspecific abnormal finding of lung field - Neoplasm of unspecified behavior of respiratory system - Other specified postprocedural states - Other buttermaker continuous churn (current) drug therapy - Gout, unspecified - [...] Emphysema, unspecified - Acute respiratory distress - termite renewal inspector (current) use of aspirin - Hyperuricemia without signs of inflammatory arthritis and tophaceous disease 01/25/2021 15:41 [facility] [place] TYPE: Observation COMPLAINT: - ACUTE HYPOXEMIC RESP. FAILURE DIAGNOSES: - Essential (primary) hypertension - Postprocedural pneumothorax - Allergy status to narcotic agent - Other buttermaker continuous churn (current) drug therapy - penitentiary (current) use of aspirin - Shortness of [...] encounter - Pleural effusion, not elsewhere classified [email or web address]
[2021-10-05] MEDS ORDERED: LASIX40 MG PO (23:07)
== END 2021-10-05 23:36 | disposition home or self-care (01) ==
LOC: ED 21:00
DX: I11.0 Hypertensive heart disease with heart failure (principal); I50.9 Heart failure, unspecified; J90 Pleural effusion, not elsewhere classified; E03.9 Hypothyroidism, unspecified; M10.9 Gout, unspecified; Z85.118 Personal history of other malignant neoplasm of bronchus and lung; Z87.891 Personal history of nicotine dependence; Z88.5 Allergy status to narcotic agent; Z88.8 Allergy status to other drugs, medicaments and biological substances; Z20.822 Contact with and (suspected) exposure to COVID-19
CPT/HCPCS: 36415; 71045; 80048; 83880; 84443; 85025; 96374; 99285-25; J1940; U0003

== ENCOUNTER 2022-02-23 01:34 | Emergency (ER) | payer MEDICARE, OTHER ==
[~2022-02-23] VITALS: Ht 147.3 cm; Wt 45.8 kg
[~2022-02-23 01:34] MED LIST changes: +LASIX40 MG PO
--- OUTSIDE RECORDS SUMMARY | 2022-02-23 01:38 | XMS ---
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 Care History Medical/Surgical 08/12/2021 [facility] - PATIENT ONCOLOGIST DR ZACK Plascencia VISIT COUNT (12 MO.) [address] [place], [place] [address] TOTAL 6 NOTE: Visits indicate total known visits. ED/UCC VISIT TRACKING (12 MO.) 02/23/2022 01:35 [facility] [place] TYPE: Emergency COMPLAINT: - COUGH 10/05/2021 21:01 [facility] [place] TYPE: Emergency COMPLAINT: - COLD SYMPTOMS DIAGNOSES: - Allergy status to narcotic agent - Heart failure, unspecified - Gout, unspecified - Pleural effusion, not elsewhere classified - Shortness of breath - Hypothyroidism, unspecified - Hypertensive heart disease with heart failure - Personal history of other malignant neoplasm of bronchus and lung - Allergy status to other drugs, medicaments and biological substances - Personal history of nicotine dependence - Contact with and (suspected) exposure to COVID-19 08/11/2021 17:18 [facility] [place] TYPE: Emergency COMPLAINT: - VOMITING BLOOD DIAGNOSES: - Hemoptysis - Personal history of nicotine dependence - Allergy status to analgesic agent - Other jail (current) drug therapy - Allergy status to narcotic agent - Personal history of other malignant neoplasm of bronchus and lung - emt intermediate (current) use of aspirin - Contact with and (suspected) exposure to COVID-19 - Hormone replacement therapy - Gout, unspecified - Allergy status to other drugs, medicaments and biological substances - Essential (primary) hypertension - Hypothyroidism, unspecified 03/17/2021 14:31 [facility] [place] TYPE: Emergency COMPLAINT: - LOW B/P HEART RATE DIAGNOSES: - Tachycardia, unspecified - Personal history of nicotine dependence - Personal history of other malignant neoplasm of bronchus and lung - Other jail (current) drug therapy - Essential (primary) hypertension - Gout, unspecified - Hypokalemia - Allergy status to narcotic agent - shelter (current) use of aspirin - Elevated blood-pressure reading, without diagnosis of hypertension - Hypothyroidism, unspecified - Allergy status to other drugs, medicaments and biological substances - Hypomagnesemia 02/25/2021 15:28 [facility] [place] TYPE: Emergency COMPLAINT: - SHORTNESS OF BREATH 02/23/2021 12:[address] [facility] [place] TYPE: Emergency COMPLAINT: - SOB, HIGH BP DIAGNOSES: - Hypothyroidism, unspecified - Allergy status to narcotic agent - Essential (primary) hypertension - emt intermediate (current) use of aspirin - Pleural effusion, not elsewhere classified - Allergy status to other drugs, medicaments and biological substances - Gout, unspecified - Shortness of breath - Other jail (current) drug therapy - Nicotine dependence, unspecified, uncomplicated INPATIENT VISIT TRACKING (12 MO.) 02/25/2021 15:29 [facility] [place] TYPE: Observation COMPLAINT: - HEMOPTYSIS DIAGNOSES: - Gout, unspecified - Essential (primary) hypertension - Hemoptysis - Hypothyroidism, unspecified - Personal history of nicotine dependence - shelter (current) use of aspirin - Contact with and (suspected) exposure to COVID-19 - Malignant neoplasm of unspecified part of unspecified bronchus or lung [email or web address]
[2022-02-23] MEDS ORDERED: ZITHROMAX TRI-500 MG PO (02:54)
--- NOTE | 2022-02-24 07:28 | EKG ---
[facility] [address] [facility] [place] [address] Signed Sinus rhythm with 1st degree AV block Biatrial enlargement ST \T\ T wave abnormality, consider anterior ischemia Abnormal ECG When compared with ECG of 21-APR-2021 12:34, premature supraventricular complexes are no longer present Inverted T waves have replaced nonspecific T wave abnormality in Inferior leads Confirmed by LILIA FISCHER MD ([id number]) on 02/24/2022 7:27:46 AM Electronically Signed By: LILIA FISCHER MD 02/24/22 0728 PATIENT NAME: JD BRENNAN Electrocardiogram DATE OF : 52 PHYSICIAN: LILIA FISCHER MD REPORT #: [id number] REPORT IS CONFIDENTIAL AND NOT TO BE RELEASED WITHOUT AUTHORIZATION
== END 2022-02-23 03:18 | disposition home or self-care (01) ==
LOC: ED 01:34
DX: J44.1 Chronic obstructive pulmonary disease with (acute) exacerbation (principal); I10 Essential (primary) hypertension; E03.9 Hypothyroidism, unspecified; Z87.891 Personal history of nicotine dependence; Z79.899 Other long term (current) drug therapy; Z79.82 Long term (current) use of aspirin; Z88.6 Allergy status to analgesic agent; Z88.5 Allergy status to narcotic agent; Z88.8 Allergy status to other drugs, medicaments and biological substances; Z20.822 Contact with and (suspected) exposure to COVID-19
CPT/HCPCS: 36415; 71045; 80053; 84484; 85025; 87502; 93005; 93010; 94640; C9803; J0696; J2930; U0003

== ENCOUNTER 2022-05-20 14:02 | Emergency (ER) | payer MEDICARE, OTHER ==
[~2022-05-20] VITALS: Ht 147.3 cm; Wt 48.1 kg
[~2022-05-20 14:02] MED LIST changes: +ZITHROMAX TRI-500 MG PO
--- OUTSIDE RECORDS SUMMARY | 2022-05-20 14:10 | XMS ---
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 Care History Medical/Surgical 08/12/2021 [facility] - PATIENT ONCOLOGIST DR ZACK Plascencia VISIT COUNT (12 MO.) [address] [place], [place] [address] TOTAL 4 NOTE: Visits indicate total known visits. ED/UCC VISIT TRACKING (12 MO.) 05/20/2022 14:03 [facility] [place] TYPE: Emergency COMPLAINT: - SOB, DIZZY 02/23/2022 01:35 [facility] [place] TYPE: Emergency COMPLAINT: - COUGH DIAGNOSES: - shelter (current) use of aspirin - Other [facility] (current) drug therapy - Allergy status to other drugs, medicaments and biological substances - Allergy status to narcotic agent - Cough, unspecified - Chronic obstructive pulmonary disease with (acute) exacerbation - Personal history of nicotine dependence - Essential (primary) hypertension - Contact with and (suspected) exposure to COVID-19 - Hypothyroidism, unspecified - Allergy status to analgesic agent 10/05/2021 21:01 [facility] [place] TYPE: Emergency COMPLAINT: - COLD SYMPTOMS DIAGNOSES: - Hypothyroidism, unspecified - Pleural effusion, not elsewhere classified - Contact with and (suspected) exposure to COVID-19 - Heart failure, unspecified - Allergy status to other drugs, medicaments and biological substances - Hypertensive heart disease with heart failure - Shortness of breath - Gout, unspecified - Personal history of nicotine dependence - Allergy status to narcotic agent - Personal history of other malignant neoplasm of bronchus and lung 08/11/2021 17:18 [facility] [place] TYPE: Emergency COMPLAINT: - VOMITING BLOOD DIAGNOSES: - Personal history of other malignant neoplasm of bronchus and lung - Hypothyroidism, unspecified - Other [facility] (current) drug therapy - Allergy status to other drugs, medicaments and biological substances - Personal history of nicotine dependence - Hormone replacement therapy - shelter (current) use of aspirin - Allergy status to narcotic agent - Essential (primary) hypertension - Allergy status to analgesic agent - Gout, unspecified - Hemoptysis - Contact with and (suspected) exposure to COVID-19 INPATIENT VISIT TRACKING (12 MO.) No inpatient visits to display in this time frame [id number]
[2022-05-20] MEDS ORDERED: SPIRIVA18 MCG INH (14:24)
[2022-05-20] MEDS ORDERED: DORZOLAMIDE HCL10 ML OD (14:24)
[2022-05-20] MEDS ORDERED: ZITHROMAX250 MG PO (19:14)
--- NOTE | 2022-05-20 20:36 | EKG ---
[facility] [address] [facility] [place], [place] [address] Signed Sinus rhythm with 1st degree AV block Possible Right ventricular hypertrophy ST \T\ T wave abnormality, consider anterior ischemia Abnormal ECG When compared with ECG of 23-FEB-2022 01:53, No significant change was found Confirmed by LILIA FISCHER MD ([id number]) on 05/20/2022 8:36:33 PM Electronically Signed By: LILIA FISCHER MD 05/20/222035 PATIENT NAME: JD BRENNAN Electrocardiogram DATE OF : 52 PHYSICIAN: LILIA FISCHER MD REPORT #: [id number] REPORT IS CONFIDENTIAL AND NOT TO BE RELEASED WITHOUT AUTHORIZATION
== END 2022-05-20 19:23 | disposition home or self-care (01) ==
LOC: ED 14:02
DX: J40 Bronchitis, not specified as acute or chronic (principal); E03.9 Hypothyroidism, unspecified; I10 Essential (primary) hypertension; M10.9 Gout, unspecified; Z85.118 Personal history of other malignant neoplasm of bronchus and lung; Z87.891 Personal history of nicotine dependence; Z88.8 Allergy status to other drugs, medicaments and biological substances; Z88.5 Allergy status to narcotic agent; Z79.899 Other long term (current) drug therapy; Z79.82 Long term (current) use of aspirin
CPT/HCPCS: 36415; 71045; 80053; 83735; 84484; 85025; 93005; 93010; 94640; 99285-25; J1100

== ENCOUNTER 2022-06-20 07:02 | Emergency (ER) | payer MEDICARE, OTHER ==
[~2022-06-20] VITALS: Ht 147.3 cm; Wt 49.9 kg
[~2022-06-20 07:02] MED LIST changes: +DORZOLAMIDE HCL10 ML OD; +SPIRIVA18 MCG INH; +ZITHROMAX250 MG PO
--- OUTSIDE RECORDS SUMMARY | 2022-06-20 07:08 | XMS ---
PreManage Notification: JD BRENNAN Security Blocker Automatic Events No recent Security Events currently on file CRITERIA MET - [facility] - Has Care Guidelines CARE PROVIDERS ZACK Keller Internal Medicine: Medical Oncology 02/26/2021-Current FAVIAN PHONE: [phone] [facility] Current PHONE: Unknown Josiah has no Care Guidelines for this patient. Care History Medical/Surgical 08/12/2021 [facility] - PATIENT ONCOLOGIST DR ZACK Plascencia VISIT COUNT (12 MO.) [address] [place], [place] [address] TOTAL 5 NOTE: Visits indicate total known visits. ED/UCC VISIT TRACKING (12 MO.) 06/20/2022 07:02 [facility] [place] TYPE: Emergency COMPLAINT: - COUGH 05/20/2022 14:03 [facility] [place] TYPE: Emergency COMPLAINT: - SOB, DIZZY DIAGNOSES: - Other [facility] (current) drug therapy - Bronchitis, not specified as acute or chronic - Personal history of other malignant neoplasm of bronchus and lung - moth exterminator (current) use of aspirin - Essential (primary) hypertension - Allergy status to other drugs, medicaments and biological substances - Hypothyroidism, unspecified - Gout, unspecified - Personal history of nicotine dependence - Allergy status to narcotic agent - Shortness of breath 02/23/2022 01:35 [facility] [place] TYPE: Emergency COMPLAINT: - COUGH DIAGNOSES: - Other [facility] (current) drug therapy - Allergy status to other drugs, medicaments and biological substances - Allergy status to narcotic agent - Cough, unspecified - Chronic obstructive pulmonary disease with (acute) exacerbation - Personal history of nicotine dependence - Essential (primary) hypertension - Contact with and (suspected) exposure to COVID-19 - Hypothyroidism, unspecified - Allergy status to analgesic agent - [facility] (current) use of aspirin 10/05/2021 21:01 [facility] [place] TYPE: Emergency COMPLAINT: - COLD SYMPTOMS DIAGNOSES: - Pleural effusion, not elsewhere classified [...] of bronchus and lung - Hypothyroidism, unspecified 08/11/2021 17:18 [facility] [place] TYPE: Emergency COMPLAINT: - VOMITING BLOOD DIAGNOSES: - Hypothyroidism, unspecified - Other moth exterminator (current) drug therapy - Allergy status to other drugs, medicaments and biological substances - Personal history of nicotine dependence - Hormone replacement therapy - [facility] (current) use of aspirin - Allergy status to narcotic agent - Essential (primary) hypertension - Allergy status to analgesic agent - Gout, unspecified - Hemoptysis - Contact with and (suspected) exposure to COVID-19 - Personal history of other malignant neoplasm of bronchus and lung INPATIENT VISIT TRACKING (12 MO.) No inpatient visits to display in this time frame [id number]
[2022-06-20] MEDS ORDERED: HYCODAN 5 MG-1.55 ML PO (08:41)
[2022-06-20] MEDS ORDERED: VENTOLIN HFA18 GM INH (08:41)
[2022-06-20] MEDS ORDERED: PREDNISONE20 MG PO (08:41)
== END 2022-06-20 08:55 | disposition home or self-care (01) ==
LOC: ED 07:02
DX: U07.1 COVID-19 (principal); E03.9 Hypothyroidism, unspecified; I10 Essential (primary) hypertension; M10.9 Gout, unspecified; J44.9 Chronic obstructive pulmonary disease, unspecified; Z87.891 Personal history of nicotine dependence; Z88.8 Allergy status to other drugs, medicaments and biological substances; Z88.5 Allergy status to narcotic agent; Z79.899 Other long term (current) drug therapy; Z79.82 Long term (current) use of aspirin
CPT/HCPCS: 87502; 94640; 99283-25; J1100; U0003

== ENCOUNTER 2022-06-29 02:03 | Emergency (ER) | payer MEDICARE, OTHER ==
[~2022-06-29] VITALS: Ht 147.3 cm; Wt 49.9 kg
[~2022-06-29 02:03] MED LIST changes: +HYCODAN 5 MG-1.55 ML PO; +PREDNISONE20 MG PO; +VENTOLIN HFA18 GM INH
--- OUTSIDE RECORDS SUMMARY | 2022-06-29 02:06 | XMS ---
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 Care History Medical/Surgical 08/12/2021 [facility] - PATIENT ONCOLOGIST DR ZACK Plascencia VISIT COUNT (12 MO.) [facility] TOTAL 6 NOTE: Visits indicate total known visits. ED/UCC VISIT TRACKING (12 MO.) 06/29/2022 02:04 [facility] [place] TYPE: Emergency COMPLAINT: - SOB,COUGH AND ABD PAIN 06/20/2022 07:02 [facility] [place] TYPE: Emergency COMPLAINT: - COUGH DIAGNOSES: - [facility] (current) use of aspirin - Other jail (current) drug therapy - Cough, unspecified - Allergy status to narcotic agent - Hypothyroidism, unspecified - Chronic obstructive pulmonary disease, unspecified - Essential (primary) hypertension - Gout, unspecified - COVID-19 - Allergy status to other drugs, medicaments and biological substances - Personal history of nicotine dependence 05/20/2022 14:03 [facility] [place] TYPE: Emergency COMPLAINT: - SOB, DIZZY DIAGNOSES: - Allergy status to other drugs, medicaments and biological substances - Hypothyroidism, unspecified - Gout, unspecified - Personal history of nicotine dependence - Allergy status to narcotic agent - Shortness of breath - Other intermediate teacher (current) drug therapy - Bronchitis, not specified as acute or chronic - Personal history of other malignant neoplasm of bronchus and lung - buttermaker continuous churn (current) use of aspirin - Essential (primary) hypertension 02/23/2022 01:35 [facility] [place] TYPE: Emergency COMPLAINT: - COUGH DIAGNOSES: - Personal history of nicotine dependence - Essential (primary) hypertension - Contact with and (suspected) exposure to COVID-19 - Hypothyroidism, unspecified - Allergy status to analgesic agent - [facility] (current) use of aspirin - Other jail (current) drug therapy - Allergy status to other drugs, medicaments and biological substances - Allergy status to narcotic agent - Cough, unspecified - Chronic obstructive pulmonary disease with (acute) exacerbation 10/05/2021 21:01 [facility] [place] TYPE: Emergency COMPLAINT: - COLD SYMPTOMS DIAGNOSES: - Shortness of breath - Gout, unspecified - Personal history of nicotine dependence - Allergy status to narcotic agent - Personal history of other malignant neoplasm of bronchus and lung - Hypothyroidism, unspecified - Pleural effusion, not elsewhere classified - Contact with and (suspected) exposure to COVID-19 - Heart failure, unspecified - Allergy status to other drugs, medicaments and biological substances - Hypertensive heart disease with heart failure 08[facility]11[facility]2021 17[facility] COMPLAINT: - VOMITING BLOOD DIAGNOSES: - Allergy status to narcotic agent - Essential (primary) hypertension - Allergy status to analgesic agent - Gout, unspecified - Hemoptysis - Contact with and (suspected) exposure to COVID-19 - Personal history of other malignant neoplasm of bronchus and lung - Hypothyroidism, unspecified - Other jail (current) drug therapy - Allergy status to other drugs, medicaments and biological substances - Personal history of nicotine dependence - Hormone replacement therapy - buttermaker continuous churn (current) use of aspirin INPATIENT VISIT TRACKING (12 MO.) No inpatient visits to display in this time frame [email or web address]
[2022-06-29] MEDS ORDERED: BENZONATATE200 MG PO (02:20)
[2022-06-29] MEDS ORDERED: PREDNISONE20 MG PO (04:41)
== END 2022-06-29 04:54 | disposition home or self-care (01) ==
LOC: ED 02:03
DX: U07.1 COVID-19 (principal); J44.1 Chronic obstructive pulmonary disease with (acute) exacerbation; C34.90 Malignant neoplasm of unspecified part of unspecified bronchus or lung; E03.9 Hypothyroidism, unspecified; I10 Essential (primary) hypertension; M10.9 Gout, unspecified; Z87.891 Personal history of nicotine dependence; Z88.6 Allergy status to analgesic agent; Z88.5 Allergy status to narcotic agent; Z79.899 Other long term (current) drug therapy; Z79.82 Long term (current) use of aspirin
CPT/HCPCS: 36415; 71045; 74176; 80053; 81001; 83880; 84484; 85025; 87502; 94640; 96365; 96375; 99285-25; J0696; J2930; J7030; U0003

== ENCOUNTER 2023-03-03 12:08 | Inpatient (IN) | payer MEDICARE, OTHER ==
[~2023-03-03] VITALS: Ht 147.3 cm; Wt 51.0 kg
--- OUTSIDE RECORDS SUMMARY | ~2023-03-03 | XMS | Continuity of Care Document ---
Demographics + + + | Address | [address] | | | [place] [address] | + + + | Preferred Language | Unknown | + + + | Marital Status | Never | + + + | Roman Catholic Affiliation | Unknown | + + + | Race | | + + + | Ethnic Group | Not or | + + + Author + + + | Author | [facility] | + + + | Organization | [facility] | + + + | Address | [address] | | | [place] [address] | + + + | Phone | | + + + Care Team Providers + + + + | Care Avionics Technician Name | Role | Phone | + + + + Unavailable | Unavailable | + + + + Unavailable | Unavailable | + + + + Unavailable | Unavailable | + + + + Unavailable | Unavailable | + + + + Allergies and Intolerances + + + + + + | date | description | facility | reaction | severity | + + + + + + | (no date) | Acetaminophen | [facility] | (no reaction) | (no severity) | [facility] | | | + + + + + + | (no date) | acetaminophen | [facility] | (no reaction) | (no severity) | | [facility] | | | + + + + + + | (no date) | Hydrocortisone | [facility] | (no reaction) | (no severity) | | [facility] | | | + + + + + + | (no date) | Mild | [facility] | (no reaction) | (no severity) | | [facility] | | | + + + + + + | (no date) | Codeine | [facility] | (no reaction) | (no severity) | | [facility] | | | + + + + + + | (no date) | codeine | [facility] | (no reaction) | (no severity) | | [facility] | | | + + + + + + | (no date) | Diazepam | [facility] | (no reaction) | (no severity) | | [facility] | | | + + + + + + | (no date) | diazepam | [facility] | (no reaction) | (no severity) | | [facility] | | | + + + + + + | (no date) | Acetaminophen | [facility] | (no reaction) | (no severity) | | [facility] | | | + + + + + + | (no date) | Diazepam | [facility] | (no reaction) | (no severity) | | [facility] | | | + + + + + + | (no date) | Codeine | [facility] | (no reaction) | (no severity) | | [facility] | | | + + + + + + | (no date) | Acetaminophen | [facility] | (no reaction) | (no severity) | | [facility] | | | + + + + + + | (no date) | Oxycodone | [facility] | (no reaction) | (no severity) | | [facility] | | | + + + + + + | (no date) | Vomiting | [facility] | (no reaction) | (no severity) | | [facility] | | | + + + + + + | (no date) | Hydrocortisone | [facility] | (no reaction) | (no severity) | | [facility] | | | + + + + + + | (no date) | hydrocortisone | [facility] | (no reaction) | (no severity) | | [facility] | | | + + + + + + | (no date) | Oxycodone | [facility] | (no reaction) | (no severity) | | [facility] | | | + + + + + + | (no date) | oxycodone | [facility] | (no reaction) | (no severity) | | [facility] | | | + + + + + + | (no date) | Oxycodone | [facility] | (no reaction) | (no severity) | | [facility] | | | + + + + + + | (no date) | diazepam | [facility] | (no reaction) | (no severity) | + + + + + + | (no date) | codeine | [facility] | (no reaction) | (no severity) | + + + + + + | (no date) | oxycodone | [facility] | (no reaction) | (no severity) | + + + + + + | (no date) | acetaminophen | [facility] | (no reaction) | (no severity) | + + + + + + | (no date) | hydrocortisone | [facility] | (no reaction) | (no severity) | | | | | | | + + + + + + | (no date) | Diazepam | [facility] | (no reaction) | (no severity) | | [facility] | | | + + + + + + | (no date) | Codeine | [facility] | (no reaction) | (no severity) | | [facility] | | | + + + + + + | (no date) | Hydrocortisone | [facility] | (no reaction) | (no severity) | | [facility] | | | + + + + + + Encounters No information. Functional Status No information. Immunizations No information. Medications + + + + | date | description | facility | + + + + | 2022-03-01 00:00 | ERGOCALCIFEROL (VITAMIN | [facility] | | | D2) | | + + + + | 2022-05-20 00:00 | ERGOCALCIFEROL (VITAMIN | [facility] | | | D2) | | + + + + | 2022-06-20 00:00 | ERGOCALCIFEROL (VITAMIN | [facility] | | | D2) | | + + + + | 2022-06-29 00:00 | ERGOCALCIFEROL (VITAMIN | [facility] | | | D2) | | + + + + | 2023-02-05 00:00 | ERGOCALCIFEROL (VITAMIN | [facility] | | | D2) | | + + + + | 2022-03-01 00:00 | ASPIRIN | [facility] | + + + + | 2022-05-20 00:00 | ASPIRIN | [facility] | + + + + | 2022-06-20 00:00 | ASPIRIN | [facility] | + + + + | 2022-06-29 00:00 | ASPIRIN | [facility] | + + + + | 2023-02-05 00:00 | ASPIRIN | [facility] | + + + + | 2022-03-01 00:00 | ALLOPURINOL | [facility] | + + + + | 2022-05-20 00:00 | ALLOPURINOL | [facility] | + + + + | 2022-06-20 00:00 | ALLOPURINOL | [facility] | + + + + | 2022-06-29 00:00 | ALLOPURINOL | [facility] | + + + + | 2023-02-05 00:00 | ALLOPURINOL | [facility] | + + + + | 2022-03-01 00:00 | DEXAMETHASONE | [facility] | + + + + | 2022-05-20 00:00 | DEXAMETHASONE | [facility] | + + + + | 2022-06-20 00:00 | DEXAMETHASONE | [facility] | + + + + | 2022-06-29 00:00 | DEXAMETHASONE | [facility] | + + + + | 2023-02-05 00:00 | DEXAMETHASONE | [facility] | + + + + | 2022-03-01 00:00 | LISINOPRIL | [facility] | + + + + | 2022-05-20 00:00 | LISINOPRIL | [facility] | + + + + | 2022-06-20 00:00 | LISINOPRIL | [facility] | + + + + | 2022-06-29 00:00 | LISINOPRIL | [facility] | + + + + | 2023-02-05 00:00 | LISINOPRIL | [facility] | + + + + | 2022-05-20 00:00 | AZITHROMYCIN | [facility] | + + + + | 2022-06-29 00:00 | BENZONATATE | [facility] | + + + + | 2023-02-05 00:00 | BENZONATATE | [facility] | + + + + | 2023-02-05 00:00 | PANTOPRAZOLE SODIUM | [facility] | + + + + | 2022-05-20 00:00 | DORZOLAMIDE HCL | [facility] | + + + + | 2022-06-20 00:00 | DORZOLAMIDE HCL | [facility] | + + + + | 2022-06-29 00:00 | DORZOLAMIDE HCL | [facility] | + + + + | 2023-02-05 00:00 | DORZOLAMIDE HCL | [facility] | + + + + | 2022-03-01 00:00 | ONDANSETRON | [facility] | + + + + | 2022-05-20 00:00 | ONDANSETRON | [facility] | + + + + | 2022-06-20 00:00 | ONDANSETRON | [facility] | + + + + | 2022-06-29 00:00 | ONDANSETRON | [facility] | + + + + | 2023-02-05 00:00 | ONDANSETRON | [facility] | + + + + | 2022-06-20 00:00 | predniSONE | [facility] | + + + + | 2022-06-29 00:00 | predniSONE | [facility] | + + + + | 2022-05-20 00:00 | TIOTROPIUM BROMIDE | [facility] | + + + + | 2022-06-20 00:00 | TIOTROPIUM BROMIDE | [facility] | + + + + | 2022-06-29 00:00 | TIOTROPIUM BROMIDE | [facility] | + + + + | 2023-02-05 00:00 | TIOTROPIUM BROMIDE | [facility] | + + + + | 2022-03-01 00:00 | ALBUTEROL SULFATE | [facility] | + + + + | 2022-05-20 00:00 | ALBUTEROL SULFATE | [facility] | + + + + | 2022-06-20 00:00 | ALBUTEROL SULFATE | [facility] | + + + + | 2022-06-29 00:00 | ALBUTEROL SULFATE | [facility] | + + + + | 2023-02-05 00:00 | ALBUTEROL SULFATE | [facility] | + + + + | 2022-02-23 00:00 | AZITHROMYCIN | [facility] | + + + + | 2022-06-20 00:00 | ALBUTEROL SULFATE | [facility] | + + + + | 2022-06-20 00:00 | ALBUTEROL SULFATE | [facility] | + + + + | 2022-06-20 00:00 | ALBUTEROL SULFATE | [facility] | + + + + | 2022-03-01 00:00 | LEVOTHYROXINE SODIUM | [facility] | + + + + | 2022-05-20 00:00 | LEVOTHYROXINE SODIUM | [facility] | + + + + | 2022-06-20 00:00 | LEVOTHYROXINE SODIUM | [facility] | + + + + | 2022-06-29 00:00 | LEVOTHYROXINE SODIUM | [facility] | + + + + | 2023-02-05 00:00 | LEVOTHYROXINE SODIUM | [facility] | + + + + | 2022-06-20 00:00 | Hydrocodone Bit/Homatrop | [facility] | | | [facility] | | + + + + Problems + + + + | date | description | facility | + + + + | 2017-09-17 00:00 | Gout of left knee | [facility] | + + + + | 2017-09-17 00:00 | Gout of left knee | [facility] | + + + + | 2017-09-17 00:00 | Gout of left knee | [facility] | + + + + | 2021-01-25 00:00 | Shortness of breath | [facility] | + + + + | 2021-01-25 00:00 | Shortness of breath | [facility] | + + + + | 2021-01-25 00:00 | Shortness of breath | [facility] | + + + + | 2021-01-25 00:00 | Hypoxia | [facility] | + + + + | 2021-01-25 00:00 | Hypoxia | [facility] | + + + + | 2021-01-25 00:00 | Hypoxia | [facility] | + + + + | 2021-01-29 00:00 | Pneumothorax on right | [facility] | + + + + | 2021-01-29 00:00 | Pneumothorax on right | [facility] | + + + + | 2021-01-29 00:00 | Pneumothorax on right | [facility] | + + + + | 2021-02-03 19:19 | Pneumothorax, unspecified | [facility] | | [facility] | + + + + | 2021-02-06 16:31:30 | Pneumothorax, unspecified | [facility] | + + + + | 2021-02-23 00:00 | Hypertension | [facility] | + + + + | 2021-02-23 00:00 | Hypertension | [facility] | + + + + | 2021-02-23 00:00 | Hypertension | [facility] | + + + + | 2021-02-23 00:00 | Pleural effusion | [facility] | + + + + | 2021-02-23 00:00 | Pleural effusion | [facility] | + + + + | 2021-02-23 00:00 | Pleural effusion | [facility] | + + + + | 2021-02-25 00:00 | Malignant neoplasm of lung | [facility] | | | | | + + + + | 2021-02-25 00:00 | Malignant neoplasm of lung | [facility] | | | | | + + + + | 2021-02-25 00:00 | Malignant neoplasm of lung | [facility] | | | | | + + + + | 2021-02-25 00:00 | Hemoptysis | [facility] | + + + + | 2021-02-25 00:00 | Hemoptysis | [facility] | + + + + | 2021-02-25 00:00 | Hemoptysis | [facility] | + + + + | 2021-02-25 00:00 | Dyspnea | [facility] | + + + + | 2021-02-25 00:00 | Dyspnea | [facility] | + + + + | 2021-02-25 00:00 | Dyspnea | [facility] | + + + + | 2021-10-05 00:00 | Acute on chronic | [facility] | | | congestive heart failure | | + + + + | 2021-10-05 00:00 | Acute on chronic | [facility] | | | congestive heart failure | | + + + + | 2021-10-05 00:00 | Acute on chronic | 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 LOBE, BRONCHUS OR | | | | LUNG | | + + + + | 2022-02-20 10:34 | PERICARDIAL EFFUSION | [facility] | | | (NONINFLAMMATORY) | | + + + + | 2022-02-20 10:34 | Other diseases of the | [facility] | | | pleura (J90-J94) | | + + + + | 2022-02-20 10:34 | OTHER NONSPECIFIC ABNORMAL | [facility] | | | FINDING OF LUNG FIELD | | + + + + | 2022-02-20 10:34 | PERSONAL HISTORY OF | [facility] | | | ANTINEOPLASTIC CHEMO | | + + + + | 2022-02-20 10:34 | PERSONAL HISTORY OF | [facility] | | | IRRADIATION | | + + + + | 2022-02-23 00:00 | Acute exacerbation of | [facility] | | | chronic obstructive | | | | pulmonary disease | | + + + + | 2022-02-23 00:00 | Acute exacerbation of | [facility] | | | chronic obstructive | | | | pulmonary disease | | + + + + | 2022-02-23 00:00 | Acute exacerbation of | [facility] | | | chronic obstructive | | | | pulmonary disease | | + + + + | 2022-06-20 00:00 | Infection due to severe | [facility] | | | acute respiratory syndrome | | | | coronavirus 2 (SARS-CoV-2) | | + + + + | 2022-06-20 00:00 | Infection due to severe | [facility] | | | acute respiratory syndrome | | | | coronavirus 2 (SARS-CoV-2) | | + + + + | 2022-06-20 00:00 | Infection due to severe | [facility] | | | acute respiratory syndrome | | | | coronavirus 2 (SARS-CoV-2) | | + + + + | 2022-06-29 00:00 | Chronic obstructive | [facility] | | | pulmonary disease with | | | | acute exacerbation | | + + + + | 2022-06-29 00:00 | Chronic obstructive | [facility] | | | pulmonary disease with | | | | acute exacerbation | | + + + + | 2022-06-29 02:04 | MALIGNANT NEOPLASM OF UNSP | [facility] | | | PART OF UNSP BRONCHUS O | | + + + + | 2022-06-29 02:04 | HYPOTHYROIDISM, | [facility] | | | UNSPECIFIED | | + + + + | 2022-06-29 02:04 | Essential (primary) | [facility] | | | hypertension | | + + + + | 2022-06-29 02:04 | CHRONIC OBSTRUCTIVE | [facility] | | | PULMONARY DISEASE W (ACUTE) | | | | EX | | + + + + | 2022-06-29 02:04 | GOUT, UNSPECIFIED | [facility] | + + + + | 2022-06-29 02:04 | SHORTNESS OF BREATH | [facility] | + + + + | 2022-06-29 02:04 | COVID-19 | [facility] | + + + + | 2022-06-29 02:04 | 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 (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) USE OF | [facility] | | | ASPIRIN | | + + + + | 2022-06-29 02:04 | OTHER CORRECTION (CURRENT) | [facility] | | | DRUG THERAPY | | + + + + | 2022-06-29 02:04 | PERSONAL HISTORY OF | [facility] | | | NICOTINE DEPENDENCE | | + + + + | 2022-06-29 02:04 | ALLERGY STATUS TO NARCOTIC | [facility] | | | AGENT STATUS | | + + + + | 2022-06-29 02:04 | ALLERGY STATUS TO | [facility] | | | ANALGESIC AGENT STATUS | | + + + + | 2022-07-23 11:28 | MALIGNANT NEOPLASM OF | [facility] | | | MIDDLE LOBE, BRONCHUS OR | | | | LUNG | | + + + + | 2022-07-23 11:28 | Other diseases of the | [facility] | | | pleura (J90-J94) | | + + + + | 2022-07-23 11:28 | PERSONAL HISTORY OF | [facility] | | | ANTINEOPLASTIC CHEMO | | + + + + | 2022-07-23 11:28 | PERSONAL HISTORY OF | [facility] | | | IRRADIATION | | + + + + | 2022-09-04 08:21 | MALIGNANT NEOPLASM OF | [facility] | | | MIDDLE LOBE, BRONCHUS OR | | | | LUNG | | + + + + | 2022-09-04 08:21 | PERSONAL HISTORY OF | [facility] | | | ANTINEOPLASTIC CHEMOTHERAPY | | | | | | + + + + | 2022-09-04 08:21 | PERSONAL HISTORY OF | [facility] | | | IRRADIATION | | + + + + | 2023-02-05 00:00 | Abdominal pain | [facility] | + + + + | 2023-02-05 00:00 | Hematuria | [facility] | + + + + | 2023-02-05 04:46 | Essential (primary) | [facility] | | | hypertension | | + + + + | 2023-02-05 04:46 | CHRONIC OBSTRUCTIVE | [facility] | | | PULMONARY DISEASE, | | | | UNSPECIFIED | | + + + + | 2023-02-05 04:46 | CALCULUS OF GALLBLADDER | [facility] | | | W/O CHOLECYSTITIS W/O OBST | | + + + + | 2023-02-05 04:46 | EPIGASTRIC PAIN | [facility] | + + + + | 2023-02-05 04:46 | HEMATURIA, UNSPECIFIED | [facility] | + + + + | 2023-02-05 04:46 | OTHER CORRECTION (CURRENT) | [facility] | | | DRUG THERAPY | | + + + + | 2023-02-05 04:46 | PERSONAL HISTORY OF | [facility] | | | NICOTINE DEPENDENCE | | + + + + | 2023-02-05 04:46 | ALLERGY STATUS TO NARCOTIC | [facility] | | | AGENT STATUS | | + + + + | 2023-02-05 04:46 | ALLERGY STATUS TO | [facility] | | | ANALGESIC AGENT STATUS | | + + + + | 2023-02-05 04:46 | ALLERGY STATUS TO OTH | [facility] | | | DRUG/MEDS/BIOL SUBST STATUS | | | | | | + + + + | 2023-02-18 09:27 | MALIGNANT NEOPLASM OF | [facility] | | | MIDDLE LOBE, BRONC | | + + + + | 2023-02-18 09:27 | MALIGNANT NEOPLASM OF | [facility] | | | MIDDLE LOBE, BRONCHUS OR | | | | LUNG | | + + + + | 2023-02-18 09:27 | CHRONIC AND OTHER | [facility] | | | PULMONARY MANIFESTATIONS | | | | DUE TO | | + + + + | 2023-02-18 09:27 | WHITE MATTER DISEASE, | [facility] | | | UNSPECIFIED | | + + + + | 2023-02-18 09:27 | PERSONAL HISTORY OF | [facility] | | | ANTINEOPLASTIC CHEMO | | + + + + | 2023-02-18 09:27 | PERSONAL HISTORY OF | [facility] | | | IRRADIATION | | + + + + | 2023-02-18 11:30 | MALIGNANT NEOPLASM OF | [facility] | | | MIDDLE LOBE, BRONC | | + + + + | 2023-02-18 11:30 | PERSONAL HISTORY OF | [facility] | | | ANTINEOPLASTIC CHEMO | | + + + + | 2023-02-18 11:30 | PERSONAL HISTORY OF | [facility] | | | IRRADIATION | | + + + + Procedures No information. Results/Labs +--------+--------+ +---------+--------+---------+ | test | date | facility | value | unit | notes | +--------+--------+ +---------+--------+---------+ + + | Result panel 1 | + + + + + +---------+ + + | | 2021-10-05 | [facility] | 0.037 | (missing) | (missing) | | (unavailable | 21:24 [facility] | | | | + + + +---------+ + + + + | Result panel 2 | + + + + + + + + + | | 2022-02-23 | [facility] | NEGATIVE | (missing) | (missing) | | (unavailable | 01:47 [facility] | | | | + + + + + + + + + | Result panel 3 | + + + + + + + + + | | 2022-02-23 | [facility] | NEGATIVE | (missing) | (missing) | | (unavailable | 01:47 [facility] | | | | + + + + + + + + + | Result panel 4 | + + + + + + + + + | | 2022-02-23 | [facility] | NEGATIVE | (missing) | (missing) | | (unavailable | 01:47 [facility] | | | | + + + + + + + + + | Result panel 5 | + + + + + + + + + | | 2022-02-23 | [facility] | NEGATIVE | (missing) | (missing) | | (unavailable | 01:47 [facility] | | | | + + + + + + + + + | Result panel 6 | + + + + + +-------+ + + | | 2022-02-23 | [facility] | 8.2 | (missing) | (missing) | | (unavailable | 02:11 [facility] | | | | + + + +-------+ + + + + | Result panel 7 | + + + + + +--------+ + + | | 2022-02-23 | [facility] | 4.70 | (missing) | (missing) | | (unavailable | 02:11 [facility] | | | | + + + +--------+ + + + + | Result panel 8 | + + + + + +--------+ + + | | 2022-02-23 | [facility] | 13.1 | (missing) | (missing) | | (unavailable | 02:11 [facility] | | | | + + + +--------+ + + + + | Result panel 9 | + + + + + +--------+ + + | | 2022-02-23 | [facility] | 41.3 | (missing) | (missing) | | (unavailable | 02:11 [facility] | | | | + + + +--------+ + + + + | Result panel 10 | + + + + + +--------+ + + | | 2022-02-23 | [facility] | 87.9 | (missing) | (missing) | | (unavailable | 02:11 [facility] | | | | + + + +--------+ + + + + | Result panel 11 | + + + + + +--------+ + + | | 2022-02-23 | [facility] | 27.8 | (missing) | (missing) | | (unavailable | 02:11 [facility] | | | | + + + +--------+ + + + + | Result panel 12 | + + + + + +--------+ + + | | 2022-02-23 | [facility] | 31.6 | (missing) | (missing) | | (unavailable | 02:11 [facility] | | | | + + + +--------+ + + + + | Result panel 13 | + + + + + +--------+ + + | | 2022-02-23 | [facility] | 18.1 | (missing) | (missing) | | (unavailable | 02:11 [facility] | | | | + + + +--------+ + + + + | Result panel 14 | + + + + + +-------+ + + | | 2022-02-23 | [facility] | 263 | (missing) | (missing) | | (unavailable | 02:11 [facility] | | | | + + + +-------+ + + + + | Result panel 15 | + + + + + +--------+ + + | | 2022-02-23 | [facility] | 68.4 | (missing) | (missing) | | (unavailable | 02:11 [facility] | | | | + + + +--------+ + + + + | Result panel 16 | + + + + + +--------+ + + | | 2022-02-23 | [facility] | 20.1 | (missing) | (missing) | | (unavailable | 02:11 [facility] | | | | + + + +--------+ + + + + | Result panel 17 | + + + + + +-------+ + + | | 2022-02-23 | [facility] | 8.1 | (missing) | (missing) | | (unavailable | 02:11 [facility] | | | | + + + +-------+ + + + + | Result panel 18 | + + + + + +-------+ + + | | 2022-02-23 | [facility] | 2.0 | (missing) | (missing) | | (unavailable | 02:11 [facility] | | | | + + + +-------+ + + + + | Result panel 19 | + + + + + +-------+ + + | | 2022-02-23 | [facility] | 1.4 | (missing) | (missing) | | (unavailable | 02:11 [facility] | | | | + + + +-------+ + + + + | Result panel 20 | + + + + + +------+---------+ + | | 2022-02-23 | [facility] | 92 | mg/dL | (missing) | | (unavailable | 02:11 [facility] | | | | + + + +------+---------+ + + + | Result panel 21 | + + + + + +------+---------+ + | | 2022-02-23 | [facility] | 16 | mg/dL | (missing) | | (unavailable | 02:11 [facility] | | | | + + + +------+---------+ + + + | Result panel 22 | + + + + + +--------+---------+ + | | 2022-02-23 | [facility] | 0.89 | mg/dL | (missing) | | (unavailable | 02:11 [facility] | | | | + + + +--------+---------+ + + + | Result panel 23 | + + + + + +------+ + + | | 2022-02-23 | [facility] | 70 | (missing) | (missing) | | (unavailable | 02:11 [facility] | | | | + + + +------+ + + + + | Result panel 24 | + + + + + +---------+ + + | | 2022-02-23 | [facility] | 17.97 | (missing) | (missing) | | (unavailable | 02:11 [facility] | | | | + + + +---------+ + + + + | Result panel 25 | + + + + + +-------+ + + | | 2022-02-23 | [facility] | 137 | (missing) | (missing) | | (unavailable | 02:11 [facility] | | | | + + + +-------+ + + + + | Result panel 26 | + + + + + +-------+ + + | | 2022-02-23 | [facility] | 4.7 | (missing) | (missing) | | (unavailable | 02:11 | [facility] | | | | + + + +-------+ + + + + | Result panel 27 | + + + + + +-------+ + + | | 2022-02-23 | [facility] | 101 | (missing) | (missing) | | (unavailable | 02:11 | [facility] | | | | + + + +-------+ + + + + | Result panel 28 | + + + + + +------+ + + | | 2022-02-23 | [facility] | 27 | (missing) | (missing) | | (unavailable | 02:11 | [facility] | | | | + + + +------+ + + + + | Result panel 29 | + + + + + +--------+ + + | | 2022-02-23 | [facility] | 13.7 | (missing) | (missing) | | (unavailable | 02:11 | [facility] | | | | + + + +--------+ + + + + | Result panel 30 | + + + + + +-------+---------+ + | | 2022-02-23 | [facility] | 9.3 | mg/dL | (missing) | | (unavailable | 02:11 | [facility] | | | | + + + +-------+---------+ + + + | Result panel 31 | + + + + + +-------+ + + | | 2022-02-23 | [facility] | 7.4 | (missing) | (missing) | | (unavailable | 02:11 [facility] | | | | + + + +-------+ + + + + | Result panel 32 | + + + + + +-------+ + + | | 2022-02-23 | [facility] | 3.1 | (missing) | (missing) | | (unavailable | 02:11 [facility] | | | | + + + +-------+ + + + + | Result panel 33 | + + + + + +-------+ + + | | 2022-02-23 | [facility] | 4.3 | (missing) | (missing) | | (unavailable | 02:11 [facility] | | | | + + + +-------+ + + + + | Result panel 34 | + + + + + +--------+ + + | | 2022-02-23 | [facility] | 0.72 | (missing) | (missing) | | (unavailable | 02:11 [facility] | | | | + + + +--------+ + + + + | Result panel 35 | + + + + + +-------+ + + | | 2022-02-23 | [facility] | 0.6 | (missing) | (missing) | | (unavailable | 02:11 | [facility] | | | | + + + +-------+ + + + + | Result panel 36 | + + + + + +------+ + + | | 2022-02-23 | [facility] | 33 | (missing) | (missing) | | (unavailable | 02:11 | [facility] | | | | + + + +------+ + + + + | Result panel 37 | + + + + + +------+ + + | | 2022-02-23 | [facility] | 12 | (missing) | (missing) | | (unavailable | 02:11 | [facility] | | | | + + + +------+ + + + + | Result panel 38 | + + + + + +-------+ + + | | 2022-02-23 | [facility] | 127 | (missing) | (missing) | | (unavailable | 02:11 | [facility] | | | | + + + +-------+ + + + + | Result panel 39 | + + + + + +--------+ + + | | 2022-02-23 | [facility] | 22.8 | (missing) | (missing) | | (unavailable | 02:11 | [facility] | | | | + + + +--------+ + + + + | Result panel 40 | + + + + + +-------+ + + | | 2022-05-20 | [facility] | 7.7 | (missing) | (missing) | | (unavailable | 17:25 [facility] | | | + + + +-------+ + + + + | Result panel 41 | + + + + + +--------+ + + | | 2022-05-20 | [facility] | 4.28 | (missing) | (missing) | | (unavailable | 17:25 [facility] | | | | + + + +--------+ + + + + | Result panel 42 | + + + + + +--------+ + + | | 2022-05-20 | [facility] | 12.3 | (missing) | (missing) | | (unavailable | 17:25 [facility] | | | + + + +--------+ + + + + | Result panel 43 | + + + + + +--------+ + + | | 2022-05-20 | [facility] | 38.8 | (missing) | (missing) | | (unavailable | 17:25 [facility] | | | + + + +--------+ + + + + | Result panel 44 | + + + + + +--------+ + + | | 2022-05-20 | [facility] | 90.5 | (missing) | (missing) | | (unavailable | 17:25 [facility] | | | + + + +--------+ + + + + | Result panel 45 | + + + + + +--------+ + + | | 2022-05-20 | [facility] | 28.7 | (missing) | (missing) | | (unavailable | 17:25 [facility] | | | + + + +--------+ + + + + | Result panel 46 | + + + + + +--------+ + + | | 2022-05-20 | [facility] | 31.7 | (missing) | (missing) | | (unavailable | 17:25 [facility] | | | + + + +--------+ + + + + | Result panel 47 | + + + + + +--------+ + + | | 2022-05-20 | [facility] | 17.7 | (missing) | (missing) | | (unavailable | 17:25 [facility] | | | + + + +--------+ + + + + | Result panel 48 | + + + + + +-------+ + + | | 2022-05-20 | [facility] | 311 | (missing) | (missing) | | (unavailable | 17:25 [facility] | | | + + + +-------+ + + + + | Result panel 49 | + + + + + +--------+ + + | | 2022-05-20 | [facility] | 65.0 | (missing) | (missing) | | (unavailable | 17:25 [facility] | | | + + + +--------+ + + + + | Result panel 50 | + + + + + +--------+ + + | | 2022-05-20 | [facility] | 27.9 | (missing) | (missing) | | (unavailable | 17:25 [facility] | | | + + + +--------+ + + + + | Result panel 51 | + + + + + +-------+ + + | | 2022-05-20 | [facility] | 5.5 | (missing) | (missing) | | (unavailable | 17:25 [facility] | | | + + + +-------+ + + + + | Result panel 52 | + + + + + +-------+ + + | | 2022-05-20 | [facility] | 1.0 | (missing) | (missing) | | (unavailable | 17:25 [facility] | | | + + + +-------+ + + + + | Result panel 53 | + + + + + +-------+ + + | | 2022-05-20 | [facility] | 0.6 | (missing) | (missing) | | (unavailable | 17:25 [facility] | | | + + + +-------+ + + + + | Result panel 54 | + + + + + +-------+---------+ + | | 2022-05-20 | [facility] | 104 | mg/dL | (missing) | | (unavailable | 17:25 [facility] | | | + + + +-------+---------+ + + + | Result panel 55 | + + + + + +------+---------+ + | | 2022-05-20 | [facility] | 12 | mg/dL | (missing) | | (unavailable | 17:25 [facility] | | | + + + +------+---------+ + + + | Result panel 56 | + + + + + +--------+---------+ + | | 2022-05-20 | [facility] | 1.15 | mg/dL | (missing) | | (unavailable | 17:25 [facility] | | | + + + +--------+---------+ + + + | Result panel 57 | + + + + + +------+ + + | | 2022-05-20 | [facility] | 51 | (missing) | (missing) | | (unavailable | 17:25 [facility] | | | + + + +------+ + + + + | Result panel 58 | + + + + + +---------+ + + | | 2022-05-20 | [facility] | 10.43 | (missing) | (missing) | | (unavailable | 17:25 [facility] | | | + + + +---------+ + + + + | Result panel 59 | + + + + + +-------+ + + | | 2022-05-20 | [facility] | 139 | (missing) | (missing) | | (unavailable | 17:25 [facility] | | | + + + +-------+ + + + + | Result panel 60 | + + + + + +-------+ + + | | 2022-05-20 | [facility] | 3.8 | (missing) | (missing) | | (unavailable | 17:25 [facility] | | | + + + +-------+ + + + + | Result panel 61 | + + + + + +-------+ + + | | 2022-05-20 | [facility] | 103 | (missing) | (missing) | | (unavailable | 17:25 [facility] | | | + + + +-------+ + + + + | Result panel 62 | + + + + + +------+ + + | | 2022-05-20 | [facility] | 26 | (missing) | (missing) | | (unavailable | 17:25 [facility] | | | + + + +------+ + + + + | Result panel 63 | + + + + + +--------+ + + | | 2022-05-20 | [facility] | 13.8 | (missing) | (missing) | | (unavailable | 17:25 [facility] | | | + + + +--------+ + + + + | Result panel 64 | + + + + + +-------+---------+ + | | 2022-05-20 | [facility] | 9.4 | mg/dL | (missing) | | (unavailable | 17:25 [facility] | | | | + + + +-------+---------+ + + + | Result panel 65 | + + + + + +-------+---------+ + | | 2022-05-20 | [facility] | 1.9 | mg/dL | (missing) | | (unavailable | 17:25 [facility] | | | | + + + +-------+---------+ + + + | Result panel 66 | + + + + + +-------+ + + | | 2022-05-20 | [facility] | 7.7 | (missing) | (missing) | | (unavailable | 17:25 [facility] | | | + + + +-------+ + + + + | Result panel 67 | + + + + + +-------+ + + | | 2022-05-20 | [facility] | 3.1 | (missing) | (missing) | | (unavailable | 17:25 [facility] | | | + + + +-------+ + + + + | Result panel 68 | + + + + + +-------+ + + | | 2022-05-20 | [facility] | 4.6 | (missing) | (missing) | | (unavailable | 17:25 [facility] | | | + + + +-------+ + + + + | Result panel 69 | + + + + + +--------+ + + | | 2022-05-20 | [facility] | 0.67 | (missing) | (missing) | | (unavailable | 17:25 [facility] | | | + + + +--------+ + + + + | Result panel 70 | + + + + + +-------+ + + | | 2022-05-20 | [facility] | 0.3 | (missing) | (missing) | | (unavailable | 17:25 [facility] | | | + + + +-------+ + + + + | Result panel 71 | + + + + + +------+ + + | | 2022-05-20 | [facility] | 19 | (missing) | (missing) | | (unavailable | 17:25 [facility] | | | + + + +------+ + + + + | Result panel 72 | + + + + + +------+ + + | | 2022-05-20 | [facility] | 19 | (missing) | (missing) | | (unavailable | 17:25 [facility] | | | | + + + +------+ + + + + | Result panel 73 | + + + + + +-------+ + + | | 2022-05-20 | [facility] | 149 | (missing) | (missing) | | (unavailable | 17:25 [facility] | | | + + + +-------+ + + + + | Result panel 74 | + + + + + +--------+ + + | | 2022-05-20 | [facility] | 20.3 | (missing) | (missing) | | (unavailable | 17:25 [facility] | | | + + + +--------+ + + + + | Result panel 75 | + + + + + + + + + | | 2022-06-20 | [facility] | POSITIVE | (missing) | (missing) | | (unavailable | 07:30:08 [facility] | | | + + + + + + + + + | Result panel 76 | + + + + + + + + + | | 2022-06-20 | [facility] | NEGATIVE | (missing) | (missing) | | (unavailable | 07:30:08 [facility] | | | + + + + + + + + + | Result panel 77 | + + + + + + + + + | | 2022-06-20 | [facility] | NEGATIVE | (missing) | (missing) | | (unavailable | 07:30:08 [facility] | | | + + + + + + + + + | Result panel 78 | + + + + + + + + + | | 2022-06-20 | [facility] | NEGATIVE | (missing) | (missing) | | (unavailable | 07:30:08 [facility] | | | + + + + + + + + + | Result panel 79 | + + + + + + + + + | | 2022-06-29 | [facility] | POSITIVE | (missing) | (missing) | | (unavailable | 02:20:08 [facility] | | | + + + + + + + + + | Result panel 80 | + + + + + + + + + | | 2022-06-29 | [facility] | NEGATIVE | (missing) | (missing) | | (unavailable | 02:20:08 [facility] | | | + + + + + + + + + | Result panel 81 | + + + + + + + + + | | 2022-06-29 | [facility] | NEGATIVE | (missing) | (missing) | | (unavailable | 02:20:08 [facility] | | | + + + + + + + + + | Result panel 82 | + + + + + + + + + | | 2022-06-29 | [facility] | NEGATIVE | (missing) | (missing) | | (unavailable | 02:20:08 [facility] | | | + + + + + + + + + | Result panel 83 | + + + + + +--------+ + + | | 2022-06-29 | [facility] | 18.5 | (missing) | (missing) | | (unavailable | 02:30:08 [facility] | | | + + + +--------+ + + + + | Result panel 84 | + + + + + +-------+ + + | | 2022-06-29 | [facility] | 290 | (missing) | (missing) | | (unavailable | 02:30:08 [facility] | | | + + + +-------+ + + + + | Result panel 85 | + + + + + +--------+ + + | | 2022-06-29 | [facility] | 79.6 | (missing) | (missing) | | (unavailable | 02:30:08 [facility] | | | + + + +--------+ + + + + | Result panel 86 | + + + + + +--------+ + + | | 2022-06-29 | [facility] | 13.6 | (missing) | (missing) | | (unavailable | 02:30:08 [facility] | | | + + + +--------+ + + + + | Result panel 87 | + + + + + +-------+ + + | | 2022-06-29 | [facility] | 5.8 | (missing) | (missing) | | (unavailable | 02:30:08 [facility] | | | + + + +-------+ + + + + | Result panel 88 | + + + + + +-------+ + + | | 2022-06-29 | [facility] | 0.3 | (missing) | (missing) | | (unavailable | 02:30:08 [facility] | | | + + + +-------+ + + + + | Result panel 89 | + + + + + +-------+ + + | | 2022-06-29 | [facility] | 0.7 | (missing) | (missing) | | (unavailable | 02:30:08 [facility] | | | + + + +-------+ + + + + | Result panel 90 | + + + + + +-------+---------+ + | | 2022-06-29 | [facility] | 118 | mg/dL | (missing) | | (unavailable | 02:30:08 [facility] | | | + + + +-------+---------+ + + + | Result panel 91 | + + + + + +------+---------+ + | | 2022-06-29 | [facility] | 21 | mg/dL | (missing) | | (unavailable | 02:30:08 [facility] | | | + + + +------+---------+ + + + | Result panel 92 | + + + + + +--------+---------+ + | | 2022-06-29 | [facility] | 1.35 | mg/dL | (missing) | | (unavailable | 02:30:08 [facility] | | | + + + +--------+---------+ + + + | Result panel 93 | + + + + + +------+ + + | | 2022-06-29 | [facility] | 42 | (missing) | (missing) | | (unavailable | 02:30:08 [facility] | | | + + + +------+ + + + + | Result panel 94 | + + + + + +---------+ + + | | 2022-06-29 | [facility] | 15.55 | (missing) | (missing) | | (unavailable | 02:30:08 [facility] | | | + + + +---------+ + + + + | Result panel 95 | + + + + + +-------+ + + | | 2022-06-29 | [facility] | 135 | (missing) | (missing) | | (unavailable | 02:30:08 [facility] | | | + + + +-------+ + + + + | Result panel 96 | + + + + + +-------+ + + | | 2022-06-29 | [facility] | 3.4 | (missing) | (missing) | | (unavailable | 02:30:08 [facility] | | | + + + +-------+ + + + + | Result panel 97 | + + + + + +------+ + + | | 2022-06-29 | [facility] | 98 | (missing) | (missing) | | (unavailable | 02:30:08 [facility] | | | + + + +------+ + + + + | Result panel 98 | + + + + + +------+ + + | | 2022-06-29 | [facility] | 29 | (missing) | (missing) | | (unavailable | 02:30:08 [facility] | | | + + + +------+ + + + + | Result panel 99 | + + + + + +--------+ + + | | 2022-06-29 | [facility] | 11.4 | (missing) | (missing) | | (unavailable | 02:30:08 [facility] | | | + + + +--------+ + + + + | Result panel 100 | + + + + + +-------+---------+ + | | 2022-06-29 | [facility] | 9.0 | mg/dL | (missing) | | (unavailable | 02:30:08 [facility] | | | + + + +-------+---------+ + + + | Result panel 101 | + + + + + +-------+ + + | | 2022-06-29 | [facility] | 7.4 | (missing) | (missing) | | (unavailable | 02:30:08 [facility] | | | + + + +-------+ + + + + | Result panel 102 | + + + + + +-------+ + + | | 2022-06-29 | [facility] | 2.8 | (missing) | (missing) | | (unavailable | 02:30:08 [facility] | | | + + + +-------+ + + + + | Result panel 103 | + + + + + +-------+ + + | | 2022-06-29 | [facility] | 4.6 | (missing) | (missing) | | (unavailable | 02:30:08 [facility] | | | + + + +-------+ + + + + | Result panel 104 | + + + + + +--------+ + + | | 2022-06-29 | [facility] | 0.61 | (missing) | (missing) | | (unavailable | 02:30:08 [facility] | | | + + + +--------+ + + + + | Result panel 105 | + + + + + +-------+ + + | | 2022-06-29 | [facility] | 0.5 | (missing) | (missing) | | (unavailable | 02:30:08 [facility] | | | + + + +-------+ + + + + | Result panel 106 | + + + + + +------+ + + | | 2022-06-29 | [facility] | 28 | (missing) | (missing) | | (unavailable | 02:30:08 [facility] | | | + + + +------+ + + + + | Result panel 107 | + + + + + +------+ + + | | 2022-06-29 | [facility] | 22 | (missing) | (missing) | | (unavailable | 02:30:08 [facility] | | | + + + +------+ + + + + | Result panel 108 | + + + + + +-------+ + + | | 2022-06-29 | [facility] | 109 | (missing) | (missing) | | (unavailable | 02:30:08 [facility] | | | + + + +-------+ + + + + | Result panel 109 | + + + + + +--------+ + + | | 2022-06-29 | [facility] | 35.9 | (missing) | (missing) | | (unavailable | 02:30:08 [facility] | | | + + + +--------+ + + + + | Result panel 110 | + + + + + +--------+ + + | | 2022-06-29 | [facility] | 10.8 | (missing) | (missing) | | (unavailable | 02:30:08 [facility] | | | + + + +--------+ + + + + | Result panel 111 | + + + + + +--------+ + + | | 2022-06-29 | [facility] | 4.89 | (missing) | (missing) | | (unavailable | 02:30:08 [facility] | | | + + + +--------+ + + + + | Result panel 112 | + + + + + +--------+ + + | | 2022-06-29 | [facility] | 13.7 | (missing) | (missing) | | (unavailable | 02:30:08 [facility] | | | + + + +--------+ + + + + | Result panel 113 | + + + + + +--------+ + + | | 2022-06-29 | [facility] | 42.9 | (missing) | (missing) | | (unavailable | 02:30:08 [facility] | | | + + + +--------+ + + + + | Result panel 114 | + + + + + +--------+ + + | | 2022-06-29 | [facility] | 87.8 | (missing) | (missing) | | (unavailable | 02:30:08 [facility] | | | + + + +--------+ + + + + | Result panel 115 | + + + + + +--------+ + + | | 2022-06-29 | [facility] | 28.0 | (missing) | (missing) | | (unavailable | 02:30:08 [facility] | | | + + + +--------+ + + + + | Result panel 116 | + + + + + +--------+ + + | | 2022-06-29 | [facility] | 31.9 | (missing) | (missing) | | (unavailable | 02:30:08 [facility] | | | + + + +--------+ + + + + | Result panel 117 | + + + + + + + + + | | 2022-06-29 | [facility] | YELLOW | (missing) | (missing) | | (unavailable | 03:30:08 [facility] | | | + + + + + + + + + | Result panel 118 | + + + + + +---------+ + + | | 2022-06-29 | [facility] | CLEAR | (missing) | (missing) | | (unavailable | 03:30:08 [facility] | | | | + + + +---------+ + + + + | Result panel 119 | + + + + + + + + + | | 2022-06-29 | [facility] | NEGATIVE | (missing) | (missing) | | (unavailable | 03:30:08 [facility] | | | | + + + + + + + + + | Result panel 120 | + + + + + + + + + | | 2022-06-29 | [facility] | NEGATIVE | (missing) | (missing) | | (unavailable | 03:30:08 [facility] | | | | + + + + + + + + + | Result panel 121 | + + + + + + + + + | | 2022-06-29 | [facility] | NEGATIVE | (missing) | (missing) | | (unavailable | 03:30:08 [facility] | | | | + + + + + + + + + | Result panel 122 | + + + + + +---------+ + + | | 2022-06-29 | [facility] | 1.010 | (missing) | (missing) | | (unavailable | 03:30:08 [facility] | | | | + + + +---------+ + + + + | Result panel 123 | + + + + + + + + + | | 2022-06-29 | [facility] | MODERATE | (missing) | (missing) | | (unavailable | 03:30:08 [facility] | | | | + + + + + + + + + | Result panel 124 | + + + + + +-------+ + + | | 2022-06-29 | [facility] | 7.0 | (missing) | (missing) | | (unavailable | 03:30:08 [facility] | | | | + + + +-------+ + + + + | Result panel 125 | + + + + + + + + + | | 2022-06-29 | [facility] | NEGATIVE | (missing) | (missing) | | (unavailable | 03:30:08 [facility] | | | | + + + + + + + + + | Result panel 126 | + + + + + + + + + | | 2022-06-29 | [facility] | NORMAL | (missing) | (missing) | | (unavailable | 03:30:08 [facility] | | | | + + + + + + + + + | Result panel 127 | + + + + + + + + + | | 2022-06-29 | [facility] | NEGATIVE | (missing) | (missing) | | (unavailable | 03:30:08 [facility] | | | | + + + + + + + + + | Result panel 128 | + + + + + + + + + | | 2022-06-29 | [facility] | NEGATIVE | (missing) | (missing) | | (unavailable | 03:30:08 [facility] | | | | + + + + + + + + + | Result panel 129 | + + + + + +-------+ + + | | 2022-06-29 | [facility] | 2-3 | (missing) | (missing) | | (unavailable | 03:30:08 [facility] | | | | + + + +-------+ + + + + | Result panel 130 | + + + + + +-------+ + + | | 2022-06-29 | [facility] | 0-1 | (missing) | (missing) | | (unavailable | 03:30:08 [facility] | | | | + + + +-------+ + + + + | Result panel 131 | + + + + + + + + + | | 2022-06-29 | [facility] | SQUAMOUS 1+ | (missing) | (missing) | | (unavailable | 03:30:08 [facility] | | | | + + + + + + + + + | Result panel 132 | + + + + + +------+ + + | | 2022-06-29 | [facility] | No | (missing) | (missing) | | (unavailable | 03:30:08 [facility] | | | | + + + +------+ + + + + | Result panel 133 | + + + + + + + + + | | 2022-06-29 | [facility] | CLEAN CATCH | (missing) | (missing) | | (unavailable | 03:30:08 [facility] | | | | + + + + + + + + + | Result panel 134 | + + + + + +-------+ + + | | 2023-02-05 | [facility] | 7.2 | (missing) | (missing) | | (unavailable | 05:03:07 [facility] | | | | + + + +-------+ + + + + | Result panel 135 | + + + + + +--------+ + + | | 2023-02-05 | [facility] | 56.1 | (missing) | (missing) | | (unavailable | 05:03:07 [facility] | | | | + + + +--------+ + + + + | Result panel 136 | + + + + + +--------+ + + | | 2023-02-05 | [facility] | 27.1 | (missing) | (missing) | | (unavailable | 05:03:07 [facility] | | | | + + + +--------+ + + + + | Result panel 137 | + + + + + +-------+ + + | | 2023-02-05 | [facility] | 7.0 | (missing) | (missing) | | (unavailable | 05:03:07 [facility] | | | | + + + +-------+ + + + + | Result panel 138 | + + + + + +-------+ + + | | 2023-02-05 | [facility] | 9.4 | (missing) | (missing) | | (unavailable | 05:03:07 [facility] | | | | + + + +-------+ + + + + | Result panel 139 | + + + + + +-------+ + + | | 2023-02-05 | [facility] | 0.4 | (missing) | (missing) | | (unavailable | 05:03:07 [facility] | | | | + + + +-------+ + + + + | Result panel 140 | + + + + + +--------+ + + | | 2023-02-05 | [facility] | 4.68 | (missing) | (missing) | | (unavailable | 05:03:07 [facility] | | | | + + + +--------+ + + + + | Result panel 141 | + + + + + +--------+ + + | | 2023-02-05 | [facility] | 13.8 | (missing) | (missing) | | (unavailable | 05:03:07 [facility] | | | | + + + +--------+ + + + + | Result panel 142 | + + + + + +-------+---------+ + | | 2023-02-05 | [facility] | 106 | mg/dL | (missing) | | (unavailable | 05:03:07 [facility] | | | | + + + +-------+---------+ + + + | Result panel 143 | + + + + + +------+---------+ + | | 2023-02-05 | [facility] | 14 | mg/dL | (missing) | | (unavailable | 05::07 | [facility] | | | | + + + +------+---------+ + + + | Result panel 144 | + + + + + +--------+---------+ + | | 2023-02-05 | [facility] | 1.01 | mg/dL | (missing) | | (unavailable | 05:03:07 [facility] | | | | + + + +--------+---------+ + + + | Result panel 145 | + + + + + +------+ + + | | 2023-02-05 | [facility] | 60 | (missing) | (missing) | | (unavailable | 05:03:07 [facility] | | | | + + + +------+ + + + + | Result panel 146 | + + + + + +---------+ + + | | 2023-02-05 | [facility] | 13.86 | (missing) | (missing) | | (unavailable | 05:03:07 | [facility] | | | | + + + +---------+ + + + + | Result panel 147 | + + + + + +-------+ + + | | 2023-02-05 | [facility] | 137 | (missing) | (missing) | | (unavailable | 05:03:07 | [facility] | | | | + + + +-------+ + + + + | Result panel 148 | + + + + + +--------+ + + | | 2023-02-05 | [facility] | 43.3 | (missing) | (missing) | | (unavailable | 05:03:07 | [facility] | | | | + + + +--------+ + + + + | Result panel 149 | + + + + + +-------+ + + | | 2023-02-05 | [facility] | 3.2 | (missing) | (missing) | | (unavailable | 05:03:07 | [facility] | | | | + + + +-------+ + + + + | Result panel 150 | + + + + + +-------+ + + | | 2023-02-05 | [facility] | 100 | (missing) | (missing) | | (unavailable | 05:03:07 | [facility] | | | | + + + +-------+ + + + + | Result panel 151 | + + + + + +------+ + + | | 2023-02-05 | [facility] | 30 | (missing) | (missing) | | (unavailable | 05:03:07 | [facility] | | | | + + + +------+ + + + + | Result panel 152 | + + + + + +--------+ + + | | 2023-02-05 | [facility] | 10.2 | (missing) | (missing) | | (unavailable | 05: | [facility] | | | | + + + +--------+ + + + + | Result panel 153 | + + + + + +-------+---------+ + | | 2023-02-05 | [facility] | 9.0 | mg/dL | (missing) | | (unavailable | 05::07 | [facility] | | | | + + + +-------+---------+ + + + | Result panel 154 | + + + + + +-------+ + + | | 2023-02-05 | [facility] | 6.8 | (missing) | (missing) | | (unavailable | 05:: [facility] | | | | + + + +-------+ + + + + | Result panel 155 | + + + + + +-------+ + + | | 2023-02-05 | [facility] | 3.0 | (missing) | (missing) | | (unavailable | 05: [facility] | | | | + + + +-------+ + + + + | Result panel 156 | + + + + + +-------+ + + | | 2023-02-05 | [facility] | 3.8 | (missing) | (missing) | | (unavailable | 05: [facility] | | | | + + + +-------+ + + + + | Result panel 157 | + + + + + +--------+ + + | | 2023-02-05 | [facility] | 0.79 | (missing) | (missing) | | (unavailable | 05::07 | [facility] | | | | + + + +--------+ + + + + | Result panel 158 | + + + + + +-------+ + + | | 2023-02-05 | [facility] | 0.5 | (missing) | (missing) | | (unavailable | 05:03:07 | [facility] | | | | + + + +-------+ + + + + | Result panel 159 | + + + + + +--------+ + + | | 2023-02-05 | [facility] | 92.4 | (missing) | (missing) | | (unavailable | 05:03:07 | [facility] | | | | + + + +--------+ + + + + | Result panel 160 | + + + + + +------+ + + | | 2023-02-05 | [facility] | 21 | (missing) | (missing) | | (unavailable | 05:03:07 | [facility] | | | | + + + +------+ + + + + | Result panel 161 | + + + + + +-----+ + + | | 2023-02-05 | [facility] | 4 | (missing) | (missing) | | (unavailable | 05:03:07 | [facility] | | | | + + + +-----+ + + + + | Result panel 162 | + + + + + +-------+ + + | | 2023-02-05 | [facility] | 112 | (missing) | (missing) | | (unavailable | 05:03:07 | [facility] | | | | + + + +-------+ + + + + | Result panel 163 | + + + + + +-------+ + + | | 2023-02-05 | [facility] | 138 | (missing) | (missing) | | (unavailable | 05:03:07 | [facility] | | | | + + + +-------+ + + + + | Result panel 164 | + + + + + +--------+ + + | | 2023-02-05 | [facility] | 29.4 | (missing) | (missing) | | (unavailable | 05:03:07 | [facility] | | | | + + + +--------+ + + + + | Result panel 165 | + + + + + +--------+ + + | | 2023-02-05 | [facility] | 31.9 | (missing) | (missing) | | (unavailable | 05:03:07 | [facility] | | | | + + + +--------+ + + + + | Result panel 166 | + + + + + +--------+ + + | | 2023-02-05 | [facility] | 17.8 | (missing) | (missing) | | (unavailable | 05::07 [facility] | | | | + + + +--------+ + + + + | Result panel 167 | + + + + + +-------+ + + | | 2023-02-05 | [facility] | 238 | (missing) | (missing) | | (unavailable | 05:03:07 [facility] | | | | + + + +-------+ + + + + | Result panel 168 | + + + + + + + + + | | 2023-02-05 | [facility] | YELLOW | (missing) | (missing) | | (unavailable | 05:38:07 [facility] | | | | + + + + + + + + + | Result panel 169 | + + + + + +---------+ + + | | 2023-02-05 | [facility] | CLEAR | (missing) | (missing) | | (unavailable | 05:38:07 [facility] | | | | + + + +---------+ + + + + | Result panel 170 | + + + + + + + + + | | 2023-02-05 | [facility] | NEGATIVE | (missing) | (missing) | | (unavailable | 05:38:07 [facility] | | | | + + + + + + + + + | Result panel 171 | + + + + + + + + + | | 2023-02-05 | [facility] | NEGATIVE | (missing) | (missing) | | (unavailable | 05[facility]38:07 [facility] | | | | + + + + + + + + + | Result panel 172 | + + + + + + + + + | | 2023-02-05 | [facility] | NEGATIVE | (missing) | (missing) | | (unavailable | 05[facility]38:07 [facility] | | | | + + + + + + + + + | Result panel 173 | + + + + + +---------+ + + | | 2023-02-05 | [facility] | 1.015 | (missing) | (missing) | | (unavailable | 05:38:07 [facility] | | | | + + + +---------+ + + + + | Result panel 174 | + + + + + + + + + | | 2023-02-05 | [facility] | MODERATE | (missing) | (missing) | | (unavailable | 05:38:07 [facility] | | | | + + + + + + + + + | Result panel 175 | + + + + + +-------+ + + | | 2023-02-05 | [facility] | 6.5 | (missing) | (missing) | | (unavailable | 05[facility]38:07 [facility] | | | | + + + +-------+ + + + + | Result panel 176 | + + + + + +---------+ + + | | 2023-02-05 | [facility] | >=300 | (missing) | (missing) | | (unavailable | 05:38:07 [facility] | | | | + + + +---------+ + + + + | Result panel 177 | + + + + + + + + + | | 2023-02-05 | [facility] | NORMAL | (missing) | (missing) | | (unavailable | 05:38:07 [facility] | | | | + + + + + + + + + | Result panel 178 | + + + + + + + + + | | 2023-02-05 | [facility] | NEGATIVE | (missing) | (missing) | | (unavailable | 05[facility]38:07 [facility] | | | | + + + + + + + + + | Result panel 179 | + + + + + +---------+ + + | | 2023-02-05 | [facility] | TRACE | (missing) | (missing) | | (unavailable | 05[facility]38:07 [facility] | | | | + + + +---------+ + + + + | Result panel 180 | + + + + + +---------+ + + | | 2023-02-05 | [facility] | 21-40 | (missing) | (missing) | | (unavailable | 05:38:07 [facility] | | | | + + + +---------+ + + + + | Result panel 181 | + + + + + +-------+ + + | | 2023-02-05 | [facility] | 4-6 | (missing) | (missing) | | (unavailable | 05:38:07 [facility] | | | | + + + +-------+ + + + + | Result panel 182 | + + + + + + + + + | | 2023-02-05 | [facility] | SQUAMOUS 1+ | (missing) | (missing) | | (unavailable | 05:38:07 [facility] | | | | + + + + + + + + + | Result panel 183 | + + + + + + + + + | | 2023-02-05 | [facility] | NONE SEEN | (missing) | (missing) | | (unavailable | 05:38:07 [facility] | | | | + + + + + + + + + | Result panel 184 | + + + + + +------+ + + | | 2023-02-05 | [facility] | 1+ | (missing) | (missing) | | (unavailable | 05[facility]38:07 [facility] | | | | + + + +------+ + + + + | Result panel 185 | + + + + + + + + + | | 2023-02-05 | [facility] | NONE SEEN | (missing) | (missing) | | (unavailable | 05:38:07 [facility] | | | | + + + + + + + + + | Result panel 186 | + + + + + +------+ + + | | 2023-02-05 | [facility] | No | (missing) | (missing) | | (unavailable | 05[facility]38:07 [facility] | | | | + + + +------+ + + Social History No information. Vital Signs + + + +---------+ | date | measurement | value | units | + + + +---------+ | 2021-10-05 00:00 | BMI | 22.5 | kg/m2 | + + + +---------+ | 2021-10-05 00:00 | BP_diastolic | 94 | mmHg | + + + +---------+ | 2021-10-05 00:00 | BP_systolic | 138 | mmHg | + + + +---------+ | 2021-10-05 00:00 | heart_rate | 109 | /min | + + + +---------+ | 2021-10-05 00:00 | height_metric | 147.32 | cm | + + + +---------+ | 2021-10-05 00:00 | height_standard | 58 | in | + + + +---------+ | 2021-10-05 00:00 | o2_saturation | 90 | % | + + + +---------+ | 2021-10-05 00:00 | respiration_rate | 20 | /min | + + + +---------+ | 2021-10-05 00:00 | temperature_metric | 36.5 | C | | | | | | + + + +---------+ | 2021-10-05 00:00 | | 97.7 | F | | | temperature_standar | | | | | d | | | + + + +---------+ | 2021-10-05 00:00 | weight_metric | 48.8 | kg | + + + +---------+ | 2021-10-05 00:00 | weight_standard | 107.59 | lb | + + + +---------+ | 2022-02-23 00:00 | BMI | 21.1 | kg/m2 | + + + +---------+ | 2022-02-23 00:00 | BP_diastolic | 55 | mmHg | + + + +---------+ | 2022-02-23 00:00 | BP_systolic | 134 | mmHg | + + + +---------+ | 2022-02-23 00:00 | heart_rate | 99 | /min | + + + +---------+ | 2022-02-23 00:00 | height_metric | 147.32 | cm | + + + +---------+ | 2022-02-23 00:00 | height_standard | 58 | in | + + + +---------+ | 2022-02-23 00:00 | o2_saturation | 93 | % | + + + +---------+ | 2022-02-23 00:00 | respiration_rate | 17 | /min | + + + +---------+ | 2022-02-23 00:00 | temperature_metric | 36.44 | C | | | | | | + + + +---------+ | 2022-02-23 00:00 | | 97.6 | F | | | temperature_standar | | | | | d | | | + + + +---------+ | 2022-02-23 00:00 | weight_metric | 45.81 | kg | + + + +---------+ | 2022-02-23 00:00 | weight_standard | 100.99 | lb | + + + +---------+ | 2022-02-23 00:00 | weight_standard | 101 | lb | + + + +---------+ | 2022-05-20 00:00 | BMI | 22.2 | kg/m2 | + + + +---------+ | 2022-05-20 00:00 | BP_diastolic | 93 | mmHg | + + + +---------+ | 2022-05-20 00:00 | BP_systolic | 160 | mmHg | + + + +---------+ | 2022-05-20 00:00 | heart_rate | 94 | /min | + + + +---------+ | 2022-05-20 00:00 | height_metric | 147.32 | cm | + + + +---------+ | 2022-05-20 00:00 | height_standard | 58 | in | + + + +---------+ | 2022-05-20 00:00 | o2_saturation | 98 | % | + + + +---------+ | 2022-05-20 00:00 | respiration_rate | 28 | /min | + + + +---------+ | 2022-05-20 00:00 | temperature_metric | 36.61 | C | | | | | | + + + +---------+ | 2022-05-20 00:00 | | 97.9 | F | | | temperature_standar | | | | | d | | | + + + +---------+ | 2022-05-20 00:00 | weight_metric | 48.08 | kg | + + + +---------+ | 2022-05-20 00:00 | weight_standard | 106 | lb | + + + +---------+ | 2022-06-20 00:00 | BMI | 23.0 | kg/m2 | + + + +---------+ | 2022-06-20 00:00 | BP_diastolic | 76 | mmHg | + + + +---------+ | 2022-06-20 00:00 | BP_systolic | 145 | mmHg | + + + +---------+ | 2022-06-20 00:00 | heart_rate | 100 | /min | + + + +---------+ | 2022-06-20 00:00 | height_metric | 147.32 | cm | + + + +---------+ | 2022-06-20 00:00 | height_standard | 58 | in | + + + +---------+ | 2022-06-20 00:00 | o2_saturation | 96 | % | + + + +---------+ | 2022-06-20 00:00 | respiration_rate | 27 | /min | + + + +---------+ | 2022-06-20 00:00 | temperature_metric | 36.89 | C | | | | | | + + + +---------+ | 2022-06-20 00:00 | | 98.4 | F | | | temperature_standar | | | | | d | | | + + + +---------+ | 2022-06-20 00:00 | weight_metric | 49.9 | kg | + + + +---------+ | 2022-06-20 00:00 | weight_standard | 110 | lb | + + + +---------+ | 2022-06-20 00:00 | weight_standard | 110.01 | lb | + + + +---------+ | 2022-06-29 00:00 | BMI | 23.0 | kg/m2 | + + + +---------+ | 2022-06-29 00:00 | BP_diastolic | 65 | mmHg | + + + +---------+ | 2022-06-29 00:00 | BP_systolic | 125 | mmHg | + + + +---------+ | 2022-06-29 00:00 | heart_rate | 106 | /min | + + + +---------+ | 2022-06-29 00:00 | height_metric | 147.32 | cm | + + + +---------+ | 2022-06-29 00:00 | height_standard | 58 | in | + + + +---------+ | 2022-06-29 00:00 | o2_saturation | 93 | % | + + + +---------+ | 2022-06-29 00:00 | respiration_rate | 20 | /min | + + + +---------+ | 2022-06-29 00:00 | temperature_metric | 36.89 | C | | | | | | + + + +---------+ | 2022-06-29 00:00 | | 98.4 | F | | | temperature_standar | | | | | d | | | + + + +---------+ | 2022-06-29 00:00 | weight_metric | 49.9 | kg | + + + +---------+ | 2022-06-29 00:00 | weight_standard | 110 | lb | + + + +---------+ | 2022-06-29 00:00 | weight_standard | 110.01 | lb | + + + +---------+ | 2023-02-05 00:00 | BMI | 24.1 | kg/m2 | + + + +---------+ | 2023-02-05 00:00 | BP_diastolic | 87 | mmHg | + + + +---------+ | 2023-02-05 00:00 | BP_systolic | 179 | mmHg | + + + +---------+ | 2023-02-05 00:00 | heart_rate | 79 | /min | + + + +---------+ | 2023-02-05 00:00 | height_metric | 147.32 | cm | + + + +---------+ | 2023-02-05 00:00 | height_standard | 58 | in | + + + +---------+ | 2023-02-05 00:00 | o2_saturation | 100 | % | + + + +---------+ | 2023-02-05 00:00 | respiration_rate | 16 | /min | + + + +---------+ | 2023-02-05 00:00 | temperature_metric | 36 | C | | | | | | + + + +---------+ | 2023-02-05 00:00 | | 96.8 | F | | | temperature_standar | | | | | d | | | + + + +---------+ | 2023-02-05 00:00 | weight_metric | 52.3 | kg | + + + +---------+ | 2023-02-05 00:00 | weight_standard | 115.3 | lb | + + + +---------+"
--- OUTSIDE RECORDS SUMMARY | ~2023-03-03 | XMS | Continuity of Care Document ---
Demographics + + + | Address | [address] | | | [place] [address] | + + + | Preferred Language | Unknown | + + + | Marital Status | Never | + + + | Mandaen Affiliation | Unknown | + + + | Race | | + + + | Ethnic Group | Not or | + + + Author + + + | Author | [facility] | + + + | Organization | [facility] | + + + | Address | [address] | | | [place] [address] | + + + | Phone | | + + + Care Team Providers + + + + | Care Table Keeper Name | Role | Phone | + [...] | 2022-03-01 00:00 | ERGOCALCIFEROL (VITAMIN | [facility] | | | D2) | | + + + + | 2022-05-20 00:00 | ERGOCALCIFEROL (VITAMIN | [facility] | | | D2) | | + + + + | 2022-06-20 00:00 | ERGOCALCIFEROL (VITAMIN | [facility] | | | D2) | | + + + + | 2022-06-29 00:00 | ERGOCALCIFEROL (VITAMIN | [facility] | | | D2) | | + + + + | 2023-02-05 00:00 | ERGOCALCIFEROL (VITAMIN | [facility] | | | D2) | | + + + + | 2022-03-01 00:00 | ASPIRIN | [facility] | + + + + | 2022-05-20 00:00 | ASPIRIN | [facility] | + + + + | 2022-06-20 00:00 | ASPIRIN | [facility] | + + + + | 2022-06-29 00:00 | ASPIRIN | [facility] | + + + + | 2023-02-05 00:00 | ASPIRIN | [facility] | + + + + | 2022-03-01 00:00 | ALLOPURINOL | [facility] | + + + + | 2022-05-20 00:00 | ALLOPURINOL | [facility] | + + + + | 2022-06-20 00:00 | ALLOPURINOL | [facility] | + + + + | 2022-06-29 00:00 | ALLOPURINOL | [facility] | + + + + | 2023-02-05 00:00 | ALLOPURINOL | [facility] | + + + + | 2022-03-01 00:00 | DEXAMETHASONE | [facility] | + + + + | 2022-05-20 00:00 | DEXAMETHASONE | [facility] | + + + + | 2022-06-20 00:00 | DEXAMETHASONE | [facility] | + + + + | 2022-06-29 00:00 | DEXAMETHASONE | [facility] | + + + + | 2023-02-05 00:00 | DEXAMETHASONE | [facility] | + + + + | 2022-03-01 00:00 | LISINOPRIL | [facility] | + + + + | 2022-05-20 00:00 | LISINOPRIL | [facility] | + + + + | 2022-06-20 00:00 | LISINOPRIL | [facility] | + + + + | 2022-06-29 00:00 | LISINOPRIL | [facility] | + + + + | 2023-02-05 00:00 | LISINOPRIL | [facility] | + + + + | 2022-05-20 00:00 | AZITHROMYCIN | [facility] | + + + + | 2022-06-29 00:00 | BENZONATATE | [facility] | + + + + | 2023-02-05 00:00 | BENZONATATE | [facility] | + + + + | 2023-02-05 00:00 | PANTOPRAZOLE SODIUM | [facility] | + + + + | 2022-05-20 00:00 | DORZOLAMIDE HCL | [facility] | + + + + | 2022-06-20 00:00 | DORZOLAMIDE HCL | [facility] | + + + + | 2022-06-29 00:00 | DORZOLAMIDE HCL | [facility] | + + + + | 2023-02-05 00:00 | DORZOLAMIDE HCL | [facility] | + + + + | 2022-03-01 00:00 | ONDANSETRON | [facility] | + + + + | 2022-05-20 00:00 | ONDANSETRON | [facility] | + + + + | 2022-06-20 00:00 | ONDANSETRON | [facility] | + + + + | 2022-06-29 00:00 | ONDANSETRON | [facility] | + + + + | 2023-02-05 00:00 | ONDANSETRON | [facility] | + + + + | 2022-06-20 00:00 | predniSONE | [facility] | + + + + | 2022-06-29 00:00 | predniSONE | [facility] | + + + + | 2022-05-20 00:00 | TIOTROPIUM BROMIDE | [facility] | + + + + | 2022-06-20 00:00 | TIOTROPIUM BROMIDE | [facility] | + + + + | 2022-06-29 00:00 | TIOTROPIUM BROMIDE | [facility] | + + + + | 2023-02-05 00:00 | TIOTROPIUM BROMIDE | [facility] | + + + + | 2022-03-01 00:00 | ALBUTEROL SULFATE | [facility] | + + + + | 2022-05-20 00:00 | ALBUTEROL SULFATE | [facility] | + + + + | 2022-06-20 00:00 | ALBUTEROL SULFATE | [facility] | + + + + | 2022-06-29 00:00 | ALBUTEROL SULFATE | [facility] | + + + + | 2023-02-05 00:00 | ALBUTEROL SULFATE | [facility] | + + + + | 2022-02-23 00:00 | AZITHROMYCIN | [facility] | + + + + | 2022-06-20 00:00 | ALBUTEROL SULFATE | [facility] | + + + + | 2022-06-20 00:00 | ALBUTEROL SULFATE | [facility] | + + + + | 2022-06-20 00:00 | ALBUTEROL SULFATE | [facility] | + + + + | 2022-03-01 00:00 | LEVOTHYROXINE SODIUM | [facility] | + + + + | 2022-05-20 00:00 | LEVOTHYROXINE SODIUM | [facility] | + + + + | 2022-06-20 00:00 | LEVOTHYROXINE SODIUM | [facility] | + + + + | 2022-06-29 00:00 | LEVOTHYROXINE SODIUM | [facility] | + + + + | 2023-02-05 00:00 | LEVOTHYROXINE SODIUM | [facility] | + + + + | 2022-06-20 00:00 | Hydrocodone Bit/Homatrop | [facility] | | | [facility] | | + + + + Problems + + + + | date | description | facility | + + + + | 2017-09-17 00:00 | Gout of left knee | [facility] | + + + + | 2017-09-17 00:00 | Gout of left knee | [facility] | + + + + | 2017-09-17 00:00 | Gout of left knee | [facility] | + + + + | 2021-01-25 00:00 | Shortness of breath | [facility] | + + + + | 2021-01-25 00:00 | Shortness of breath | [facility] | + + + + | 2021-01-25 00:00 | Shortness of breath | [facility] | + + + + | 2021-01-25 00:00 | Hypoxia | [facility] | + + + + | 2021-01-25 00:00 | Hypoxia | [facility] | + + + + | 2021-01-25 00:00 | Hypoxia | [facility] | + + + + | 2021-01-29 00:00 | Pneumothorax on right | [facility] | + + + + | 2021-01-29 00:00 | Pneumothorax on right | [facility] | + + + + | 2021-01-29 00:00 | Pneumothorax on right | [facility] | + + + + | 2021-02-03 19:19 | Pneumothorax, unspecified | [facility] | | | [facility] | + + + + | 2021-02-06 16:31:30 | Pneumothorax, unspecified | [facility] | + + + + | 2021-02-23 00:00 | Hypertension | [facility] | + + + + | 2021-02-23 00:00 | Hypertension | [facility] | + + + + | 2021-02-23 00:00 | Hypertension | [facility] | + + + + | 2021-02-23 00:00 | Pleural effusion | [facility] | + + + + | 2021-02-23 00:00 | Pleural effusion | [facility] | + + + + | 2021-02-23 00:00 | Pleural effusion | [facility] | + + + + | 2021-02-25 00:00 | Malignant neoplasm of lung | [facility] | | | | | + + + + | 2021-02-25 00:00 | Malignant neoplasm of lung | [facility] | | | | | + + + + | 2021-02-25 00:00 | Malignant neoplasm of lung | [facility] | | | | | + + + + | 2021-02-25 00:00 | Hemoptysis | [facility] | + + + + | 2021-02-25 00:00 | Hemoptysis | [facility] | + + + + | 2021-02-25 00:00 | Hemoptysis | [facility] | + + + + | 2021-02-25 00:00 | Dyspnea | [facility] | + + + + | 2021-02-25 00:00 | Dyspnea | [facility] | + + + + | 2021-02-25 00:00 | Dyspnea | [facility] | + + + + | 2021-10-05 00:00 | Acute on chronic | [facility] | | | congestive heart failure | | + + + + | 2021-10-05 00:00 | Acute on chronic | [facility] | | | congestive heart failure | | + + + + | 2021-10-05 00:00 | Acute on chronic | [facility] | | | congestive heart failure | [...] 00:00 | Acute exacerbation of | [facility] | | | chronic obstructive | | | | pulmonary disease | | + + + + | 2022-02-23 00:00 | Acute exacerbation of | [facility] | | | chronic obstructive | | | | pulmonary disease | | + + + + | 2022-02-23 00:00 | Acute exacerbation of | [facility] | | | chronic obstructive | | | | pulmonary disease | | + + + + | 2022-06-20 00:00 | Infection due to severe | [facility] | | | acute respiratory syndrome | | | | coronavirus 2 (SARS-CoV-2) | | + + + + | 2022-06-20 00:00 | Infection due to severe | [facility] | | | acute respiratory syndrome | | | | coronavirus 2 (SARS-CoV-2) | | + + + + | 2022-06-20 00:00 | Infection due to severe | [facility] | | | acute respiratory syndrome | | | | coronavirus 2 (SARS-CoV-2) | | + + + + | 2022-06-29 00:00 | Chronic obstructive | [facility] | | | pulmonary disease with | | | | acute exacerbation | | + + + + | 2022-06-29 00:00 | Chronic obstructive | [facility] | | | pulmonary disease with | [...] + + + | 2022-06-29 02:04 | REMITTANCE CLERK (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
--- OUTSIDE RECORDS SUMMARY | ~2023-03-03 | XMS | Continuity of Care Document ---
Demographics + + + | Address | [address] | | | [place] [address] | + + + | Preferred Language | Unknown | + + + | Marital Status | Never | + + + | Mandaeism Affiliation | Unknown | + + + | Race | | + + + | Ethnic Group | Not or | + + + Author + + + | Author | [facility] | + + + | Organization | [facility] | + + + | Address | [address] | | | [place] [address] | + + + | Phone | | + + + Care Team Providers + + + + | Care Mica Washer Gluer Name | Role | Phone | + [...] 2022-03-01 00:00 | ERGOCALCIFEROL (VITAMIN | [facility] | | | D2) | | + + + + | 2022-05-20 00:00 | ERGOCALCIFEROL (VITAMIN | [facility] | | | D2) | | + + + + | 2022-06-20 00:00 | ERGOCALCIFEROL (VITAMIN | [facility] | | | D2) | | + + + + | 2022-06-29 00:00 | ERGOCALCIFEROL (VITAMIN | [facility] | | | D2) | | + + + + | 2023-02-05 00:00 | ERGOCALCIFEROL (VITAMIN | [facility] | | | D2) | | + + + + | 2022-03-01 00:00 | ASPIRIN | [facility] | + + + + | 2022-05-20 00:00 | ASPIRIN | [facility] | + + + + | 2022-06-20 00:00 | ASPIRIN | [facility] | + + + + | 2022-06-29 00:00 | ASPIRIN | [facility] | + + + + | 2023-02-05 00:00 | ASPIRIN | [facility] | + + + + | 2022-03-01 00:00 | ALLOPURINOL | [facility] | + + + + | 2022-05-20 00:00 | ALLOPURINOL | [facility] | + + + + | 2022-06-20 00:00 | ALLOPURINOL | [facility] | + + + + | 2022-06-29 00:00 | ALLOPURINOL | [facility] | + + + + | 2023-02-05 00:00 | ALLOPURINOL | [facility] | + + + + | 2022-03-01 00:00 | DEXAMETHASONE | [facility] | + + + + | 2022-05-20 00:00 | DEXAMETHASONE | [facility] | + + + + | 2022-06-20 00:00 | DEXAMETHASONE | [facility] | + + + + | 2022-06-29 00:00 | DEXAMETHASONE | [facility] | + + + + | 2023-02-05 00:00 | DEXAMETHASONE | [facility] | + + + + | 2022-03-01 00:00 | LISINOPRIL | [facility] | + + + + | 2022-05-20 00:00 | LISINOPRIL | [facility] | + + + + | 2022-06-20 00:00 | LISINOPRIL | [facility] | + + + + | 2022-06-29 00:00 | LISINOPRIL | [facility] | + + + + | 2023-02-05 00:00 | LISINOPRIL | [facility] | + + + + | 2022-05-20 00:00 | AZITHROMYCIN | [facility] | + + + + | 2022-06-29 00:00 | BENZONATATE | [facility] | + + + + | 2023-02-05 00:00 | BENZONATATE | [facility] | + + + + | 2023-02-05 00:00 | PANTOPRAZOLE SODIUM | [facility] | + + + + | 2022-05-20 00:00 | DORZOLAMIDE HCL | [facility] | + + + + | 2022-06-20 00:00 | DORZOLAMIDE HCL | [facility] | + + + + | 2022-06-29 00:00 | DORZOLAMIDE HCL | [facility] | + + + + | 2023-02-05 00:00 | DORZOLAMIDE HCL | [facility] | + + + + | 2022-03-01 00:00 | ONDANSETRON | [facility] | + + + + | 2022-05-20 00:00 | ONDANSETRON | [facility] | + + + + | 2022-06-20 00:00 | ONDANSETRON | [facility] | + + + + | 2022-06-29 00:00 | ONDANSETRON | [facility] | + + + + | 2023-02-05 00:00 | ONDANSETRON | [facility] | + + + + | 2022-06-20 00:00 | predniSONE | [facility] | + + + + | 2022-06-29 00:00 | predniSONE | [facility] | + + + + | 2022-05-20 00:00 | TIOTROPIUM BROMIDE | [facility] | + + + + | 2022-06-20 00:00 | TIOTROPIUM BROMIDE | [facility] | + + + + | 2022-06-29 00:00 | TIOTROPIUM BROMIDE | [facility] | + + + + | 2023-02-05 00:00 | TIOTROPIUM BROMIDE | [facility] | + + + + | 2022-03-01 00:00 | ALBUTEROL SULFATE | [facility] | + + + + | 2022-05-20 00:00 | ALBUTEROL SULFATE | [facility] | + + + + | 2022-06-20 00:00 | ALBUTEROL SULFATE | [facility] | + + + + | 2022-06-29 00:00 | ALBUTEROL SULFATE | [facility] | + + + + | 2023-02-05 00:00 | ALBUTEROL SULFATE | [facility] | + + + + | 2022-02-23 00:00 | AZITHROMYCIN | [facility] | + + + + | 2022-06-20 00:00 | ALBUTEROL SULFATE | [facility] | + + + + | 2022-06-20 00:00 | ALBUTEROL SULFATE | [facility] | + + + + | 2022-06-20 00:00 | ALBUTEROL SULFATE | [facility] | + + + + | 2022-03-01 00:00 | LEVOTHYROXINE SODIUM | [facility] | + + + + | 2022-05-20 00:00 | LEVOTHYROXINE SODIUM | [facility] | + + + + | 2022-06-20 00:00 | LEVOTHYROXINE SODIUM | [facility] | + + + + | 2022-06-29 00:00 | LEVOTHYROXINE SODIUM | [facility] | + + + + | 2023-02-05 00:00 | LEVOTHYROXINE SODIUM | [facility] | + + + + | 2022-06-20 00:00 | Hydrocodone Bit/Homatrop | [facility] | | | [facility] | | + + + + Problems + + + + | date | description | facility | + + + + | 2017-09-17 00:00 | Gout of left knee | [facility] | + + + + | 2017-09-17 00:00 | Gout of left knee | [facility] | + + + + | 2017-09-17 00:00 | Gout of left knee | [facility] | + + + + | 2021-01-25 00:00 | Shortness of breath | [facility] | + + + + | 2021-01-25 00:00 | Shortness of breath | [facility] | + + + + | 2021-01-25 00:00 | Shortness of breath | [facility] | + + + + | 2021-01-25 00:00 | Hypoxia | [facility] | + + + + | 2021-01-25 00:00 | Hypoxia | [facility] | + + + + | 2021-01-25 00:00 | Hypoxia | [facility] | + + + + | 2021-01-29 00:00 | Pneumothorax on right | [facility] | + + + + | 2021-01-29 00:00 | Pneumothorax on right | [facility] | + + + + | 2021-01-29 00:00 | Pneumothorax on right | [facility] | + + + + | 2021-02-03 19:19 | Pneumothorax, unspecified | [facility] | | | | [facility] | + + + + | 2021-02-06 16:31:30 | Pneumothorax, unspecified | [facility] | + + + + | 2021-02-23 00:00 | Hypertension | [facility] | + + + + | 2021-02-23 00:00 | Hypertension | [facility] | + + + + | 2021-02-23 00:00 | Hypertension | [facility] | + + + + | 2021-02-23 00:00 | Pleural effusion | [facility] | + + + + | 2021-02-23 00:00 | Pleural effusion | [facility] | + + + + | 2021-02-23 00:00 | Pleural effusion | [facility] | + + + + | 2021-02-25 00:00 | Malignant neoplasm of lung | [facility] | | | | | + + + + | 2021-02-25 00:00 | Malignant neoplasm of lung | [facility] | | | | | + + + + | 2021-02-25 00:00 | Malignant neoplasm of lung | [facility] | | | | | + + + + | 2021-02-25 00:00 | Hemoptysis | [facility] | + + + + | 2021-02-25 00:00 | Hemoptysis | [facility] | + + + + | 2021-02-25 00:00 | Hemoptysis | [facility] | + + + + | 2021-02-25 00:00 | Dyspnea | [facility] | + + + + | 2021-02-25 00:00 | Dyspnea | [facility] | + + + + | 2021-02-25 00:00 | Dyspnea | [facility] | + + + + | 2021-10-05 00:00 | Acute on chronic | [facility] | | | congestive heart failure | | + + + + | 2021-10-05 00:00 | Acute on chronic | [facility] | | | congestive heart failure | | + + + + | 2021-10-05 00:00 | Acute on chronic | [facility] | | | congestive heart failure [...] | Acute exacerbation of | [facility] | | | chronic obstructive | | | | pulmonary disease | | + + + + | 2022-02-23 00:00 | Acute exacerbation of | [facility] | | | chronic obstructive | | | | pulmonary disease | | + + + + | 2022-02-23 00:00 | Acute exacerbation of | [facility] | | | chronic obstructive | | | | pulmonary disease | | + + + + | 2022-06-20 00:00 | Infection due to severe | [facility] | | | acute respiratory syndrome | | | | coronavirus 2 (SARS-CoV-2) | | + + + + | 2022-06-20 00:00 | Infection due to severe | [facility] | | | acute respiratory syndrome | | | | coronavirus 2 (SARS-CoV-2) | | + + + + | 2022-06-20 00:00 | Infection due to severe | [facility] | | | acute respiratory syndrome | | | | coronavirus 2 (SARS-CoV-2) | | + + + + | 2022-06-29 00:00 | Chronic obstructive | [facility] | | | pulmonary disease with | | | | acute exacerbation | | + + + + | 2022-06-29 00:00 | Chronic obstructive | [facility] | | | pulmonary disease with [...] + + + | 2022-06-29 02:04 | UNIT SECY (CURRENT) USE OF | [facility] | | [...] 00:00 | Abdominal pain | [facility] | + + + + | 2023-02-05 00:00 | Hematuria | [facility] | + + + + | 2023-02-05 [...]
[~2023-03-03 12:08] MED LIST changes: +BENZONATATE200 MG PO; +PROTONIX40 MG PO
--- OUTSIDE RECORDS SUMMARY | 2023-03-03 12:12 | XMS ---
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 Care History Medical/Surgical 08/12/2021 [facility] - PATIENT ONCOLOGIST DR ZACK Plascencia VISIT COUNT (12 MO.) [address] [place], [place] [address] TOTAL 5 NOTE: Visits indicate total known visits. ED/UCC VISIT TRACKING (12 MO.) 03/03/2023 12:09 [facility] [place] TYPE: Emergency COMPLAINT: - SOB 02/05/2023 04:46 [facility] [place] TYPE: Emergency COMPLAINT: - ABD PAIN DIAGNOSES: - Allergy status to analgesic agent - Allergy status to narcotic agent - Allergy status to other drugs, medicaments and biological substances - Calculus of gallbladder without cholecystitis without obstruction - Chronic obstructive pulmonary disease, unspecified - Epigastric pain - Essential (primary) hypertension - Hematuria, unspecified - Other detention (current) drug therapy - Personal history of nicotine dependence 06/29/2022 02:04 [facility] [place] TYPE: Emergency COMPLAINT: - SOB,COUGH AND ABD PAIN DIAGNOSES: - Allergy status to analgesic agent - Allergy status to narcotic agent - Chronic obstructive pulmonary disease with (acute) exacerbation - COVID-19 - Essential (primary) hypertension - Gout, unspecified - Hypothyroidism, unspecified - perfusionist (current) use of aspirin - Malignant neoplasm of unspecified part of unspecified bronchus or lung - Other detention (current) drug therapy - Personal history of nicotine dependence - Shortness of breath 06/20/2022 07:02 [facility] [place] TYPE: Emergency COMPLAINT: - COUGH DIAGNOSES: - Allergy status to narcotic agent - Allergy status to other drugs, medicaments and biological substances - Chronic obstructive pulmonary disease, unspecified - Cough, unspecified - COVID-19 - Essential (primary) hypertension - Gout, unspecified - Hypothyroidism, unspecified - perfusionist (current) use of aspirin - Other detention (current) drug therapy - Personal history of nicotine dependence 05/20/2022 14:03 [facility] [place] TYPE: Emergency COMPLAINT: - SOB, DIZZY DIAGNOSES: - Allergy status to narcotic agent - Allergy status to other drugs, medicaments and biological substances - Bronchitis, not specified as acute or chronic - Essential (primary) hypertension - Gout, unspecified - Hypothyroidism, unspecified - [facility] (current) use of aspirin - Other eligibility technician (current) drug therapy - Personal history of nicotine dependence - Personal history of other malignant neoplasm of bronchus and lung - Shortness of breath INPATIENT VISIT TRACKING (12 MO.) No inpatient visits to display in this time frame [email or web address]
[2023-03-03 13:01] LABS: BASOPHILS 0.2 % (0-2); EOSINOPHILS 0.4 % (0-6); HEMATOCRIT 39.5 % (35.0-50.0); HEMOGLOBIN 12.6 g/dL (12.0-18.0); LYMPHOCYTES 13.2 % (24-44); MCH 30.4 (27-36); MCHC 31.9 g/dl (30-36); MCV 95.1 fl (81-99); MONOCYTES 2.1 % (0-12); NEUTROPHILS 84.1 % (39-80); PLATELET COUNT 195 K/uL (140-440); RBC 4.15 M/ul (4.3-5.7); RDW 17.8 (10.5-15.0)
[2023-03-03 13:20] LABS: ALBUMIN 2.7 g/dL (3.4-5.0); ALBUMIN/GLOBULIN RATIO 0.69 (1.1-2.4); ANION GAP 20.3 (7-21); BILIRUBIN, TOTAL 7.4 ng/dL (0.2-1.0); BUN/CREATININE RATIO 11.97 (6.0-28.6); CALCIUM 8.9 mg/dL (8.5-10.1); CREATININE, SERUM 1.92 mg/dL (0.55-1.02); MAGNESIUM 1.9 mg/dL (1.8-2.4); POTASSIUM 3.3 mmol/L (3.5-5.1); PROTEIN, TOTAL 6.6 g/dL (6.4-8.2)
[2023-03-03 14:06] LABS: INFLUENZA B NAA NEGATIVE (NEGATIVE); RESPIRATORY SYNCYTIAL VIR NAA NEGATIVE (NEGATIVE)
[2023-03-03 14:12] LABS: BASE EXCESS, BLOOD GAS -1.9 mmol/L (-2-2); O2 SATURATION, BLOOD GAS 95.2 % (95.0-100.0); OXYGEN RECEIVED, BLOOD GAS 60%; TOTAL CO2, BLOOD GAS 21.9
[2023-03-03 14:13] LABS: PCO2, BLOOD GAS 31.4 mmHg (35-45); PH, BLOOD GAS 7.44 (7.35-7.45); PO2, BLOOD GAS 75 mmHg (80-100)
[2023-03-03 18:50] VITALS: BP 139/78
[2023-03-03 21:00] VITALS: BP 111/87
--- NOTE | 2023-03-03 21:08 | EKG ---
[facility] [address] [facility] [place] [address] Signed Supraventricular tachycardia Right bundle branch block T wave abnormality, consider inferolateral ischemia Abnormal ECG When compared with ECG of 03-MAR-2023 12:36, (Unconfirmed) Right bundle branch block is now present Confirmed by UBALDO GOSS MD ([id number]) on 03/03/2023 9:08:15 PM Electronically Signed By: UBALDO GOSS 03/03/232107 PATIENT NAME: MELBA BRENNANJOYCE DALTON Electrocardiogram DATE OF : 52 PHYSICIAN: UBALDO GOSS REPORT #: [id number] REPORT IS CONFIDENTIAL AND NOT TO BE RELEASED WITHOUT AUTHORIZATION
--- NOTE | 2023-03-03 21:08 | EKG ---
[facility] [address] [facility] [place], [place] [address] Signed Sinus tachycardia Rightward axis ST \T\ T wave abnormality, consider inferolateral ischemia Abnormal ECG No previous ECGs available Confirmed by UBALDO GOSS MD ([id number]) on 03/03/2023 9:08:51 PM Electronically Signed By: UBALDO GOSS 03/03/232107 PATIENT NAME: JD BRENNAN Electrocardiogram DATE OF : 52 PHYSICIAN: UBALDO GOSS REPORT #: [id number] REPORT IS CONFIDENTIAL AND NOT TO BE RELEASED WITHOUT AUTHORIZATION
[2023-03-03 22:00] VITALS: BP 128/65
[2023-03-03 23:00] VITALS: BP 95/51
[2023-03-04] VITALS (11 sets, daily range): BP systolic 102–151; BP diastolic 61–90
[2023-03-04 05:44] LABS: BASOPHILS 0.3 % (0-2); HEMATOCRIT 36.2 % (35.0-50.0); HEMOGLOBIN 11.7 g/dL (12.0-18.0); LYMPHOCYTES 3.6 % (24-44); MCHC 32.2 g/dl (30-36); MCV 93.1 fl (81-99); MONOCYTES 1.7 % (0-12); NEUTROPHILS 94.4 % (39-80); PLATELET COUNT 154 K/uL (140-440); RBC 3.89 M/ul (4.3-5.7)
[2023-03-04 05:57] LABS: ANION GAP 15.1 (7-21); BUN/CREATININE RATIO 15.55 (6.0-28.6); CALCIUM 8.8 mg/dL (8.5-10.1); CREATININE, SERUM 1.8 mg/dL (0.55-1.02); MAGNESIUM 2.9 mg/dL (1.8-2.4); POTASSIUM 3.1 mmol/L (3.5-5.1)
[2023-03-04] MEDS ORDERED: SPIRIVA18 MCG INH (16:26)
[2023-03-04] MEDS ORDERED: LEVOTHYROXINE75 MCG PO (16:27)
[2023-03-04] MEDS ORDERED: DORZOLAMIDE HCL10 ML OU (16:28)
[2023-03-04] MEDS ORDERED: LEVOTHYROXINE50 MCG PO (16:29)
--- NOTE | 2023-03-04 20:03 | EKG ---
[facility] [address] [place], [place] [address] Signed Sinus rhythm with 1st degree AV block Biatrial enlargement Nonspecific intraventricular conduction delay ST \T\ T wave abnormality, consider inferior ischemia ST \T\ T wave abnormality, consider anterolateral ischemia Abnormal ECG When compared with ECG of 03-MAR-2023 15:42, Significant changes have occurred Confirmed by UBALDO GOSS MD ([id number]) on 03/04/2023 8:03:39 PM Electronically Signed By: UBALDO GOSS 03/04/232002 PATIENT NAME: JD BRENNAN SHA Electrocardiogram DATE OF : 52 PHYSICIAN: UBALDO GOSS REPORT #: [id number] REPORT IS CONFIDENTIAL AND NOT TO BE RELEASED WITHOUT AUTHORIZATION
--- NOTE | 2023-03-04 20:04 | EKG ---
[facility] [address] [facility] [place], [place] [address] Signed Normal sinus rhythm Possible Left atrial enlargement T wave abnormality, consider inferior ischemia T wave abnormality, consider anterolateral ischemia Prolonged QT Abnormal ECG No previous ECGs available Confirmed by UBALDO GOSS MD ([id number]) on 03/04/2023 8:04:46 PM Electronically Signed By: UBALDO GOSS 03/04/23 2004 PATIENT NAME: JD BRENNAN SHA Electrocardiogram DATE OF : 52 PHYSICIAN: UBALDO GOSS REPORT #: [id number] REPORT IS CONFIDENTIAL AND NOT TO BE RELEASED WITHOUT AUTHORIZATION
[2023-03-05] VITALS (7 sets, daily range): BP systolic 128–155; BP diastolic 64–87
[2023-03-05 05:37] LABS: HEMOGLOBIN 11.5 g/dL (12.0-18.0); RDW 18.1 (10.5-15.0)
[2023-03-05 05:38] LABS: HEMATOCRIT 35.4 % (35.0-50.0); MCH 29.8 (27-36); MCHC 32.4 g/dl (30-36); MCV 91.8 fl (81-99); PLATELET COUNT 179 K/uL (140-440); RBC 3.86 M/ul (4.3-5.7)
[2023-03-05 05:51] LABS: ALBUMIN 2.3 g/dL (3.4-5.0); ALBUMIN/GLOBULIN RATIO 0.61 (1.1-2.4); ANION GAP 12.4 (7-21); BILIRUBIN, TOTAL 1.8 ng/dL (0.2-1.0); BUN/CREATININE RATIO 18.84 (6.0-28.6); CALCIUM 8.8 mg/dL (8.5-10.1); CREATININE, SERUM 1.38 mg/dL (0.55-1.02); MAGNESIUM 2.6 mg/dL (1.8-2.4); POTASSIUM 4.4 mmol/L (3.5-5.1); PROTEIN, TOTAL 6.1 g/dL (6.4-8.2)
[2023-03-05 05:58] LABS: BANDS, MANUAL DIFF 35; EOSINOPHILS, MANUAL DIFF 1; LYMPHOCYTES, MANUAL DIFF 4; MONOCYTES, MANUAL DIFF 1; NEUTROPHILS, MANUAL DIFF 59
[2023-03-06 05:02] VITALS: BP 130/81
[2023-03-06 05:19] LABS: HEMATOCRIT 36.2 % (35.0-50.0); HEMOGLOBIN 11.6 g/dL (12.0-18.0); LYMPHOCYTES 16.7 % (24-44); MCH 30.1 (27-36); MCV 94.1 fl (81-99); MONOCYTES 33.3 % (0-12); PLATELET COUNT 167 K/uL (140-440); RBC 3.85 M/ul (4.3-5.7)
[2023-03-06 05:39] LABS: ALBUMIN 2.4 g/dL (3.4-5.0); ALBUMIN/GLOBULIN RATIO 0.69 (1.1-2.4); ANION GAP 15.5 (7-21); BILIRUBIN, TOTAL 1.2 ng/dL (0.2-1.0); BUN/CREATININE RATIO 17.61 (6.0-28.6); CALCIUM 8.8 mg/dL (8.5-10.1); CREATININE, SERUM 1.59 mg/dL (0.55-1.02); POTASSIUM 3.5 mmol/L (3.5-5.1); PROTEIN, TOTAL 5.9 g/dL (6.4-8.2)
[2023-03-06] MEDS ORDERED: ELIQUIS5 MG PO (08:54)
[2023-03-06 09:44] VITALS: BP 120/65
[2023-03-06] MEDS ORDERED: SULFAMETHOXAZO1 EAC1 PO (10:10)
== END 2023-03-06 10:30 | disposition home or self-care (01) | DRG 175 ==
LOC: ED 12:08 → CCU 12:10 → MS 03-05 16:41
PROVIDERS: Emergency Medicine; ADMIT Internal Medicine; ATTEND Internal Medicine
PROC: 5A0935A Assistance with Respiratory Ventilation, Less than 24 Consecutive Hours, High Flow/Velocity Cannula (ICD-10-PCS; principal; 2023-03-03)
PROC: 5A09357 Assistance with Respiratory Ventilation, Less than 24 Consecutive Hours, Continuous Positive Airway Pressure (ICD-10-PCS; 2023-03-03)
PROC: 4A033R1 Measurement of Arterial Saturation, Peripheral, Percutaneous Approach (ICD-10-PCS; 2023-03-03)
DX: I26.99 Other pulmonary embolism without acute cor pulmonale (principal); J96.91 Respiratory failure, unspecified with hypoxia; J44.1 Chronic obstructive pulmonary disease with (acute) exacerbation; N17.9 Acute kidney failure, unspecified; I47.1 Supraventricular tachycardia; E87.6 Hypokalemia; R74.01 Elevation of levels of liver transaminase levels; R77.8 Other specified abnormalities of plasma proteins; R79.89 Other specified abnormal findings of blood chemistry; I27.20 Pulmonary hypertension, unspecified; E03.9 Hypothyroidism, unspecified; I10 Essential (primary) hypertension; M10.9 Gout, unspecified; R94.5 Abnormal results of liver function studies; Z20.822 Contact with and (suspected) exposure to COVID-19; B96.20 Unspecified Escherichia coli [E. coli] as the cause of diseases classified elsewhere; Z85.118 Personal history of other malignant neoplasm of bronchus and lung; Z87.891 Personal history of nicotine dependence; Z98.890 Other specified postprocedural states; Z88.5 Allergy status to narcotic agent; Z88.8 Allergy status to other drugs, medicaments and biological substances; Z79.51 Long term (current) use of inhaled steroids; Z79.82 Long term (current) use of aspirin; Z79.899 Other long term (current) drug therapy
CPT/HCPCS: 36415; 36600; 71045; 71260; 74177; 76705; 80048; 80053; 82803; 83605; 83690; 83735; 83880; 84484; 85025; 85379; 87040; 87077; 87502; 93005; 93010; 93306; 94640; 94644; 94660; 94760; 94799; 96375; 99285-25; A9270; C9803; G0378; J0153; J0692; J1650; J1940; J2930; J3475; J3480; J3490; J7030; J7060; Q9967; U0002

== ENCOUNTER 2023-07-18 11:39 | Inpatient (IN) | payer MEDICARE, OTHER ==
[~2023-07-18] VITALS: Ht 147.3 cm; Wt 50.0 kg
[~2023-07-18 11:39] MED LIST changes: +DORZOLAMIDE HCL10 ML OU; +ELIQUIS5 MG PO; +LEVOTHYROXINE50 MCG PO; +SULFAMETHOXAZO1 EAC1 PO
--- OUTSIDE RECORDS SUMMARY | 2023-07-18 11:46 | XMS ---
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 - 2 Visits in 30 Days CARE PROVIDERS ZACK Keller Internal Medicine: Medical Oncology 02/26/2021-Current FAVIAN PHONE: [phone] Josiah has no Care Guidelines for this patient. Care History Medical/Surgical 08/12/2021 [facility] \R\- PATIENT ONCOLOGIST DR ZACK Plascencia VISIT COUNT (12 MO.) 4 [facility]. TOTAL 4 NOTE: Visits indicate total known visits. 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 - Personal history of nicotine dependence - Personal history of pulmonary embolism - Shortness of breath 03/03/2023 12:09 [facility] [place] TYPE: Emergency [...] (primary) hypertension - Hematuria, unspecified - Other senior care (current) drug therapy - Personal history of nicotine dependence INPATIENT VISIT TRACKING (12 MO.) 03/03/2023 18:17 [facility] [place] TYPE: Medical Surgical COMPLAINT: - COPD EXACERBATION/ PULMONARY EMBOLISM DIAGNOSES: - Abnormal results of liver function studies - Abnormal results of liver function studies - Acute kidney failure, unspecified - Acute kidney failure, unspecified - Allergy status to narcotic agent - Allergy status to narcotic agent - Allergy status to other drugs, medicaments and biological substances - Allergy status to other drugs, medicaments and biological substances - Chronic obstructive pulmonary disease with (acute) exacerbation - Chronic obstructive pulmonary disease with (acute) exacerbation - Contact with and (suspected) exposure to COVID-19 - Contact with and (suspected) exposure to COVID-19 - Elevation of levels of liver transaminase levels - Elevation of levels of liver transaminase levels - Essential (primary) hypertension - Essential (primary) hypertension - Gout, unspecified - Gout, unspecified - Hypokalemia - Hypokalemia - Hypothyroidism, unspecified - Hypothyroidism, unspecified - senior care (current) use of aspirin - senior care (current) use of aspirin - exterminator (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 - exterminator (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 - Other senior care (current) drug therapy - Other senior care (current) drug therapy - Other pulmonary embolism without acute cor pulmonale - Other specified abnormal findings of blood chemistry - Other specified abnormal findings of blood chemistry - Other specified abnormalities of plasma proteins - Other specified abnormalities of plasma proteins - Other specified postprocedural states - Other specified postprocedural states - Personal history of nicotine dependence - Personal history of nicotine dependence - Personal history of other malignant neoplasm of bronchus and lung - Personal history of other malignant neoplasm of bronchus and lung - Pulmonary hypertension, unspecified - Pulmonary hypertension, unspecified - Respiratory failure, unspecified with hypoxia - Respiratory failure, unspecified with hypoxia - Respiratory failure, unspecified, unspecified whether with hypoxia or hypercapnia - Sepsis, unspecified organism - Supraventricular tachycardia - Supraventricular tachycardia - Unspecified Escherichia coli [E. coli] as the cause of diseases classified elsewhere - Unspecified Escherichia coli [E. coli] as the cause of diseases classified elsewhere [email or web address]
[2023-07-18 12:31] LABS: BASOPHILS 0.3 % (0-2); EOSINOPHILS 0.2 % (0-6); HEMATOCRIT 39.2 % (35.0-50.0); HEMOGLOBIN 12.9 g/dL (12.0-18.0); LYMPHOCYTES 1.4 % (24-44); MCH 29.6 (27-36); MCHC 32.9 g/dl (30-36); MCV 90.1 fl (81-99); MONOCYTES 0.9 % (0-12); NEUTROPHILS 97.2 % (39-80); PLATELET COUNT 328 K/uL (140-440); RBC 4.35 M/ul (4.3-5.7); RDW 16.6 (10.5-15.0)
[2023-07-18 12:48] LABS: ALBUMIN 1.9 g/dL (3.4-5.0); ALBUMIN/GLOBULIN RATIO 0.39 (1.1-2.4); BILIRUBIN, TOTAL 4.1 ng/dL (0.2-1.0); BUN/CREATININE RATIO 16.66 (6.0-28.6); CALCIUM 9.3 mg/dL (8.5-10.1); CREATININE, SERUM 1.86 mg/dL (0.55-1.02); MAGNESIUM 1.9 mg/dL (1.8-2.4); PROTEIN, TOTAL 6.8 g/dL (6.4-8.2)
[2023-07-18 13:54] LABS: LACTIC ACID, BLOOD 1.9 mmol/L (0.4-2.0)
[2023-07-18 14:52] VITALS: BP 156/100
--- NOTE | 2023-07-18 15:25 | EKG ---
[facility] [address] [place] [address] [place] [address] Signed Sinus tachycardia Possible Left atrial enlargement Minimal voltage criteria for LVH, may be normal variant ( [place] product ) T wave abnormality, consider inferior ischemia Abnormal ECG When compared with ECG of 15-JUL-2023 17:03, Sinus rhythm has replaced Junctional rhythm Nonspecific T wave abnormality has replaced inverted T waves in Anterior leads Confirmed by UBALDO GOSS MD ([id number]) on 07/18/2023 3:25:30 PM Electronically Signed By: UBALDO GOSS 07/18/23 1525 PATIENT NAME: JD BRENNAN Electrocardiogram DATE OF : 52 PHYSICIAN: UBALDO GOSS REPORT #: [id number] REPORT IS CONFIDENTIAL AND NOT TO BE RELEASED WITHOUT AUTHORIZATION
[2023-07-18 17:35] VITALS: BP 182/96
[2023-07-18 19:59] VITALS: BP 154/83
[2023-07-18 22:11] VITALS: BP 176/87
[2023-07-18 23:14] VITALS: BP 157/84
[2023-07-18 23:58] VITALS: BP 166/90
[2023-07-19 00:53] VITALS: BP 151/89
[2023-07-19 01:52] VITALS: BP 136/91
[2023-07-19 05:45] LABS: HEMATOCRIT 28.2 % (35.0-50.0); HEMOGLOBIN 9.3 g/dL (12.0-18.0); MCH 29.9 (27-36); MCHC 33.1 g/dl (30-36); MCV 90.3 fl (81-99); PLATELET COUNT 236 K/uL (140-440); RBC 3.12 M/ul (4.3-5.7); RDW 17.1 (10.5-15.0)
[2023-07-19 05:54] LABS: ANION GAP 19.2 (7-21); BUN/CREATININE RATIO 13.87 (6.0-28.6); CALCIUM 7.9 mg/dL (8.5-10.1); CREATININE, SERUM 3.1 mg/dL (0.55-1.02); POTASSIUM 3.2 mmol/L (3.5-5.1)
[2023-07-19 07:16] LABS: BANDS, MANUAL DIFF 20; BASOPHILS, MANUAL DIFF 0; EOSINOPHILS, MANUAL DIFF 0; LYMPHOCYTES, MANUAL DIFF 8; MONOCYTES, MANUAL DIFF 6; NEUTROPHILS, MANUAL DIFF 66
[2023-07-19 08:15] LABS: BASE EXCESS, BLOOD GAS -3.9 mmol/L (-2-2); HCO3, BLOOD GAS 19.9 mmol/L (22-26); O2 SATURATION, BLOOD GAS 85.1 % (95.0-100.0); PCO2, BLOOD GAS 29.7 mmHg (35-45); PH, BLOOD GAS 7.43 (7.35-7.45); PO2, BLOOD GAS 48 mmHg (80-100); TOTAL CO2, BLOOD GAS 20.8
[2023-07-19 08:16] LABS: OXYGEN RECEIVED, BLOOD GAS 100%
[2023-07-19 09:22] VITALS: BP 70/47
== END 2023-07-19 09:49 | DRG 208 ==
LOC: ED 11:39 → MS 14:10
PROVIDERS: Emergency Medicine; ADMIT Internal Medicine; ATTEND Internal Medicine
PROC: 5A0935A Assistance with Respiratory Ventilation, Less than 24 Consecutive Hours, High Flow/Velocity Cannula (ICD-10-PCS; 2023-07-18)
PROC: 4A033R1 Measurement of Arterial Saturation, Peripheral, Percutaneous Approach (ICD-10-PCS; principal; 2023-07-19)
PROC: 5A09357 Assistance with Respiratory Ventilation, Less than 24 Consecutive Hours, Continuous Positive Airway Pressure (ICD-10-PCS; 2023-07-19)
PROC: 5A1935Z Respiratory Ventilation, Less than 24 Consecutive Hours (ICD-10-PCS; 2023-07-19)
PROC: 0BH17EZ Insertion of Endotracheal Airway into Trachea, Via Natural or Artificial Opening (ICD-10-PCS; 2023-07-19)
PROC: 3E033XZ Introduction of Vasopressor into Peripheral Vein, Percutaneous Approach (ICD-10-PCS; 2023-07-19)
DX: U07.1 COVID-19 (principal); J18.9 Pneumonia, unspecified organism; E87.1 Hypo-osmolality and hyponatremia; J44.0 Chronic obstructive pulmonary disease with (acute) lower respiratory infection; E87.6 Hypokalemia; Z66 Do not resuscitate; E03.9 Hypothyroidism, unspecified; M10.9 Gout, unspecified; R09.02 Hypoxemia; I10 Essential (primary) hypertension; Z88.5 Allergy status to narcotic agent; Z88.8 Allergy status to other drugs, medicaments and biological substances; Z99.81 Dependence on supplemental oxygen; Z85.118 Personal history of other malignant neoplasm of bronchus and lung; Z87.891 Personal history of nicotine dependence; Z79.01 Long term (current) use of anticoagulants; Z79.890 Hormone replacement therapy
CPT/HCPCS: 31500; 36415; 36600; 71045; 80048; 80053; 82803; 83605; 83735; 84484; 85025; 87040; 87186; 93005; 93010; 94640; 94660; 94760; 99285-25; J0171; J0456; J0461; J0692; J1940; J2185; J2270; J2930; J7030; J7060